=== PATIENT | female | born 1950 | race Caucasian/White ===

== ENCOUNTER 2016-05-08 11:29 | Observation (INO) | payer OTHER ==
[2016-05-08] MEDS ORDERED: FAMOTIDINE 20 MG TAB PO ONE (11:35)
[2016-05-08] MEDS ORDERED: ASPIRIN EC 325 MG TAB PO ONE (11:35)
[2016-05-08] MEDS ORDERED: DIAZEPAM 5 MG TAB PO ONE (11:35)
[2016-05-08] MEDS ORDERED: diphenhydrAMINE 25 MG CAP PO ONE ×2 (11:35→11:55)
[2016-05-08] MEDS ORDERED: NS 1,000 ML IV ONE (11:35)
--- NOTE | 2016-05-08 11:51 | CPEKG ---
Heart Rate: 76 RR Interval: 789 P-R Interval: 128 QRSD Interval: 76 QT Interval: 396 QTC Interval: 446 P [place]: 23 QRS [place]: 67 T Wave [place]: 69 EKG Severity - NORMAL ECG - EKG Impression: SINUS RHYTHM Electronically Signed By: Otoniel Gabriel 09-May-2016 17:21:19
[2016-05-08] MEDS ORDERED: FAMOTIDINE 20 MG TAB ONE (11:55)
[2016-05-08] MEDS ORDERED: ASPIRIN EC 81 MG TAB PO ONE (11:56)
[2016-05-08] MEDS ORDERED: DIAZEPAM 5 MG TAB ONE (11:56)
[2016-05-08] MEDS ORDERED: LIDOCAINE 1% 30 ML SDV ONE (11:57)
[2016-05-08] MEDS ORDERED: fentaNYL 100 MCG/2 ML INJ ONE ×2 (11:58→13:27)
[2016-05-08] MEDS ORDERED: MIDAZOLAM 2 MG/2 ML VIAL ONE ×2 (11:58→13:27)
[2016-05-08] MEDS ORDERED: IOPAMIDOL (ISOVUE-300) 200 ML BTL IV ONE (12:00)
[2016-05-08] MEDS ORDERED: HEPARIN 10,000 UNIT/10 ML MDV ONE (12:02)
[2016-05-08 12:09] LABS: % IMMATURE GRANULYOCYTES 0.6 % (0.0-1.1); ABSOLUTE IMMATURE GRANULOCYTES 0.04 10^3/uL (0.00-0.10); ADD DIFF? NO; ADD MORPH? NO; ADD SCAN? NO; ATYPICAL LYMPHOCYTE FLAG 10 (0-99); FRAGMENT RBC FLAG 0 (0-99); HEMATOCRIT 45.1 % (38.0-47.0); HEMOGLOBIN 15.9 g/dL (12.6-16.3); LEFT SHIFT FLG 0 (0-99); LIPEMIA HEMOLYSIS FLAG 90 (0-99); MEAN CELL HEMOGLOBIN 31.2 pg (27.9-34.1); MEAN CELL HEMOGLOBIN CONCENTR. 35.3 g/dL (32.4-36.7); MEAN CELL VOLUME 88.6 fL (81.5-99.8); MEAN PLATELET VOLUME 9.6 fL (8.7-11.7); PLATELET CLUMPS FLAG 0 (0-99); PLATELET COUNT 204 10^3/uL (150-400); RED BLOOD CELL COUNT 5.09 10^6/uL (4.18-5.33); RED CELL DISTRIBUTION WIDTH 12.4 % (11.5-15.2)
[2016-05-08 12:19] LABS: INR 1.01 (0.83-1.16); PROTIME(PATIENT) 13.2 SEC (12.0-15.0)
--- NOTE | 2016-05-08 12:31 | SUROPNOTE ---
PATRICIA Operative Report - Surgery Date of Procedure: 05/08/2016 Indication: This patient is a 65 year old woman with multiple previous percutaneous revascularization of bilateral SFA chronic total occlisions There are multiple overlapping SMART Nitinol self-expanding stents in the SFA, as well as multiple overlapping Viabahn covered stents in the left SFA extending into the popliteal and slightly into the common femoral. There has been recurrent edge restenosis and thrombosis. The patient has been followed most recently with arterial doppler ultrasound for surveillance. Surveillance ultrasound reveals increase in distal edge velocity, suggestive distal recurrent edge stenosis. She is experiencing moderate severity claudication symptoms in her left lower extremity. Therefore, the patient is brought in electively for percutaneous peripheral intervention, in attempt to prevent recurrent Viabahn stent thrombosis. Procedures performed: 1. Right femoral access 2. Left femoral angiography with lower extremity run-off 3. Drug-coated balloon angioplasty of proximal and distal stented segments in the left SFA. 4. Viabahn stent placement in the left distal SFA. 5. Post-dilation Autocad Designer balloon angioplasty in the left distal SFA. Description of procedure: Description, risks, benefits and alternatives were discussed in detail. Informed consent was obtained. The patient was brought to the catheterization laboratory where a timeout was performed. The right groin was sterilely prepped and draped. 2% lidocaine utilized for local anesthetic. Under fluoroscopic guidance, a 6-Fijian hemostatic sheath placed right common femoral artery utilizing modified Seldinger technique. A 6-Fijian JANA catheter was then used to engage the left common iliac and a Magic Torque wire was advanced. The JANA catheter was exchanged for a straight flush catheter. Runoff angiography of the left lower extremity was performed, demonstrating a focal distal intrastent 75% stenosis and a 50% proximal intrastent stenosis, but no additional areas of critical stenosis. The original 6-Fijian sheath was exchanged over a 0.035 guidewire for a 6-Fijian Destination up-and-over sheath. The Magic Torque wire was re-introduced in the left SFA, extending into the popliteal. A Lutonix 035 5.0mm x 40mm drug-coated balloon was utilized and positioned in the distal SFA to cover the area of intrastent stenosis. This was inflated to 12 atmospheres for 3 minutes and 33 seconds. The Magic Torque wire was exchanged for a 300cm Mailman wire. A 5mm x 5cm Viabahn stent was chosen, carefully positioned to cover the area of distal intrastent restenosis, and was deployed. Stent delivery system was removed. Next, a 5.0mm x 40mm Autocad Designer over the wire balloon was utilized within the distal stented segment for post-dilation, inflated to 20 atmospheres for 30 seconds. There was excellent result by angiography. Autocad Designer balloon was removed. To address the 51% proximal SFA restenosis, the decision was made to perform drug-coated balloon angioplasty in order to prevent further restenosis or recurrent Viabahn stent thrombosis. The Luristic wire was exchanged for the PenBlade wire. A 6.0mm x 40mm Lutonix 035 drug-coated balloon was positioned in the proximal SFA intrastent segment and inflated to 12 atmospheres for 3 minutes and 33 seconds. Balloon was removed. Final runoff angiography was performed with power-injector. There was excellent result demonstrated, no additional areas of critical stenosis seen. The 6-Fijian Destination sheath was exchanged for a 6-Fijian short sheath. Heparin was reversed with Protamine. The sheath will be removed in the CVC. Findings: 1. Hemodynamics: Aortic pressure 123/56, mean of 80. 2. Left lower extremity runoff angiography: The left common and external iliacs are widely patent. There is moderate but not severe internal iliac disease. The left common femoral is widely patent. The left SFA is stented from its origin to its distal portion. The most proximal stent edge is covered with a Nitinol stent with the remainder of the stent being initially Nitinol and then a layer of Viabahn. The origin of the profunda vessel is covered by the edge of a Nitinol stent but not by a Viabahn stent. Therefore, the profunda is patent and has no greater than 50% ostial stenosis. The proximal SFA stented segment contains a proximal 51% intrastent stenosis. The distal SFA stent, which extends beyond the SFA into the popliteal, contains a 75% intrastent edge restenosis. The peroneal vessel, tibioperoneal trunk, anterior tibial and posterior tibial are patent. 3. Percutaneous intervention: The 75% intrastent stenosis of the distal left SFA stent, treated with drug-coated balloon angioplasty, 5mm x 5cm Viabahn stent placement, and post-dilation Autocad Designer balloon angioplasty, with excellent result and 0% residual stenosis confirmed by angiography. The 51% intrastent stenosis of the proximal left SFA stent was treated with drug-coated balloon angioplasty, with excellent result and 0% residual stenosis. Overall Impression: 1. Recurrent distal intrastent edge restenosis in the left SFA at edges of Viabahn covered stent, successfully treated with drug-coated balloon angioplasty , Viabahn stent placement, and post-dilation Autocad Designer balloon angioplasty. 2. Recurrent proximal intrastent edge restenosis in the left SFA, successfully treated with drug-coated balloon angioplasty. Plan: 1. Continue smoking cessation, risk modification, medical therapy. 2. Continue aggressive surveillance strategy with Doppler ultrasound. Portions of this chart were entered by a scribe. I have reviewed this chart and agree with the documentation. Report scribed for Dr. Dominguez Pearson. Report scribed by Candice Watson.
[2016-05-08 12:50] LABS: ANION GAP 12 mEq/L (8-16); CALCIUM 9.3 mg/dL (8.5-10.4); CARBON DIOXIDE 25 mEq/l (22-31); CHLORIDE 103 mEq/L (97-110); CHOLESTEROL 227 mg/dL (140-220); CHOLESTEROL/HDL RATIO 5.16 RATIO (1.00-4.44); CREATININE 0.6 mg/dL (0.6-1.0); GLOMERULAR FILTRATION RATE > 60; GLUCOSE 175 mg/dL (70-100); HIGH DENSITY LIPOPROTEIN 44 mg/dL (40-85); LDL/HDL RATIO 2.43 RATIO (1.00-3.22); LOW DENSITY LIPOPROTEIN 107 mg/dL (80-100); MAGNESIUM 1.6 mg/dL (1.6-2.3); NON-HIGH DENSITY LIPOPROTEIN 183 mg/dL (90-129); POTASSIUM 4.2 mEq/L (3.5-5.2); SODIUM 140 mEq/L (134-144); TRIGLYCERIDE 380 mg/dL (35-135); VERY LOW DENSITY LIPOPROTEINS 76 mg/dL (8-25)
[2016-05-08] MEDS ORDERED: PROTAMINE SULFATE 50 MG/5 ML VIAL IVP ONE (14:33)
[2016-05-08] MEDS ORDERED: ONDANSETRON 4 MG/2 ML VIAL IVP PRN (14:52)
[2016-05-08] MEDS ORDERED: PRASUGREL HCL 10 MG TAB PO ONE ×2 (14:52→15:30)
[2016-05-08] MEDS ORDERED: TEMAZEPAM 15 MG CAP PO PRN (14:52)
[2016-05-08] MEDS ORDERED: HYDROCODONE/APAP 5/325 TAB PO PRN (14:52)
[2016-05-08] MEDS ORDERED: NITROGLYCERIN 0.4 MG BTL SL PRN (14:52)
[2016-05-08] MEDS ORDERED: OXYCODONE/APAP 5/325 TAB PO PRN (14:52)
[2016-05-08] MEDS ORDERED: LORazepam 2 MG/ML INJ IVP PRN (14:52)
[2016-05-08] MEDS ORDERED: ATROPINE SULFATE 1 MG/10 ML SYR IVP PRN (14:52)
[2016-05-08] MEDS ORDERED: ATROPINE SULFATE 1 MG/10 ML SYR ONE (14:56)
--- NOTE | 2016-05-08 15:24 | CPEKG ---
Heart Rate: 60 RR Interval: 1000 P-R Interval: 144 QRSD Interval: 82 QT Interval: 452 QTC Interval: 452 P [place]: 71 QRS [place]: 71 T Wave [place]: 71 EKG Severity - NORMAL ECG - EKG Impression: SINUS RHYTHM Electronically Signed By: Otoniel Gabriel 09-May-2016 17:21:13
[2016-05-08] MEDS: D5W 1/2 NS 1,000 ML IV SCH (17:08)
[2016-05-08] MEDS ORDERED: hydrALAZINE 20 MG/ML VIAL IVP PRN (18:15)
[2016-05-08] MEDS ORDERED: hydrALAZINE 20 MG/ML VIAL IVP ONE (18:30)
[2016-05-08] MEDS: FAMOTIDINE 20 MG TAB PO SCH (20:30)
[2016-05-08] MEDS ORDERED: PARoxetine HCL 20 MG TAB PO SCH (21:00)
[2016-05-09] MEDS: D5W 1/2 NS 1,000 ML IV SCH (00:39)
[2016-05-09 05:08] LABS: % IMMATURE GRANULYOCYTES 0.3 % (0.0-1.1); ABSOLUTE IMMATURE GRANULOCYTES 0.02 10^3/uL (0.00-0.10); ADD DIFF? NO; ADD MORPH? NO; ADD SCAN? NO; ATYPICAL LYMPHOCYTE FLAG 10 (0-99); FRAGMENT RBC FLAG 0 (0-99); HEMATOCRIT 43.1 % (38.0-47.0); HEMOGLOBIN 15.2 g/dL (12.6-16.3); LEFT SHIFT FLG 0 (0-99); LIPEMIA HEMOLYSIS FLAG 90 (0-99); MEAN CELL HEMOGLOBIN CONCENTR. 35.3 g/dL (32.4-36.7); MEAN CELL VOLUME 90.7 fL (81.5-99.8); PLATELET CLUMPS FLAG 10 (0-99); PLATELET COUNT 185 10^3/uL (150-400); RED BLOOD CELL COUNT 4.75 10^6/uL (4.18-5.33); RED CELL DISTRIBUTION WIDTH 12.5 % (11.5-15.2)
[2016-05-09 05:26] LABS: ALBUMIN 3.4 g/dL (3.5-5.0); ANION GAP 9 mEq/L (8-16); ASPARTATE AMINOTRANSFERASE 16 IU/L (14-46); BILIRUBIN,TOTAL 0.4 mg/dL (0.1-1.4); CARBON DIOXIDE 24 mEq/l (22-31); CHLORIDE 104 mEq/L (97-110); CREATININE 0.5 mg/dL (0.6-1.0); GLOMERULAR FILTRATION RATE > 60; GLUCOSE 288 mg/dL (70-100); LACTATE DEHYDROGENASE 386 IU/L (313-618); MAGNESIUM 1.6 mg/dL (1.6-2.3); POTASSIUM 3.9 mEq/L (3.5-5.2); SODIUM 137 mEq/L (134-144)
[2016-05-09] MEDS ORDERED: ACETAMINOPHEN 325 MG TAB ONE (07:30)
[2016-05-09] MEDS ORDERED: LORazepam 2 MG/ML INJ IVP ONE (07:46)
[2016-05-09 07:53] VITALS: BP 146/71; PULSE 70; RESP 18; TEMP 98.2; O2SAT 92
[2016-05-09] MEDS ORDERED: ACETAMINOPHEN/ASA/CAFFEINE 1 EACH TAB PO PRN (07:57)
[2016-05-09] MEDS: FAMOTIDINE 20 MG TAB PO SCH (08:18)
--- NOTE | 2016-05-09 08:30 | PDHOSCONS ---
Hospitalist Consult Hospitalist Consult: 730AM STROKE ALERT NOTE Stroke alert called for Ms Bartholomew after RN noted pt's pupils to be asymmetric. On my arrival, patient was complaining of a severe frontal and retroorbital headache, associated with photophobia, no nausea or vomiting. She reports that she usually drinks at least 1 cup of coffee in the morning and does get caffeine withdrawal headaches occasionally. Pt was also noted to be slightly hypertensive throughout the night (SBP 150-170 range). Gen: NAD, alert and oriented CV: RRR, no murmurs Resp: CTA b/l, no wheezing Abd: soft, nontender, nondistended Ext: no edema Neuro: AO x 3, answering all questions and following commands appropriately; pupillary asymmetry: L 5mm, R 3mm; both equally reactive to light; EOMI and rest of CN II-XII grossly intact; strength 5/5 in all extremities; sensation to light touch intact A/p: Pt is 66/F with Afib on systemic anticoagulation and PVD s/p recent femoral artery PCI who is complaining of acute onset headache and was found to have pupillary asymmetry on exam. Neurology/Stroke was contacted via phone, history and exam was described to them, and given lack of other focal neuro deficits, felt pupillary asymmetry was related to acute headache. CT head was ordered, official read pending, but no evidence of obvious hemorrhage. Will treat headache and reassess symptoms.
[2016-05-09] MEDS ORDERED: PRASUGREL HCL 10 MG TAB PO SCH ×2 (09:00)
[2016-05-09] MEDS ORDERED: ASPIRIN 81 MG CHEWABLE TAB PO SCH ×2 (09:00)
[2016-05-09] MEDS ORDERED: NEBIVOLOL HCL 5 MG TAB PO SCH (09:00)
[2016-05-09] MEDS ORDERED: ASPIRIN EC 325 MG TAB PO SCH (09:00)
--- NOTE | 2016-05-09 09:07 | CT ---
CORRECTED ORDERING PHYSICIAN CT Brain (Without Contrast) 05/09/2016 0757 hours History: Stroke alert. Comparison: None. Technique: Axial computed tomographic images of the brain without contrast. Dose reduction techniques were utilized. Findings: Ventricles, cisterns, and sulci are widened consistent with atrophy. No hydrocephalus, midline shift/herniation, or epidural/subdural hematomas. No acute intraparenchymal hemorrhage or mass effect. Cerebrovascular atherosclerosis. Hypodensities in the white matter of bilateral cerebral hemispheres. Bone windows demonstrate no displaced fractures. Impression: 1. Minimal atrophy. 2. No acute hemorrhage, hydrocephalus, or mass effect. 3. Cerebrovascular atherosclerosis. 4. No definite acute infarct. 5. Minimal microvascular ischemic disease. 6. Consider MRI of the brain without and with contrast enhancement, if there is continued clinical concern. Report relayed by Dr. Casper to nurse Drummond 05/09/2016 08:13 AM TRELL
--- NOTE | 2016-05-09 09:30 | CPEKG ---
Heart Rate: 71 RR Interval: 845 P-R Interval: 132 QRSD Interval: 86 QT Interval: 412 QTC Interval: 448 P [place]: 29 QRS [place]: 70 T Wave [place]: 76 EKG Severity - NORMAL ECG - EKG Impression: SINUS RHYTHM Electronically Signed By: Otoniel Gabriel 09-May-2016 17:21:09
--- NOTE | 2016-05-09 09:35 | SOAPPROG ---
SOAP Progress Note Assessment/Plan: Assessment: Cardiology ([place]) 1. S/p left SFA intervention 2/2 proximal and distal instent edge restenosis. Treated w/ drug coated balloon angioplasty at proximal and distal stent edges, self expanding Nitinol stent x 1 5 mm x 5 cm at distal stent edge. Will continue Effient 10 mg/d. 2. Stroke alert called this am due to acute onset headache and asymmetric pupils L>R. There were no focal neurologic deficits. Non-contrast head CT is normal. Her headache is resolved at this time. 3. CAD s/p PCI. 4. Paroxysmal atrial fibrillation. Pradaxa is currently on hold. 5. Uncontrolled HTN. 6. Hyperlipidemia, refusal to treat medically. 7. Continued tobacco use. Plan: 1. Continue Effient 10 mg/d. Resume Pradaxa 150 mg bid tonight. 2. Home monitoring of BP prior to follow up visit. 3. Return to ED for any new neurologic symptoms. 4. Discharge to home today. 5. Follow up visit scheduled for 05/15/15 at 10 am. 6. Consider outpatient neurology evaluation. 05/09/16 09:42 Subjective: Feels very good this am. Headache is resolved. No problems with speaking, swallowing, or unilateral weakness. R groin in non-tender and otherwise uncomplicated. Objective: Vital Signs Temp Pulse Resp BP Pulse Ox 36.8 C 70 18 146/71 H 92 05/09/16 07:30 05/09/16 07:30 05/09/16 07:30 05/09/16 07:30 05/09/16 07:30 Laboratory Results 05/09/16 04:09 05/09/16 04:09 05/08/16 05/09/16 05/10/16 05:59 05:59 05:59 Intake Total 1500 Balance 1500 PT 13.2 SEC (12.0-15.0) 05/08/16 12:01 INR 1.01 (0.83-1.16) 05/08/16 12:01 - Time Spent With Patient Time Spent With Patient: 40 minutes spent in physical exam, coordination of care, and documentation. - Pending Discharge Pending Discharge Within 24 Hours: Yes Pending Discharge Date: 05/10/16 Pending Discharge Time: 11:00 Physical Exam - Physical Exam General Appearance: WD/WN, alert, no apparent distress EENT: No PERRL/EOMI (L > R pupillary size, mild) Respiratory: chest non-tender, lungs clear, normal breath sounds Cardiac/Chest: normal peripheral pulses, regular rate, rhythm Peripheral Pulses: 1+: dorsalis-pedis (R), dorsalis-pedis (L) Abdomen: normal bowel sounds, non-tender, soft Extremities: normal range of motion, non-tender, normal inspection, normal capillary refill Neuro/Psych: no motor/sensory deficits, alert, normal mood/affect, oriented x 3 , No aphasia, No motor weakness, No sensory deficit ICD10 Worksheet Patient Problems: Problems Problem Status Diagnosed Diabetes mellitus type 2 Active
== END 2016-05-09 11:21 | disposition home or self-care (01) ==
LOC: FCATH 11:29 → F2W 14:44
PROVIDERS: ADMIT Internal Medicine Interventional Cardiology; ATTEND Internal Medicine Interventional Cardiology
PROC: 047L35Z Dilation of Left Femoral Artery with Two Drug-eluting Intraluminal Devices, Percutaneous Approach (ICD-10-PCS; principal; 2016-05-08)
DX: T82.856A Stenosis of peripheral vascular stent, initial encounter (principal); I70.212 Atherosclerosis of native arteries of extremities with intermittent claudication, left leg; R51 Headache; E11.9 Type 2 diabetes mellitus without complications; I25.10 Atherosclerotic heart disease of native coronary artery without angina pectoris; I48.0 Paroxysmal atrial fibrillation; E78.5 Hyperlipidemia, unspecified; I10 Essential (primary) hypertension; F17.210 Nicotine dependence, cigarettes, uncomplicated; Z79.01 Long term (current) use of anticoagulants
CPT/HCPCS: 37226; 70450; 75710; 93005; C1725; C1769; C1874; C2623; J0360; J1644; J2250; J2720; J3010; Q9967; J0461

== ENCOUNTER 2016-07-28 12:21 | Inpatient (IN) | payer OTHER ==
[2016-07-28] MEDS ORDERED: IOPAMIDOL (ISOVUE-300) 100 ML BTL IV ONE ×3 (12:56→18:30)
[2016-07-28] MEDS ORDERED: IOPAMIDOL (ISOVUE 370) 100 ML BTL IV ONE ×2 (12:57→13:56)
[2016-07-28 13:41] LABS: CREATININE 0.6 mg/dL (0.6-1.0); GLOMERULAR FILTRATION RATE > 60
[2016-07-28] MEDS ORDERED: fentaNYL 100 MCG/2 ML INJ ONE ×2 (17:25→19:48)
[2016-07-28] MEDS ORDERED: MIDAZOLAM 2 MG/2 ML VIAL ONE (17:26)
[2016-07-28] MEDS ORDERED: HEPARIN/DEXTROSE 25,000 UNIT/500 ML BAG ONE (17:26)
[2016-07-28] MEDS ORDERED: NALOXONE HCL 0.4 MG/ML INJ ONE (17:49)
[2016-07-28] MEDS ORDERED: ONDANSETRON 4 MG/2 ML VIAL IVP PRN (18:50)
--- NOTE | 2016-07-28 19:54 | POSTOPPROG ---
Post Op Note Date of Operation: 07/28/16 Surgeon: Karthik Evans Anesthesia: Local (Specify) (and IV fentanyl) Pre-op Diagnosis: Right femoropopliteal arterial occlusion Post-op Diagnosis: same Indication: Ischemic right leg Procedure: Initiation of catheter directed arterial thrombolysis right fem/pop Findings: Occlusion of right common femoral, SFA, and popliteal arteries Inf/Abcess present in the surg proc area at time of surgery?: No EBL: Minimal Complications: 0
[2016-07-28] MEDS ORDERED: HEPARIN/DEXTROSE 500 ML IV SCH (20:00)
[2016-07-28] MEDS ORDERED: NALOXONE HCL 0.4 MG/ML INJ IVP PRN (20:26)
[2016-07-28] MEDS ORDERED: fentaNYL 100 MCG/2 ML INJ IVP ONE (20:30)
[2016-07-28] MEDS: LORazepam 1 MG TAB PO PRN (20:48)
[2016-07-28] MEDS: HYDROmorphONE/DILAUDID 6 MG/30 ML PCA IV PRN (20:56)
[2016-07-28 21:37] LABS: APTT 55.2 SEC (23.0-38.0)
[2016-07-28] MEDS: ALTEPLASE 5 MG in NS 100 ML IV SCH (22:58)
[2016-07-29] MEDS: ALTEPLASE 5 MG in NS 100 ML IV SCH (07:57)
[2016-07-29 08:28] LABS: APTT 44.6 SEC (23.0-38.0)
[2016-07-29] MEDS: HYDROmorphONE/DILAUDID 6 MG/30 ML PCA IV PRN (10:58)
[2016-07-29] MEDS ORDERED: FLUMAZENIL 0.5 MG/5 ML MDV IVP ONE (15:21)
[2016-07-29] MEDS ORDERED: hydrALAZINE 20 MG/ML VIAL ONE (16:25)
--- NOTE | 2016-07-29 16:57 | GCON ---
[f rep st] CONSULTATION CRITICAL CARE CONSULTATION DATE OF CONSULTATION: 07/29/2016 REASON FOR CONSULTATION: Acute arterial thrombosis. HISTORY: The patient is a 66-year-old with severe peripheral vascular disease. She is status post percutaneous angioplasty and stent grafts placed bilaterally in 2011. She was seen in the emergency department in April 2015 with possible claudication on the left. Evaluation at that time showed chronic occlusion of her left SFA stent, but she had good reconstitution of blood flow below this. She was sent back to see Dr. Pearson as an outpatient. At this time, she comes in with occlusion of the right side. This occurred yesterday. She had appa rently been off anticoagulation with dabigatran/Pradaxa over the last several days prior to her occl usion secondary to an illness related to her . In any case, she presented to Dr. Goff yester day with acute symptoms of right lower extremity pain, discoloration, and pulselessness. She was re ferred urgently to Interventional Radiology. Catheter-directed thrombolysis was initiated by Dr. Ced buenrostro for occlusion of the right common femoral, SFA, and popliteal arteries. This was done from the left groin. She was returned to the intensive care unit on a tPA drip. Overnight, she did have re turn of circulation to the right lower extremity. She has had ongoing pain; however, ischemia is re solving. She is to go back to Interventional Radiology today for further assessment and treatment a s indicated. PAST MEDICAL HISTORY: Remarkable for her underlying peripheral vascular disease, hyperlipidemia, pa roxysmal atrial fibrillation, ongoing tobacco abuse, systemic hypertension, and type 2 diabetes. MEDICATIONS: Listed on admission include Pradaxa, Bystolic, Paxil, and Effient. DRUG ALLERGIES: Azithromycin, cephalexin, ciprofloxacin, metformin, and morphine. SOCIAL HISTORY: The patient is with a very supportive and family. She has smoked c igarettes for many years and continues to smoke approximately a pack of cigarettes per day. Alcohol is denied. Her primary care physician is Brooke Fretias MD, at the [facility]. She is no w followed by Dr. Goff for her peripheral vascular disease as Dr. Pearson recently left. FAMILY HISTORY: Noncontributory. REVIEW OF SYSTEMS: Currently unobtainable as the patient is somnolent secondary to pain medications . Per her , she does not use oxygen or inhalers at home. She has never been formally diagno sed with COPD per his history. She also has a history of coronary artery disease. I do not know th e full details regarding that diagnosis. Further history will be obtained. PHYSICAL EXAMINATION: GENERAL: A woman who appears older than her stated age. She is lying flat i n bed, snoring, and an oxygen mask is in place. She will arouse but remains sleepy. VITAL SIGNS: Blood pressure is 162/58, heart rate 90 with sinus rhythm on the monitor, saturations are 94% with a non-rebreather mask in place. HEENT: Mucous membranes are somewhat dry. RESPIRATORY: She is sno ring with sonorous sounds over her trachea. The lungs appear clear. Breath sounds are diminished. Wheezes are difficult to appreciate with her snoring. HEART: Regular in rate and rhythm. Heart t ones are distant. ABDOMEN: Soft, nontender. Bowel sounds are present but diminished. EXTREMITIES : Without significant edema. There is good color to the right lower extremity. It is warm and nelsy roximately equal in color and warmth to the left. Pulses are diminished but present. NEUROLOGIC: Status cannot be fully assessed as she is quite somnolent. DATABASE: Radiologic studies per Dr. Evans are as outlined above. No CBC has been obtained. Fibr inogen is 90, PTT 35. Creatinine is 0.6. ASSESSMENT: 1. Severe peripheral vascular disease, status post bilateral stenting, now presenting with occlusio n on the right side as described above. She is status post tPA lysis with an excellent result thus far. Further evaluation is underway. If tPA is discontinued, she will need full-dose anticoagulati on. This will be re-initiated with heparin by weight-based protocol. Anti-platelet therapy will ne ed to be restarted, but this does not have to be done today. 2. Right lower extremity pain. Secondary to #1. She is on Dilaudid and is quite sleepy at this ti me secondary to Dilaudid by CONSTRUCTION SUPERINTENDENT and p.r.n. She is also on p.r.n. Ativan, which is likely contributi ng. Pain issues hopefully will be better controlled as her ischemia resolves. 3. History of other medical problems including hypertension, hyperlipidemia, type 2 diabetes, etc. 4. Tobacco abuse, continuing to smoke. She likely does have a component of chronic obstructive pul monary disease; however, she is not on oxygen or inhaled therapies. 5. History of sleep apnea. She was on CPAP in the past but subsequently lost 45 pounds. CPAP was discontinued with this. She does snore when she is on her back but little when she is on her sides. She tends to sleep on her sides. 6. History of paroxysmal atrial fibrillation; in normal sinus rhythm. PLAN: The patient will be returned to the intensive care unit following return to Interventional Ra diology. If tPA is stopped, she will be placed on IV heparin per weight-based protocol. Effient ca n be restarted within the next several days if she does well. Appropriate pain management will be m aintained. Laboratory will be obtained today and followed. Appropriate treatment for laboratory ab normalities will be initiated as needed. Oxygen will be continued. Intravenous fluids will be give n. She will be allowed to eat only if mental status is within normal limits and she is not overly s edated. Further plans and recommendations will be made based on her progress over the next 12-24 hours. /[id number]/MODL
--- NOTE | 2016-07-29 16:58 | POSTOPPROG ---
Post Op Note Date of Operation: 07/29/16 Surgeon: Karthik Evans Anesthesia: Local (Specify) Pre-op Diagnosis: Femoropopliteal arterial occlusion, right leg Post-op Diagnosis: Lysed. Stented pre-existing dissection, right external iliac. Indication: Assess 20 hours of IA thrombolysis with TPA Procedure: Arteriography of right leg. Stenting of right EIA Findings: Lysis complete. 7 mm X 60 mm self-expanding stent, right EIA Inf/Abcess present in the surg proc area at time of surgery?: No EBL: 50-100 Complications: Patient is poorly responsive. ?Dilaudid effect vs. ICH? Will get noncontrast CT head.
[2016-07-29] MEDS ORDERED: IOPAMIDOL (ISOVUE-300) 100 ML BTL IV ONE (17:30)
[2016-07-29] MEDS: LORazepam 1 MG TAB PO PRN (17:40)
[2016-07-29 18:24] LABS: % IMMATURE GRANULYOCYTES 0.5 % (0.0-1.1); ABSOLUTE IMMATURE GRANULOCYTES 0.05 10^3/uL (0.00-0.10); ADD DIFF? NO; ADD MORPH? NO; ADD SCAN? NO; ATYPICAL LYMPHOCYTE FLAG 0 (0-99); FRAGMENT RBC FLAG 0 (0-99); HEMATOCRIT 41.3 % (38.0-47.0); HEMOGLOBIN 13.9 g/dL (12.6-16.3); LEFT SHIFT FLG 30 (0-99); LIPEMIA HEMOLYSIS FLAG 80 (0-99); MEAN CELL HEMOGLOBIN 30.9 pg (27.9-34.1); MEAN CELL HEMOGLOBIN CONCENTR. 33.7 g/dL (32.4-36.7); MEAN CELL VOLUME 91.8 fL (81.5-99.8); MEAN PLATELET VOLUME 9.9 fL (8.7-11.7); PLATELET CLUMPS FLAG 20 (0-99); PLATELET COUNT 93 10^3/uL (150-400); RED CELL DISTRIBUTION WIDTH 12.7 % (11.5-15.2)
[2016-07-29 18:36] LABS: ANION GAP 7 mEq/L (8-16); CALCIUM 7.2 mg/dL (8.5-10.4); CARBON DIOXIDE 22 mEq/l (22-31); CHLORIDE 110 mEq/L (97-110); CREATININE 0.5 mg/dL (0.6-1.0); GLOMERULAR FILTRATION RATE > 60; GLUCOSE 229 mg/dL (70-100); POTASSIUM 4.1 mEq/L (3.5-5.2); SODIUM 139 mEq/L (134-144)
[2016-07-29] MEDS ORDERED: HEPARIN/DEXTROSE 500 ML IV SCH (20:00)
[2016-07-29] MEDS: HEPARIN 10,000 UNIT/10 ML MDV IVP PRN (21:05)
[2016-07-30] MEDS: LORazepam 1 MG TAB PO PRN ×2 (03:42→12:58)
[2016-07-30 04:06] LABS: % IMMATURE GRANULYOCYTES 0.3 % (0.0-1.1); ABSOLUTE IMMATURE GRANULOCYTES 0.03 10^3/uL (0.00-0.10); ADD DIFF? NO; ADD MORPH? NO; ADD SCAN? NO; ATYPICAL LYMPHOCYTE FLAG 0 (0-99); FRAGMENT RBC FLAG 0 (0-99); HEMATOCRIT 42.3 % (38.0-47.0); HEMOGLOBIN 14.6 g/dL (12.6-16.3); LEFT SHIFT FLG 0 (0-99); LIPEMIA HEMOLYSIS FLAG 90 (0-99); MEAN CELL HEMOGLOBIN 32.2 pg (27.9-34.1); MEAN CELL HEMOGLOBIN CONCENTR. 34.5 g/dL (32.4-36.7); MEAN CELL VOLUME 93.4 fL (81.5-99.8); PLATELET CLUMPS FLAG 0 (0-99); PLATELET COUNT 101 10^3/uL (150-400); RED BLOOD CELL COUNT 4.53 10^6/uL (4.18-5.33); RED CELL DISTRIBUTION WIDTH 12.8 % (11.5-15.2)
[2016-07-30 04:40] LABS: ALANINE AMINOTRANSFERASE 22 IU/L (9-52); ALBUMIN 3.3 g/dL (3.5-5.0); ALKALINE PHOSPHATASE 85 IU/L (38-126); ANION GAP 9 mEq/L (8-16); ASPARTATE AMINOTRANSFERASE 16 IU/L (14-46); BILIRUBIN,TOTAL 0.7 mg/dL (0.1-1.4); BILIRUBIN-CONJUGATED 0.3 mg/dL (0.0-0.5); BILIRUBIN-UNCONJUGATED 0.4 mg/dL (0.0-1.1); CALCIUM 8.6 mg/dL (8.5-10.4); CARBON DIOXIDE 23 mEq/l (22-31); CHLORIDE 107 mEq/L (97-110); CREATININE 0.6 mg/dL (0.6-1.0); GLOMERULAR FILTRATION RATE > 60; GLUCOSE 220 mg/dL (70-100); MAGNESIUM 1.7 mg/dL (1.6-2.3); POTASSIUM 4.3 mEq/L (3.5-5.2); SODIUM 139 mEq/L (134-144); TOTAL PROTEIN 5.9 g/dL (6.3-8.2)
--- NOTE | 2016-07-30 06:29 | CPEKG ---
Heart Rate: 81 RR Interval: 741 P-R Interval: 132 QRSD Interval: 78 QT Interval: 400 QTC Interval: 465 P [place]: 70 QRS [place]: 75 T Wave [place]: 102 EKG Severity - ABNORMAL ECG - EKG Impression: SINUS TACHYCARDIA EKG Impression: MULTIPLE ATRIAL PREMATURE COMPLEXES EKG Impression: NONSPECIFIC T ABNORMALITIES, ANT-LAT LEADS Electronically Signed By: Dejuan Bates 31-Jul-2016 06:59:05
[2016-07-30] MEDS: HEPARIN 10,000 UNIT/10 ML MDV IVP PRN (12:15)
[2016-07-30] MEDS ORDERED: TEMAZEPAM 15 MG CAP PO PRN (13:24)
[2016-07-30] MEDS ORDERED: LORazepam 1 MG TAB PO PRN (13:25)
[2016-07-30] MEDS ORDERED: ASPIRIN 81 MG CHEWABLE TAB PO ONE (13:25)
--- NOTE | 2016-07-30 13:38 | PDINTPN ---
[facility] Progress Note Assessment/Plan: Assessment: Severe peripheral vascular disease with ischemia/arterial clot of the right lower extremity. Status post tPA lysis with good result. On heparin drip. History of tobacco abuse, ongoing, with no plans of stopping smoking. COPD present but not on inhalers. Wants to go out and smoke, wants to leave the hospital to go smoke, etc. Anxiety History of hypertension, history of depression. Blood pressure is fine off of Bystolic for now. On Paxil Plan: Will restart Pradaxa at 9PM today. Effect is maximal in about 2 hours. Will restart Effient now and give 1 dose of aspirin. Observe overnight. If pulses remaining good will consider discharge tomorrow. Will start a nicotine patch, increase Ativan, add sleepers. I encouraged her to stay at least until tomorrow. I will discuss her care with Dr. Goff if he is available. Subjective: Somewhat agitated. Wants to go out and smoke. Wants to go home. Denies leg pain. Objective: Vital Signs Temp Pulse Resp BP Pulse Ox 36.8 C 84 13 98/54 L 98 07/30/16 11:00 07/30/16 11:00 07/30/16 11:00 07/30/16 11:00 07/30/16 11:00 Laboratory Results 07/30/16 03:30 07/30/16 03:30 07/29/16 07/30/16 07/31/16 05:59 05:59 05:59 Intake Total 1460 704 Output Total 750 1250 Balance 710 -546 Physical Exam - Physical Exam General Appearance: alert, mild distress (Secondary to anxiety) EENT: other (Nasal cannula at 4-5 L: 98%) Neck: normal inspection (No JVD) Respiratory: decreased breath sounds, wheezing (Few, not tight) Cardiac/Chest: regular rate, rhythm, systolic murmur (Soft systolic murmur) Abdomen: normal bowel sounds, non-tender, soft Skin: normal color, warm/dry Extremities: other (Right leg is warm, normal color. Not painful or tender. Pulses present by Doppler, equal to the left), No pedal edema Neuro/Psych: no motor/sensory deficits, No cognition abnormalities (However, anxious) ICD10 Worksheet Patient Problems: Problems Problem Status Onset Diabetes mellitus type 2 Active Peripheral vascular disease Acute Coronary artery disease Acute Hypertension Acute Hyperlipidemia Acute Atrial fibrillation Acute
[2016-07-30] MEDS: NICOTINE 21 MG/24 HR PATCH TD SCH (13:52)
[2016-07-30] MEDS: PRASUGREL HCL 10 MG TAB PO SCH (13:52)
[2016-07-30] MEDS: HYDROmorphONE/DILAUDID 1 MG/ML SYR IVP PRN ×2 (15:21→20:55)
[2016-07-30] MEDS ORDERED: TEARS/DEXTRAN 70/HYPROMELLOSE 15 ML OPHT.BTL EACHEYE PRN (17:02)
[2016-07-30] MEDS: PARoxetine HCL 20 MG TAB PO SCH ×2 (17:04→20:54)
[2016-07-30] MEDS: DABIGATRAN ETEXILATE MESYL 150 MG CAP PO SCH (20:56)
[2016-07-30] MEDS ORDERED: PARoxetine HCL 20 MG TAB PO SCH (21:00)
[2016-07-31] MEDS ORDERED: NEBIVOLOL HCL 5 MG TAB PO SCH (09:00)
[2016-07-31] MEDS ORDERED: NEBIVOLOL HCL 10 MG PO SCH (09:00)
[2016-07-31] MEDS ORDERED: CHOLECALCIFEROL VIT D3 1,000 UNITS TAB PO SCH (09:00)
[2016-07-31] MEDS: DABIGATRAN ETEXILATE MESYL 150 MG CAP PO SCH (10:54)
[2016-07-31] MEDS: PRASUGREL HCL 10 MG TAB PO SCH (10:54)
[2016-07-31] MEDS: NICOTINE 21 MG/24 HR PATCH TD SCH (10:55)
[2016-07-31 11:24] VITALS: RESP 16; TEMP 99; O2SAT 92
[2016-07-31 11:29] VITALS: BP 142/67; PULSE 78
--- NOTE | 2016-07-31 13:24 | PDINTPN ---
[employer] Progress Note Assessment/Plan: Assessment/Plan: * Severe peripheral vascular disease with ischemia/arterial clot of the right lower extremity. Status post tPA lysis with good result. -now on oral Pradaxa * History of tobacco abuse, ongoing, with no plans of stopping smoking. COPD present but not on inhalers. Wants to go out and smoke, wants to leave the hospital to go smoke, etc. * Anxiety-better controlled * History of hypertension, history of depression. Blood pressure is fine off of Bystolic for now. On Paxil * Disposition-stable from a critical care standpoint. Okay for discharge home. Subjective: Patient is currently resting comfortably. She was up ambulating earlier with physical therapy and did well. She complains of some mild left leg pain. There is no shortness of breath cough or production of sputum. There is no chest pain pleuritic-type chest pain or angina equivalent. She wishes to go home Objective: Vital Signs Temp Pulse Resp BP Pulse Ox 37.2 C 78 16 142/67 H 92 07/31/16 09:00 07/31/16 11:00 07/31/16 11:00 07/31/16 11:00 07/31/16 11:00 Laboratory Results 07/30/16 03:30 07/30/16 03:30 07/30/16 07/31/16 08/01/16 05:59 05:59 05:59 Intake Total 704 2319 Output Total 1250 2000 Balance -546 319 Physical Exam - Physical Exam General Appearance: alert, no apparent distress EENT: PERRL/EOMI, normal ENT inspection, pharynx normal, TMs normal Neck: non-tender, full range of motion, supple, normal inspection Respiratory: prolonged expiration, No respiratory distress, No accessory muscle use, No wheezing Cardiac/Chest: normal peripheral pulses, regular rate, rhythm Peripheral Pulses: 2+: carotid (R), carotid (L), femoral (R), femoral (L), dorsalis-pedis (R), dorsalis-pedis (L) Abdomen: normal bowel sounds, non-tender, soft Pelvic Exam: deferred Rectal: deferred Skin: normal color, warm/dry Extremities: normal range of motion, non-tender, normal inspection, normal capillary refill Neuro/Psych: alert ICD10 Worksheet Patient Problems: Problems Problem Status Onset Diabetes mellitus type 2 Active Atrial fibrillation Acute Coronary artery disease Acute Hyperlipidemia Acute Hypertension Acute Peripheral vascular disease Acute
--- NOTE | 2016-07-31 14:07 | SOAPPROG ---
SOAP Progress Note Assessment/Plan: Assessment: Doing well from post lysis standpoint. Plan: OK to D/C home. Discussed with patient importance of staying on both Effient and Pradaxa to prevent future clotting. 07/31/16 14:06 Subjective: No complaints. Leg feels good. Objective: Vital Signs Temp Pulse Resp BP Pulse Ox 37.2 C 78 16 142/67 H 92 07/31/16 09:00 07/31/16 11:00 07/31/16 11:00 07/31/16 11:00 07/31/16 11:00 Laboratory Results 07/30/16 03:30 07/30/16 03:30 07/30/16 07/31/16 08/01/16 05:59 05:59 05:59 Intake Total 704 2319 Output Total 1250 1999 Balance -546 319 Mild bruising at LT groin access. Symmetric cap refill and temperature at both legs. Symmetric pulses. ICD10 Worksheet Patient Problems: Problems Problem Status Onset Diabetes mellitus type 2 Active Atrial fibrillation Acute Coronary artery disease Acute Hyperlipidemia Acute Hypertension Acute Peripheral vascular disease Acute
--- NOTE | 2016-07-31 14:59 | PDIAF ---
- Medication Management Discharge Medications: Medications to Continue on Transfer Nebivolol HCl [Bystolic 10 mg] 10 mg PO DAILY 12/29/11 [Last Taken 07/28/16] PARoxetine HCL [Paxil 20mg (*)] 40 mg PO HS 12/29/11 [Last Taken 07/26/16] Prasugrel HCl [Effient 10mg (*)] 10 mg PO DAILY 10/19/14 [Last Taken 06/28/16] Cholecalciferol Vit D3 [Vitamin D3 (*)] 5,000 units PO DAILY 05/08/16 [Last Taken 07/27/16] Dabigatran Etexilate Mesyl [Pradaxa 150 MG (*)] 150 mg PO BID #60 cap 07/31/16 [ Last Taken Unknown] Discharge Medications: Refer to the Discharge Home Medication list for PRN reason. - Orders Services needed: Home Care, Registered Nurse, Physical Therapy Home Care Face to Face: I certify that this patient was under my care and that I had the required [id number] encounter meeting the encounter requirements on the discharge day. My findings support the fact that the patient is homebound as defined in CMS Chapter 7 Medicare Benefits Manual 30.1.1, The condition of the patient is such that there exists a normal inability to leave home and consequently, leaving home would require a considerable and taxing effort. Diet Recommendation: no restrictions on diet Diet Texture: Regular Texture Diet - Follow Up Care Current Providers and Referrals: Patient,NotPresent [Primary Care Provider] -
[2016-08-01] MEDS ORDERED: PRASUGREL HCL 10 MG TAB PO SCH (09:00)
== END 2016-07-31 15:03 | disposition home health service (06) | DRG 252 ==
LOC: FIMAGING 12:21 → F2N 18:47
PROVIDERS: ADMIT Radiology Diagnostic Radiology; ATTEND Radiology Diagnostic Radiology
PROC: 3E03317 Introduction of Other Thrombolytic into Peripheral Vein, Percutaneous Approach (ICD-10-PCS; 2016-07-28)
PROC: 047H3DZ Dilation of Right External Iliac Artery with Intraluminal Device, Percutaneous Approach (ICD-10-PCS; principal; 2016-07-29)
DX: I74.3 Embolism and thrombosis of arteries of the lower extremities (principal); I77.77 Dissection of artery of lower extremity; T82.856A Stenosis of peripheral vascular stent, initial encounter; J44.9 Chronic obstructive pulmonary disease, unspecified; E78.5 Hyperlipidemia, unspecified; I48.0 Paroxysmal atrial fibrillation; F17.210 Nicotine dependence, cigarettes, uncomplicated; I10 Essential (primary) hypertension; E11.9 Type 2 diabetes mellitus without complications; F41.9 Anxiety disorder, unspecified
CPT/HCPCS: 85520-90; 97161-GP; C1757; C1760; C1769; G8978-GP-CI; G8979-GP-CH; J0360; J1170; J1644; J2250; J2310; J2997; J3010; Q9967

== ENCOUNTER → 2016-09-21 | Outpatient (CLI) | payer OTHER | LOC: FIMAGING 07:23 | PROVIDERS: ATTEND Internal Medicine Cardiovascular Disease | DX: M79.1 Myalgia (principal); I77.1 Stricture of artery ==

== ENCOUNTER 2016-11-06 22:05 | Emergency (ER) | payer OTHER, MEDICAID ==
--- NOTE | 2016-11-06 22:25 | EDPHY ---
H & P Time Seen by Provider: 11/06/16 22:12 HPI/ROS: HPI Right shoulder injury. 66-year-old female by private vehicle with her son. This patient reports that she tripped and fell on her right shoulder, flush earlier today. She was carrying some boxes and had her arm tucked into her side, therefore she landed on her right shoulder. She complains of isolated right shoulder pain. She did not hit her head. There was no loss of consciousness. She denies any neck pain. No loss of sensation or weakness in her extremities. She denies any other injury or complaint. ROS: Constitutional: No fever, no chills. No weakness. Respiratory: No cough. No shortness of breath. Cardiac: No chest pain, no palpitations. Gastrointestinal: No abdominal pain, no vomiting, no diarrhea. Musculoskeletal: No back pain. No neck pain. As above. Skin: No rashes. No lacerations or abrasions. Neurological: No headache. No focal weakness or altered sensation. Past medical history: Vascular disease with claudication, hypertension, hyperlipidemia. Social history: Smoker. No alcohol. Here with her son. Physical Exam: General Appearance: Alert, no distress. This patient is responding to questions appropriately and in full sentences. This patient appears well- hydrated and well-nourished. Eyes: Pupils equal and round no pallor or injection. No lid edema, erythema or injection. Right shoulder exam: No gross evidence of deformity or dislocation. No significant swelling. No ecchymosis, erythema or warmth. The right shoulder is grossly symmetric with the left shoulder. The axillary nerve distribution is intact. No pain or deformity noted on palpation over the right AC joint. The right upper extremity is neurovascularly intact. She does have discomfort with flexion, extension in AB duction passively and actively. Neurological: Motor sensory function is grossly intact. Cranial nerves are normal. Gait is normal. Skin: Warm and dry, no rashes. Musculoskeletal: Neck is supple and nontender. Extremities are symmetrical. All joints range without pain or impingement except the right shoulder. Psychiatric: No agitation. No depression. Database: EKG: Imaging: Right shoulder x-ray series: Negative for fracture, subluxation, dislocation. Interpreted by me. Chest x-ray AP portable; the cardiac mediastinal silhouette is unremarkable. No evidence of infiltrate or pneumothorax. No acute cardiopulmonary disease process noted. The bony elements are unremarkable. AP views of the clavicles and glenohumeral joints are symmetrical. No evidence of fracture or dislocation. Interpreted by me. Procedures: Emergency department course: Patient given 2 [place] tablets and sent for appropriate x-rays as above. Results of x-rays discussed with the patient. I will send her home with a take- home pack of Vicodin. Plan will be to have her follow up with her primary care physician, Dr. Brooke Freitas in 2-3 days for re-evaluation. Her primary care physician can order an MRI of her right shoulder for further evaluation as needed. I suspect a shoulder sprain versus rotator cuff injury is being a source of her pain. She is in agreement of this plan. Follow-up and return to emergency department precautions were thoroughly discussed with her. All of her questions were answered. She was discharged in good condition. Differential Diagnosis: The differential diagnosis on this patient includes but is not limited to right shoulder sprain, right shoulder rotator cuff injury. Fracture, subluxation, dislocation involving the right shoulder/right humerus, AC joint separation unlikely. This represents a partial list of diagnoses considered. These considerations are based on history, physical exam, past history, reassessment and diagnostic testing. Smoking Status: Current every day smoker Constitutional: Initial Vital Signs Temperature (C) 36.8 C 11/06/16 22:10 Heart Rate 74 11/06/16 22:10 Respiratory Rate 16 11/06/16 22:10 Blood Pressure 218/81 H 11/06/16 22:10 O2 Sat (%) 95 11/06/16 22:10 O2 Delivery Mode Room Air Allergies/Adverse Reactions: azithromycin Allergy (Verified 11/06/16 22:27) cephalexin monohydrate [From Keflex] Allergy (Verified 11/06/16 22:27) Abdominal Pain ciprofloxacin [From Cipro] Allergy (Verified 11/06/16 22:27) ciprofloxacin HCl [From Cipro] Allergy (Verified 11/06/16 22:27) metformin Allergy (Verified 11/06/16 22:27) Diarrhea morphine Allergy (Verified 11/06/16 22:27) Other-Enter Comments Home Medications: Medication Instructions Recorded Nebivolol HCl [Bystolic 10 mg] 10 mg PO DAILY 12/29/11 PARoxetine HCL [Paxil 20mg (*)] 40 mg PO HS 12/29/11 Prasugrel HCl [Effient 10mg (*)] 10 mg PO DAILY 10/19/14 Cholecalciferol Vit D3 [Vitamin D3 5,000 units PO DAILY 05/08/16 (*)] Dabigatran Etexilate Mesyl 150 mg PO BID #60 cap 07/31/16 [Pradaxa 150 MG (*)] Medical Decision Making - Diagnostics Imaging Results: Imaging Impressions Shoulder X-Ray 11/06/16 22:12 Impression: Negative for fracture. Right AC joint degenerative changes have progressed slightly and could contribute to rotator cuff impingement. Departure - Departure Disposition: Home, Routine, Self-Care Clinical Impression: Sprain of right shoulder Condition: Good Instructions: Shoulder Sprain (ED) Additional Instructions: Read and follow provided instructions. Follow-up with your primary care physician, Dr. Brooke Freitas, in 1-2 days for re- evaluation and consideration of an MRI to evaluate for a rotator cuff injury as discussed. Ibuprofen dosin mg every 6 hours with meals for the next 3 days only. [place]/Percocet dosin-2 every 4-[address] for [address] not drive on this medication. Return to the emergency department for worsening pain, loss of sensation or weakness in right arm, discoloration, swelling or other serious concerns. Referrals: Brooke Freitas MD [Primary Care Provider] - As per Instructions
[2016-11-06 22:27] VITALS: BP 218/81; PULSE 74; RESP 16; TEMP 98.2; O2SAT 95
[2016-11-06] MEDS ORDERED: HYDROCOD/APAP 5/325 PREPACK#6 BTL TAKEHOME ONE (22:43)
== END 2016-11-06 22:57 | disposition home or self-care (01) ==
LOC: CED 22:05
DX: S43.401A Unspecified sprain of right shoulder joint, initial encounter (principal); I10 Essential (primary) hypertension; F17.200 Nicotine dependence, unspecified, uncomplicated; W01.0XXA Fall on same level from slipping, tripping and stumbling without subsequent striking against object, initial encounter
CPT/HCPCS: 71010-PO; 73030-PO

== ENCOUNTER 2016-11-18 17:55 | Emergency (ER) | payer OTHER, MEDICAID ==
[2016-11-18 18:07] VITALS: RESP 16
[2016-11-18] MEDS ORDERED: SULFAMETHOX/TMP 800/160 MG 1 TAB PO ONE (18:31)
--- NOTE | 2016-11-18 18:31 | EDPHY ---
H & P Time Seen by Provider: 11/18/16 18:17 HPI/ROS: CHIEF COMPLAINT: Left elbow redness and pain HISTORY OF PRESENT ILLNESS: Patient thinks she got bit by an insect about a week ago. She has had redness and swelling on the proximal forearm just distal to the olecranon process for the last 48 hours. Redness is mild and pain is mild. Worse with palpation but not affected by extension or flexion of the elbow. No weakness or numbness in the hand and no fever or chills. No red streaking up the arms. Not itchy. REVIEW OF SYSTEMS: Right arm is in a sling with a recent injury, possible rotator cuff PAST MEDICAL HISTORY: Type 2 diabetes. Coronary artery disease, peripheral vascular disease. Atrial fibrillation on Pradaxa, hypertension. Social history: Smoker General Appearance: Alert and conversant, cooperative. Patient has area of redness over the proximal forearm but distal to the elbow joint 2 x 4 cm in diameter. There is a central punctum. Tender to palpation and slightly warm to the touch but no fluctuance or eschar or blisters. No lymphangitis and no axillary lymphadenopathy. Normal range of motion of the left shoulder and full extension and flexion of the left elbow. There is no fluid in her olecranon bursa and that part of her anatomy is nontender. Normal radial pulse and normal motor and sensory in left hand Emergency Department course/MDM: Patient would like to try oral and not IV antibiotics which I think is reasonable. Although she has diabetes, she has a localized infection that does not appear to be in the joint, no systemic signs or symptoms, not afebrile. She does not have proximal spread. Oral clindamycin and Bactrim to treat both gram-positive and staph and strep, chosen because of her multiple allergies. I think septic joint or fasciitis or abscess are all unlikely at this time. Smoking Status: Current every day smoker Constitutional: Initial Vital Signs Temperature (C) 37.1 C 11/18/16 18:04 Heart Rate 79 11/18/16 18:04 Respiratory Rate 16 11/18/16 18:04 Blood Pressure 172/76 H 11/18/16 18:04 O2 Sat (%) 95 11/18/16 18:04 O2 Delivery Mode Room Air Allergies/Adverse Reactions: azithromycin Allergy (Verified 11/18/16 18:07) cephalexin monohydrate [From Keflex] Allergy (Verified 11/18/16 18:07) Abdominal Pain ciprofloxacin [From Cipro] Allergy (Verified 11/18/16 18:07) ciprofloxacin HCl [From Cipro] Allergy (Verified 11/18/16 18:07) metformin Allergy (Verified 11/18/16 18:07) Diarrhea morphine Allergy (Verified 11/18/16 18:07) Other-Enter Comments Home Medications: Medication Instructions Recorded Nebivolol HCl [Bystolic 10 mg] 10 mg PO DAILY 12/29/11 PARoxetine HCL [Paxil 20mg (*)] 40 mg PO HS 12/29/11 Cholecalciferol Vit D3 [Vitamin D3 5,000 units PO DAILY 05/08/16 (*)] Dabigatran Etexilate Mesyl 150 mg PO BID #60 cap 07/31/16 [Pradaxa 150 MG (*)] Clindamycin HCl [Clindamycin] 300 mg PO TID #21 cap 11/18/16 Sulfamethox/Tmp 800/160 mg 1 tab PO BID@1000,2200 #20 tab 11/18/16 [Bactrim Ds] MDM/Departure - Depart Disposition: Home, Routine, Self-Care Clinical Impression: Cellulitis of right elbow Condition: Good Instructions: Cellulitis (ED) Prescriptions: Clindamycin HCl [Clindamycin] 300 mg PO TID #21 cap Sulfamethox/Tmp 800/160 mg [Bactrim Ds] 1 tab PO BID@1000,2200 #20 tab Referrals: Brooke Freitas MD [Primary Care Provider] - 2-3 days, if not improved
[2016-11-18] MEDS ORDERED: CLINDAMYCIN 150MG PREPACK#6 BTL TAKEHOME ONE (18:32)
[2016-11-18 18:56] VITALS: BP 177/81; PULSE 76; TEMP 98.6; O2SAT 92
== END 2016-11-18 18:54 | disposition home or self-care (01) ==
LOC: CED 17:55
DX: L03.113 Cellulitis of right upper limb (principal); F17.200 Nicotine dependence, unspecified, uncomplicated; E11.9 Type 2 diabetes mellitus without complications; I25.10 Atherosclerotic heart disease of native coronary artery without angina pectoris; I10 Essential (primary) hypertension

== ENCOUNTER 2016-12-11 13:49 | Outpatient (CLI) | payer OTHER, MEDICAID ==
[2016-12-11] MEDS ORDERED: NS 1,000 ML IV SCH (14:45)
[2016-12-11] MEDS ORDERED: FLUMAZENIL 0.5 MG/5 ML MDV IVP ONE (15:48)
[2016-12-11] MEDS ORDERED: MIDAZOLAM 2 MG/2 ML VIAL ONE (15:48)
[2016-12-11] MEDS ORDERED: fentaNYL 100 MCG/2 ML INJ ONE (15:48)
[2016-12-11] MEDS ORDERED: NALOXONE HCL 0.4 MG/ML INJ ONE (15:48)
[2016-12-11 19:03] VITALS: BP 195/83; O2SAT 96
== END 2016-12-11 19:04 | disposition home or self-care (01) ==
LOC: FIMAGING 13:49
PROVIDERS: ATTEND Physician Assistant
DX: S46.011A Strain of muscle(s) and tendon(s) of the rotator cuff of right shoulder, initial encounter (principal); S43.491A Other sprain of right shoulder joint, initial encounter
CPT/HCPCS: 73221; J2250; J3010; J2310

== ENCOUNTER 2017-03-22 14:35 | Observation (INO) | payer OTHER ==
[2017-03-22] MEDS ORDERED: ASPIRIN 81 MG CHEWABLE TAB PO ONE (14:54)
[2017-03-22] MEDS ORDERED: NS 500 ML IV ONE (14:54)
[2017-03-22 15:02] LABS: % IMMATURE GRANULYOCYTES 0.4 % (0.0-1.1); ABSOLUTE IMMATURE GRANULOCYTES 0.04 10^3/uL (0.00-0.10); ADD DIFF? NO; ADD MORPH? NO; ADD SCAN? NO; ATYPICAL LYMPHOCYTE FLAG 0 (0-99); FRAGMENT RBC FLAG 0 (0-99); HEMATOCRIT 48.1 % (38.0-47.0); HEMOGLOBIN 16.9 g/dL (12.6-16.3); LEFT SHIFT FLG 0 (0-99); LIPEMIA HEMOLYSIS FLAG 90 (0-99); MEAN CELL HEMOGLOBIN 31.1 pg (27.9-34.1); MEAN CELL HEMOGLOBIN CONCENTR. 35.1 g/dL (32.4-36.7); MEAN CELL VOLUME 88.6 fL (81.5-99.8); MEAN PLATELET VOLUME 9.4 fL (8.7-11.7); PLATELET CLUMPS FLAG 0 (0-99); PLATELET COUNT 267 10^3/uL (150-400); RED BLOOD CELL COUNT 5.43 10^6/uL (4.18-5.33); RED CELL DISTRIBUTION WIDTH 13.1 % (11.5-15.2)
[2017-03-22] MEDS ORDERED: DILTIAZEM 25 MG/5 ML VIAL IVP ONE (15:04)
--- NOTE | 2017-03-22 15:05 | EDPHY ---
H & P Stated Complaint: 0830 PT. States lightheaded,unsteady and dizzy,sob,cp,a-fib HPI/ROS: HPI CHIEF COMPLAINT: Chest pressure, lightheadedness, dizziness, nausea HISTORY OF PRESENT ILLNESS: This patient very pleasant 67-year-old female she has significant past medical history for hypertension, hyperlipidemia, AFib, vascular disease, denies having history of stroke or heart attack, she presents emergency room with feeling lightheaded and pressure in her chest since 830 this morning. A Band across her chest. It is now 3 o'clock in the afternoon. She decided come to the emergency room as she has been feeling worse in terms of lightheadedness. She states it is worse when she goes to get up. Upon arrival to the emergency room the patient's heart rate is in the 150s. AFib. She states that she is in AFib all the time. But is unsure how fast heart rate usually runs. Patient's current complaint lightheadedness. Chest pressure. She denies pain radiating to her jaw neck back denies focal weakness numbness or tingling. Denies room spinning. Past Medical History: CAD s/p PCI, Tobacco use (1ppd), PAD, DM, Hypertension, hyperlipidemia, vascular disease, AFib, stents in her right leg. Neuropathy. ? COPD No O2 Requirement. Past Surgical History: Multiple stents in right leg. Social History: Denies daily use of alcohol or drugs. She smokes tobacco daily. Additionally reports taking CBD Oil. Family History: . Director Energy: Dr. Goff/Michel. Primary Care Doctor: Dr. Anders PHILIP REVIEW OF SYSTEMS: A comprehensive 10 point review of systems is otherwise negative aside from elements mentioned in the history of present illness. Exam Constitutional Appears well non-toxic. triage nursing summary reviewed, vital signs reviewed, awake/alert. Vital signs noted: tachycardic. Eyes normal conjunctivae and sclera, EOMI, PERRLA. HENT normal inspection, atraumatic, moist mucus membranes, no epistaxis, neck supple/ no meningismus, no raccoon eyes. Respiratory clear to auscultation bilaterally, normal breath sounds, no respiratory distress, no wheezing. Cardiovascular irregular, irregular rhythm, no murmur, no edema, distal pulses normal. Gastrointestinal soft, non-tender, no rebound, no guarding, normal bowel sounds, no distension, no pulsatile mass. Genitourinary no CVA tenderness. Musculoskeletal no midline vertebral tenderness, full range of motion, no calf swelling, no tenderness of extremities, no meningismus, good pulses, neurovascularly intact. Skin pink, warm, & dry, no rash, skin atraumatic. Neurologic awake, alert and oriented x 3, AAOx3, moves all 4 extremities equally, motor intact, sensory intact, CN II-XII intact, normal cerebellar, normal vision, normal speech. Psychiatric normal mood/affect. Heme/Lymph/Immune no lymphadenopathy. Differential Diagnosis: Includes but is not limited to in a particular order acute coronary syndrome, acute MN, non STEMI, demand ischemia, AFib with RVR, aortic dissection, AAA. Medical Decision Making: Plan for this patient IV establishment full school bus monitor, obtain EKG, rule out ACS, full-dose aspirin, gentle IV fluid hydration , diltiazem IV fluid bolus of 15 mg for rate control, may need diltiazem drip. Re-evaluation: EKG interpretation by me on record in [employer] system. Impression time of EKG 1443, this is AFib rate of 163. Motion artifact noted. PVC present. I do not appreciate acute ST elevation. Cardiac Risk Factors: Coronary artery disease, diabetes, hypertension, hyperlipidemia, vascular disease, ongoing tobacco use, Age HEART SCORE: 6.0 1535: Patient's heart rate down to 112 with a diltiazem bolus of 15mg. She will be started on Dilt drip. Heart rate runs from 106-120s. She will be started on diltiazem drip for better rate control. Given her risk factors, discomfort in her chest, AFib with RVR should be admitted over a [facility] for observation overnight rule out further cardiac disease. Her initial troponins negative. I have reviewed her chest x-ray do not appreciate acute cardiopulmonary disease. No evidence of failure. She does not have any shortness of breath or pleuritic pain. She describes a pressure sensation in her chest bandlike across her chest. Now improved after IV diltiazem. She did receive full-dose aspirin. 1540: Spoke with the hospitalist service Dr. Clement. Agrees to admit this patient observation. AFib with RVR chest pressure. No evidence of acute coronary syndrome here in the emergency room. 1553: Repeat EKG. Repeat EKG time 3:44 p.m.. This is AFib rate of 124. I do not appreciate acute ischemia. Specifically no ST elevation. No ST depression. No significant T-wave abnormalities. 1714: Patient agrees to transfer from [facility] ER to [facility] PCU for Chest Pressure and A fib observation. EMTALA filled out. Appropriate Transfer will be set up. Source: Patient - Personal History Tetanus Vaccine Date: 2009 - Medical/Surgical History Hx Asthma: No Hx Chronic Respiratory Disease: No Hx Diabetes: Yes Hx Cardiac Disease: Yes Hx Renal Disease: No Hx Cirrhosis: No Hx Alcoholism: No Hx HIV/AIDS: No Hx Splenectomy or Spleen Trauma: No Other PMH: cad, pvd, smoker, HTN, diabetes, bilateral femerol stents, A-FIB - Social History Smoking Status: Heavy smoker Constitutional: Initial Vital Signs Temperature (C) 36.5 C 03/22/17 14:40 Heart Rate 150 H 03/22/17 14:40 Respiratory Rate 22 H 03/22/17 14:40 Blood Pressure 130/90 H 03/22/17 14:40 O2 Sat (%) 97 03/22/17 14:40 O2 Delivery Mode Room Air Allergies/Adverse Reactions: azithromycin Allergy (Verified 03/22/17 14:42) cephalexin monohydrate [From Keflex] Allergy (Verified 03/22/17 14:42) Abdominal Pain ciprofloxacin [From Cipro] Allergy (Verified 03/22/17 14:42) ciprofloxacin HCl [From Cipro] Allergy (Verified 03/22/17 14:42) metformin Allergy (Verified 03/22/17 14:42) Diarrhea morphine Allergy (Verified 03/22/17 14:42) Other-Enter Comments Home Medications: Medication Instructions Recorded Nebivolol HCl [Bystolic 10 mg] 10 mg PO DAILY 12/29/11 Dabigatran Etexilate Mesyl 150 mg PO BID #60 cap 07/31/16 [Pradaxa 150 MG (*)] Bd Ultra-Fine Pen Needle 03/22/17 Clopidogrel Bisulfate [Clopidogrel] 03/22/17 Medical Decision Making - Diagnostics Imaging Results: Imaging Impressions Chest X-Ray 03/22/17 14:54 Impression: 1. Bronchitis/airways disease. 2. No definite pneumonia, pleural effusion or pneumothorax. - Data Points Laboratory Results: Laboratory Results 03/22/17 14:46 03/22/17 14:46 03/22/17 03/22/17 03/22/17 15:30 14:46 14:46 WBC RBC Hgb Hct MCV MCH MCHC RDW Plt Count MPV Neut % (Auto) Lymph % (Auto) [place] % (Auto) Eos % (Auto) Baso % (Auto) Nucleat RBC Rel Count Absolute Neuts (auto) Absolute Lymphs (auto) Absolute Monos (auto) Absolute Eos (auto) Absolute Basos (auto) Absolute Nucleated RBC Immature Gran % Immature Gran # PT 14.1 SEC SEC (12.0-15.0) INR 1.10 (0.83-1.16) APTT 38.4 SEC H SEC (23.0-38.0) Sodium 141 mEq/L mEq/L (134-144) Potassium 3.8 mEq/L mEq/L (3.3-5.0) Chloride 99 mEq/L mEq/L (97-110) Carbon Dioxide 23 mEq/l mEq/l (22-31) Anion Gap 19 mEq/L H mEq/L (8-16) BUN 11 mg/dL mg/dL (7-23) Creatinine 0.8 mg/dL mg/dL (0.6-1.0) Estimated GFR > 60 Glucose 265 mg/dL H mg/dL (70-100) Calcium 9.4 mg/dL mg/dL (8.5-10.4) Magnesium 1.8 mg/dL mg/dL (1.6-2.3) Total Bilirubin 0.4 mg/dL mg/dL (0.1-1.4) Conjugated Bilirubin 0.0 mg/dL mg/dL (0.0-0.5) Unconjugated Bilirubin 0.4 mg/dL mg/dL (0.0-1.1) AST 17 IU/L IU/L (14-46) ALT 19 IU/L IU/L (9-52) Alkaline Phosphatase 81 IU/L IU/L (38-126) Creatine Kinase 34 IU/L IU/L (0-156) CK-MB (CK-2) Fraction 1.38 ng/mL ng/mL (0.00-4.55) Troponin I < 0.012 ng/mL ng/mL Cancelled (0.000-0.034) NT-Pro-B Natriuret Pep 119 pg/mL pg/mL (0-125) Total Protein 7.5 g/dL g/dL (6.3-8.2) Albumin 4.5 g/dL g/dL (3.5-5.0) Lipase 80 IU/L IU/L (23-300) TSH 0.654 uIU/mL uIU/mL (0.465-4.680) 03/22/17 03/22/17 14:46 14:46 WBC 9.00 10^3/uL 10^3/uL (3.80-9.50) RBC 5.43 10^6/uL H 10^6/uL (4.18-5.33) Hgb 16.9 g/dL H g/dL (12.6-16.3) Hct 48.1 % H % (38.0-47.0) MCV 88.6 fL fL (81.5-99.8) MCH 31.1 pg pg (27.9-34.1) MCHC 35.1 g/dL g/dL (32.4-36.7) RDW 13.1 % % (11.5-15.2) Plt Count 267 10^3/uL 10^3/uL (150-400) MPV 9.4 fL fL (8.7-11.7) Neut % (Auto) 54.2 % % (39.3-74.2) Lymph % (Auto) 35.3 % % (15.0-45.0) [place] % (Auto) 6.8 % % (4.5-13.0) Eos % (Auto) 2.6 % % (0.6-7.6) Baso % (Auto) 0.7 % % (0.3-1.7) Nucleat RBC Rel Count 0.0 % % (0.0-0.2) Absolute Neuts (auto) 4.88 10^3/uL 10^3/uL (1.70-6.50) Absolute Lymphs (auto) 3.18 10^3/uL H 10^3/uL (1.00-3.00) Absolute Monos (auto) 0.61 10^3/uL 10^3/uL (0.30-0.80) Absolute Eos (auto) 0.23 10^3/uL 10^3/uL (0.03-0.40) Absolute Basos (auto) 0.06 10^3/uL 10^3/uL (0.02-0.10) Absolute Nucleated RBC 0.00 10^3/uL 10^3/uL (0-0.01) Immature Gran % 0.4 % % (0.0-1.1) Immature Gran # 0.04 10^3/uL 10^3/uL (0.00-0.10) PT REJ INR REJ APTT REJ Sodium Potassium Chloride Carbon Dioxide Anion Gap BUN Creatinine Estimated GFR Glucose Calcium Magnesium Total Bilirubin Conjugated Bilirubin Unconjugated Bilirubin AST ALT Alkaline Phosphatase Creatine Kinase CK-MB (CK-2) Fraction Troponin I NT-Pro-B Natriuret Pep Total Protein Albumin Lipase TSH Medications Given: Discontinued Medications Aspirin (Aspirin) 324 mg PO EDNOW ONE Stop: 03/22/17 14:55 Last Admin: 03/22/17 15:01 Dose: 324 mg Diltiazem HCl (Cardizem 25 Mg/5 Ml Vial) 15 mg IVP EDNOW ONE Stop: 03/22/17 15:05 Last Admin: 03/22/17 15:09 Dose: 5 mg Sodium Chloride (Ns) 500 mls @ 1,000 mls/hr IV EDNOW ONE PRN Reason: Protocol Stop: 03/22/17 15:23 Last Admin: 03/22/17 15:00 Dose: 500 mls Sodium Chloride (Ns) 1,000 mls @ 0 mls/hr IV ONCE ONE PRN Reason: Wide Open Stop: 03/22/17 15:12 Last Admin: 03/22/17 15:51 Dose: 1,000 mls Diltiazem HCl 125 mg/ Dextrose 125 mls @ 0 mls/hr IV EDNOW ONE; As Directed PRN Reason: Protocol Stop: 03/22/17 15:12 Last Admin: 03/22/17 15:49 Dose: 125 mls Lorazepam (Ativan Injection) 0.5 mg IVP EDNOW ONE Stop: 03/22/17 16:13 Last Admin: 03/22/17 16:17 Dose: 0.5 mg Departure - Departure Disposition: [facility] Acute Clinical Impression: Chest pressure, Atrial fibrillation with RVR Condition: Fair
[2017-03-22] MEDS ORDERED: DILTIAZEM 125 MG in D5W 125 ML IV ONE (15:11)
[2017-03-22] MEDS ORDERED: NS 1,000 ML IV ONE (15:11)
[2017-03-22 15:20] LABS: ALANINE AMINOTRANSFERASE 19 IU/L (9-52); ALBUMIN 4.5 g/dL (3.5-5.0); ALKALINE PHOSPHATASE 81 IU/L (38-126); ANION GAP 19 mEq/L (8-16); ASPARTATE AMINOTRANSFERASE 17 IU/L (14-46); BILIRUBIN,TOTAL 0.4 mg/dL (0.1-1.4); BILIRUBIN-UNCONJUGATED 0.4 mg/dL (0.0-1.1); CALCIUM 9.4 mg/dL (8.5-10.4); CARBON DIOXIDE 23 mEq/l (22-31); CHLORIDE 99 mEq/L (97-110); CREATININE 0.8 mg/dL (0.6-1.0); GLOMERULAR FILTRATION RATE > 60; GLUCOSE 265 mg/dL (70-100); MAGNESIUM 1.8 mg/dL (1.6-2.3); SODIUM 141 mEq/L (134-144); TOTAL PROTEIN 7.5 g/dL (6.3-8.2)
[2017-03-22 15:23] LABS: POTASSIUM 3.8 mEq/L (3.3-5.0)
[2017-03-22] MEDS ORDERED: DILTIAZEM 125 MG/25 ML VIAL IV ONE (15:28)
[2017-03-22 15:46] LABS: INR 1.1 (0.83-1.16); PROTIME(PATIENT) 14.1 SEC (12.0-15.0)
--- NOTE | 2017-03-22 15:46 | CPEKG ---
Heart Rate: 124 RR Interval: 484 QRSD Interval: 78 QT Interval: 348 QTC Interval: 500 QRS [place]: 69 T Wave [place]: 27 EKG Severity - ABNORMAL ECG - EKG Impression: ATRIAL FIBRILLATION, V-RATE 87-155 EKG Impression: BORDERLINE PROLONGED QT INTERVAL Electronically Signed By: Otoniel Gabriel 24-Mar-2017 13:23:48
[2017-03-22 15:47] LABS: APTT 38.4 SEC (23.0-38.0)
[2017-03-22 15:56] LABS: CREATINE KINASE-MB FRACTION 1.38 ng/mL (0.00-4.55)
[2017-03-22] MEDS ORDERED: LORazepam 2 MG/ML INJ IVP ONE (16:12)
[2017-03-22] MEDS ORDERED: ACETAMINOPHEN 325 MG TAB PO PRN (18:37)
[2017-03-22] MEDS ORDERED: ONDANSETRON 4 MG/2 ML VIAL IVP PRN (18:37)
[2017-03-22] MEDS ORDERED: ONDANSETRON DISINTEGRATING 4 MG TAB PO PRN (18:37)
[2017-03-22] MEDS ORDERED: D50W 25 GM/50 ML SYR IVP PRN (18:53)
[2017-03-22] MEDS: METOPROLOL TARTRATE 50 MG TAB PO SCH (20:01)
[2017-03-22] MEDS: NICOTINE 21 MG/24 HR PATCH TD SCH (20:01)
--- NOTE | 2017-03-22 20:02 | GHP ---
[f rep st] HISTORY AND PHYSICAL DATE OF ADMISSION: 03/22/2017 CHIEF COMPLAINT: Chest pain and heart palpitations. HISTORY OF PRESENT ILLNESS: Ms. Bartholomew is a 67-year-old female with a history of coronary artery disease, atrial fibrillation, peripheral vascular disease, diabetes, and COPD, who presents to the emergency department with chest pressure and heart palpitations. She states the onset was this morning while she was having coffee with breakfast. She felt a fluttering in her chest with an irregular heart rhythm and felt pressure which is similar to prior episodes of atrial fibrillation. She has been cardioverted in the past. She has most recently been managed on Bystolic and Pradaxa for stroke prevention. However, she stopped taking her Bystolic because she is unable to afford this medication. She denied associated shortness of breath and does not experience orthopnea or paroxysmal nocturnal dyspnea. She describes a history of peripheral vascular disease with stents in her lower extremities. She notes that her earlier this year and she has become more hopeless about living. She continues to smoke 1 pack of cigarettes per day. Upon arrival to the emergency department, she was found to be in rapid atrial fibrillation with a heart rate of 150. Her initial troponin was negative. She was given IV diltiazem bolus and started on a drip and transferred to the [facility] for admission and further management. PAST MEDICAL HISTORY: 1. Coronary artery disease, status post PCI. 2. Peripheral vascular disease, status post right iliac stenting. 3. Diabetes mellitus type 2. 4. Hypertension. 5. Hyperlipidemia. 6. Chronic atrial fibrillation. 7. Peripheral neuropathy. 8. Chronic obstructive pulmonary disease. 9. Chronic anticoagulation. MEDICATIONS: Please see [facility] for updated outpatient medication list. ALLERGIES: Azithromycin, cephalexin, ciprofloxacin, metformin, and morphine. FAMILY HISTORY: Reviewed and noncontributory. SOCIAL HISTORY: The patient's recently . Her son now lives with her. She continues to smoke 1 pack cigarettes per day. She reports rare alcohol use. She uses CBD oil for peripheral neuropathy pain. No other illicit drugs. REVIEW OF SYSTEMS: A 10-point review of systems was performed and is negative as per HPI. OBJECTIVE: VITAL SIGNS: Temperature 36.5, blood pressure 120/65, heart rate 80 , respiratory rate 20, she is 95% on room air. GENERAL: Patient is awake, alert , oriented, in no acute distress. HEENT: Head is atraumatic, normocephalic. Pupils equal, round, react to light extraocular intact. Oropharynx clear. Mucous members are moist. NECK: Supple, no JVD/ HEART: Irregularly irregular rhythm with no murmur. LUNGS: Clear auscultation bilaterally. ABDOMEN: Soft , nondistended, nontender with normoactive bowel sounds. EXTREMITIES: Without cyanosis, clubbing, or edema, are warm, well perfused. NEUROLOGIC: Grossly nonfocal. LABORATORY DATA: CBC reveals a normal white count, hemoglobin 16.9, normal platelets. INR is 1.1. Complete metabolic panel reveals normal electrolytes, blood sugar of 265, normal LFTs. Troponin is negative. NT-proBNP is 119. Lipase is normal. TSH is normal at 0.654. EKG upon arrival to the emergency department showed atrial fibrillation with rapid ventricular rate of 124. There is no ST-segment or T-wave changes concerning for ischemia. Chest x-ray is personally reviewed and interpreted. There is evidence of peribronchial thickening, but no acute pulmonary edema, consolidation or effusion. ASSESSMENT AND PLAN: Ms. Bartholomew is a 67-year-old female with history of coronary artery disease, type 2 diabetes, peripheral vascular disease, hypertension and atrial fibrillation who presents to the emergency department with chest pain and rapid atrial fibrillation. 1. Paroxysmal atrial fibrillation with rapid ventricular rate. This occurred because the patient stopped her Bystolic due to cost. Will change to a more affordable beta-ismael, metoprolol. She is currently on an IV diltiazem drip with heart rate in the 80s. Will wean this and initiate oral metoprolol 50 mg p.o. twice daily. This will likely need to be up titrated. CHADS-VASc score is 5. Continue Pradaxa for stroke prevention. She is receiving samples of Pradaxa. It would be more affordable for her to change back to Coumadin and she can discuss this with her billet recorder, Dr. Goff. Will make her n.p.o. after midnight in case she warrants cardioversion. Cardiology is consulted and will see pt in am. 2. Chest pain with history of CAD and prior PCI. CP occurred in the setting of rapid A fib and is resolved. Her initial troponin is negative. EKG non- ischemic. Will trend troponins. Her last angiogram was September 2014, by Dr. Pearson, at which time she had an occlusion of the mid left anterior descending stent with excellent collaterals. I requested Cardiology consultation to weigh in on risk stratification. Check a lipid panel in the morning and consider initiation of statin. Continue Plavix. 3. Peripheral vascular disease with right lower extremity stent. Continue Plavix and Pradaxa as above. 4. Hypertension. She is normotensive on diltiazem drip as above. Transition to oral metoprolol. 5. Question chronic obstructive pulmonary disease. Her respiratory status is stable. She does not use any inhalers at home. Recommend outpatient PFTs. 6. Type 2 diabetes mellitus. Presenting blood sugar is 265. Her last A1c was 10.1. Will recheck her A1c, continue Lantus and add SSI. Metformin causes diarrhea. 7. Tobacco abuse. The patient is pre-contemplative regarding cessation and now that her is she does not feel she has anything to live for and therefore has no desire to quit smoking. Nicoderm patch 21 mg daily is ordered. 8. Grief reaction. The patient notes hopelessness and depression after the loss of her . Support is provided. She has an outpatient grief counselor whom she follows with and actually saw today. 9. Code status. Patient is full code. DISPOSITION: PCU observation. /[id number]/MODL MTDD
[2017-03-22] MEDS: DABIGATRAN ETEXILATE MESYL 150 MG CAP PO SCH (20:44)
[2017-03-22 20:47] LABS: TROPONIN I 0.035 ng/mL (0.000-0.034)
[2017-03-22 20:58] LABS: HEMOGLOBIN A1C 8.8 % (4.0-6.0)
[2017-03-22] MEDS ORDERED: traZODone 50 MG TAB PO PRN (21:05)
[2017-03-22] MEDS ORDERED: PARoxetine HCL 20 MG TAB PO SCH (21:15)
[2017-03-22] MEDS ORDERED: INSULIN GLARGINE 100 UNITS/ML SYRINGE SC SCH (21:45)
[2017-03-23 04:27] LABS: CHOLESTEROL 184 mg/dL (140-220); CHOLESTEROL/HDL RATIO 5.41 RATIO (1.00-4.44); HIGH DENSITY LIPOPROTEIN 34 mg/dL (40-85); LDL/HDL RATIO 2.85 RATIO (1.00-3.22); LOW DENSITY LIPOPROTEIN 97 mg/dL (80-100); NON-HIGH DENSITY LIPOPROTEIN 150 mg/dL (90-129); TRIGLYCERIDE 267 mg/dL (35-135); VERY LOW DENSITY LIPOPROTEINS 53 mg/dL (8-25)
[2017-03-23 07:21] VITALS: O2SAT 92
[2017-03-23] MEDS: INSULIN LISPRO 100 UNIT/ML SC SCH ×2 (07:56→12:10)
[2017-03-23] MEDS: DABIGATRAN ETEXILATE MESYL 150 MG CAP PO SCH (08:01)
[2017-03-23] MEDS: METOPROLOL TARTRATE 50 MG TAB PO SCH (08:02)
[2017-03-23] MEDS: NICOTINE 21 MG/24 HR PATCH TD SCH (08:02)
[2017-03-23] MEDS ORDERED: CLOPIDOGREL BISULFATE 75 MG TAB PO SCH (09:00)
[2017-03-23 11:11] VITALS: BP 109/85; PULSE 67; RESP 12; TEMP 98
[2017-03-23] MEDS ORDERED: FLU VACC QS 2017-18 (3YR+)/PF 0.5 ML SYR (FLUARIX QUAD) IM ONE (12:13)
--- NOTE | 2017-03-23 12:18 | CPEKG ---
Heart Rate: 69 RR Interval: 870 P-R Interval: 132 QRSD Interval: 78 QT Interval: 432 QTC Interval: 463 P Hastings: 28 QRS Hastings: 76 T Wave Hastings: 79 EKG Severity - OTHERWISE NORMAL ECG - EKG Impression: SINUS RHYTHM EKG Impression: ATRIAL PREMATURE COMPLEX Electronically Signed By: Otoniel Gabriel 24-Mar-2017 13:23:38
--- NOTE | 2017-03-23 13:54 | GCON ---
[f rep st] CONSULTATION CARDIAC CONSULTATION DATE OF CONSULTATION: 03/23/2017 CHIEF COMPLAINT: Palpitations and chest pain. HISTORY OF PRESENT ILLNESS: The patient is a 67-year-old female with a history of coronary artery disease and prior stenting, hypertension, peripheral vascular disease with bilateral interventions, hyperlipidemia, ongoing tobacco use, diabetes and paroxysmal atrial fibrillation; typically followed by Dr. Roscoe Goff. She was admitted to the hospital with chest pain and palpitations, and found to be in atrial fibrillation with rapid ventricular rates. The patient has a history of noncompliance with medical therapy. She is now getting her Bystolic and Pradaxa from the [facility]. If they do not have samples, she just does not take her medication. She ran out of Bystolic 3 weeks ago but has been on Pradaxa. Yesterday morning, she developed palpitations followed by chest pressure. This was similar but not exactly like her prior episodes of atrial fibrillation. She presented to the emergency room , was found to be in atrial fibrillation with rapid ventricular rates at 150 beats per minute. She was given a diltiazem bolus, and then started on a diltiazem drip. She converted to sinus rhythm yesterday evening. She currently denies any further chest discomfort. Her initial troponin was negative. Followup troponin was mildly elevated at 0.035. She denies any further chest discomfort. She has a history of coronary artery disease with her most recent angiogram on October 19, 2014, by Dr. Addi Pearson. At that time, she was found to have preserved LV function with an ejection fraction of 60%. The left main had mild plaque. The left anterior descending artery was totally occluded at the midportion with excellent [id number] collaterals. The right coronary artery and left circumflex artery had mild disease. No intervention was done at that time. PAST MEDICAL HISTORY: COPD, hypertension, peripheral vascular disease with prior stenting. Hyperlipidemia. Paroxysmal atrial fibrillation. Diabetes. Coronary artery disease with prior PCI. SOCIAL HISTORY: Her approximately a year ago. She has been depressed since that time. She is currently smoking a pack of cigarettes a day. She denies any routine cardiovascular exercise. She does walk with her grandson on occasion and denies any exertional chest discomfort. HOME MEDICATIONS: Pradaxa 150 mg twice daily, Plavix 75 mg daily. Paxil 40 mg at bedtime. Insulin 12 units subcu at bedtime. Ibuprofen p.r.n. for pain. Herbal supplement daily. Bystolic 20 mg daily, which she ran out of 3 weeks ago. ALLERGIES: Please see med list. She is allergic to Cipro, cephalexin, azithromycin. PHYSICAL EXAMINATION: GENERAL: Patient appears in no acute distress. VITAL SIGNS: Blood pressure 109/85, heart rate 67, oxygen saturation of 92% on room air. Afebrile. NECK: No carotid bruits or JVD present. LUNGS: Clear to auscultation. No wheezes, rhonchi, or crackles auscultated. CARDIAC: Regular rate and rhythm without any murmurs, rubs, or gallops appreciated. ABDOMEN: Soft, nontender, nondistended. EXTREMITIES: Palpable pulses bilaterally without any evidence of edema. NEUROLOGIC: Nonfocal. PSYCHIATRIC: Mood and affect appropriate. SKIN: No obvious rashes or ecchymosis identified. DIAGNOSTIC STUDIES: Initial EKG showed atrial fibrillation at a rate of 124 beats per minute. Repeat EKG showed normal sinus rhythm with a PAC. Chest x- ray was negative for acute cardiopulmonary disease. LABORATORY: Troponin negative, 0.035. Hemoglobin A1c 8.8. Triglycerides 267, LDL 97, HDL 34. TSH 0.654. BUN 11, creatinine 0.8. ASSESSMENT: The patient is a 67-year-old female with complicated cardiac history including coronary artery disease, peripheral vascular disease, hypertension, hyperlipidemia, diabetes and paroxysmal atrial fibrillation. Admitted with atrial fibrillation with a rapid ventricular rate and chest pain. PLAN: The patient has been noncompliant with her medical therapy. She has been off her Bystolic for at least 3 weeks and comes in, in atrial fibrillation with rapid ventricular response. She converted to normal sinus rhythm with diltiazem. She has been noncompliant with her medical therapy; if she is unable to get it, she just does not take it. She cannot afford her current therapy. We discussed alternative options including discontinuing Bystolic and beginning metoprolol. She is interested in this change and was started on 50 mg twice daily. I suspect she will need more like 100 mg twice a day and maybe even 200 mg twice a day for blood pressure control. She is currently taking Pradaxa 150 mg twice daily. She does have enough of the medication to get her through the next 20 days. She has a consultation with a new PCP on April 06. We discussed switching her from Pradaxa to Coumadin, but she is concerned that she will not be able to follow up regularly for INR checks. I have given her a free 30-day card for Eliquis in case she runs out of Pradaxa prior to her consultation on the . She will discuss this further with her new PCP and Roscoe Goff, whether or not she should make the transition from Pradaxa to Coumadin. She presented with chest discomfort and mildly elevated troponin. Her repeat EKG is negative for ischemia, and she is currently chest pain free. She has a known total occlusion to the mid LAD. Continue to monitor medically. Consider outpatient nuclear stress test. She is on aspirin therapy as well as beta ismael therapy. She is refusing statin therapy at this time. Smoking cessation discussed today. /[id number]/MODL MTDD
--- NOTE | 2017-03-23 14:27 | ASMTCASEMG ---
Living Arrangements What is your living Answers: With Child(elizabeth) arrangement? Who do you live with? Type Of Residence What kind of residence do Answers: House you live in? Discharge Plan Comments Coordination Status Comments Notes: Pt is a 67 y/o female admitted for chest pressure and afib with RVR. Pt has numerous psychosocial stressors (finance and recently passing away). Pt has a supportive therapist. Pt lives at home w/ her son who has a TBI. PT have been ordered and awaiting recommendations. Needs are undetermined at this time. CM to follow. Plan: TBD Date Signed: 03/23/2017 02:27 PM Electronically Signed By:NEIL Hussein
--- NOTE | 2017-03-23 14:53 | HOSPPROG ---
Hospitalist Progress Note Assessment/Plan: 67 yo F w AF a/w RVR converted meds refilled home see dc summary Subjective: converted Objective: Vital Signs Temp Pulse Resp BP Pulse Ox 36.7 C 67 12 109/85 H 92 03/23/17 11:07 03/23/17 11:07 03/23/17 11:07 03/23/17 11:07 03/23/17 11:07 03/22/17 03/23/17 03/24/17 05:59 05:59 05:59 Intake Total 1900 Output Total 500 Balance 1400 PT 14.1 SEC (12.0-15.0) 03/22/17 15:30 INR 1.10 (0.83-1.16) 03/22/17 15:30 - Physical Exam Constitutional: no apparent distress, not in pain Eyes: PERRL, anicteric sclera Ears, Nose, Mouth, Throat: moist mucous membranes, hearing normal Cardiovascular: regular rate and rhythym, no murmur, rub, or gallop Respiratory: no respiratory distress, no rales or rhonchi Gastrointestinal: normoactive bowel sounds, soft, non-tender abdomen Genitourinary: no bladder fullness, No gonzalez in urethra Skin: warm, normal color Musculoskeletal: full muscle strength, no muscle tenderness Neurologic: AAOx3 ICD10 Worksheet Patient Problems: Problems Problem Status Onset Atrial fibrillation with RVR Acute Chest pressure Acute Diabetes mellitus type 2 Active Atrial fibrillation Acute Coronary artery disease Acute Hyperlipidemia Acute Hypertension Acute Peripheral vascular disease Acute
--- NOTE | 2017-03-23 15:31 | GDS ---
[f rep st] DISCHARGE SUMMARY DISCHARGE DIAGNOSES: 1. Atrial fibrillation with rapid ventricular response in the setting of chronic atrial fibrillation . 2. Medication noncompliance secondary to inability to afford. 3. History of coronary disease with PCI. 4. Peripheral vascular disease with iliac stenting. 5. Tobacco use. 6. Type 2 diabetes. HISTORY OF PRESENT ILLNESS/HOSPITAL COURSE: Please see admission history and physical by Dr. Yolanda stearns. The patient presented with chest pressure and palpitations. She was found to be in rapid at rial fibrillation. She was placed on a diltiazem drip and converted. She had a mild troponin leak a nd probably warrants an outpatient stress test. Her hemoglobin A1c is improved from 10 to 8.8. She has stopped taking Bystolic because of cost. She was transferred to metoprolol tartrate. She is discharged home. The cardiology group has been giving her free cards for Pradaxa. She has in sulin. I have refilled her Paxil and clopidogrel. She does comment on hopelessness, given her difficult financial situation and the recent loss of her . She is not suicidal. /[id number]/MODL
--- NOTE | 2017-03-23 16:29 | ASDISCHSUM ---
Discharge Information Plan Status:Home with No Needs Medically Cleared to Leave:03/22/2017 Discharge Date:03/23/2017 03:40 PM CM D/C Disposition: ADT D/C Disposition:Home, Routine, Self-Care Projected Discharge Date:03/23/2017 12:00 AM Transportation at D/C: Discharge Delay Reason: Follow-Up Date:03/23/2017 12:00 AM Discharge Slot: Final Diagnosis: Placement Information Patient Contact Information Contact Name:NATHALY Relationship:Goyo Address: Work Phone: City: [facility][1] Phone: State/[place] Code: Email: Financial Information Financial Class: Primary Plan Desc:MEDICARE OUTPATIENT Primary Plan Number:[id number] Secondary Plan Desc:[employer] Secondary Plan Number:[id number] Assessment Information [facility] Initial CM Assessment Living Arrangements What is your living Answers: With Child(elizabeth) arrangement? Who do you live with? Type Of Residence What kind of residence do Answers: House you live in? Discharge Plan Comments Coordination Status Comments Notes: Pt is a 67 y/o female admitted for chest pressure and afib with RVR. Pt has numerous psychosocial stressors (finance and recently passing away). Pt has a supportive therapist. Pt lives at home w/ her son who has a TBI. PT have been ordered and awaiting recommendations. Needs are undetermined at this time. CM to follow. Plan: TBD Date Signed: 03/23/2017 02:27 PM Electronically Signed By:NEIL Hussein Intervention Information Intervention Type:*SHANNON-Signed Date of Service:03/23/2017 10:07 AM Patient Type:Observation Staff Member:Samantha Akhtar Hours: Discipline: Severity: Comment:
== END 2017-03-23 15:40 | disposition home or self-care (01) ==
LOC: CED 14:35 → CEDHOLD 15:39 → F2W 18:05
PROVIDERS: ADMIT Hospitalist; ATTEND Hospitalist
DX: I48.2 Chronic atrial fibrillation (principal); I73.9 Peripheral vascular disease, unspecified; E11.9 Type 2 diabetes mellitus without complications; I25.10 Atherosclerotic heart disease of native coronary artery without angina pectoris; I10 Essential (primary) hypertension; E78.5 Hyperlipidemia, unspecified; G62.9 Polyneuropathy, unspecified; F43.21 Adjustment disorder with depressed mood; J44.9 Chronic obstructive pulmonary disease, unspecified; Z95.820 Peripheral vascular angioplasty status with implants and grafts; Z91.120 Patient's intentional underdosing of medication regimen due to financial hardship; Z95.5 Presence of coronary angioplasty implant and graft; Z98.61 Coronary angioplasty status; Z72.0 Tobacco use; Z79.01 Long term (current) use of anticoagulants; Z79.02 Long term (current) use of antithrombotics/antiplatelets
CPT/HCPCS: 71010; 90686; 93005; 96361; 96365; 96375; 99285; G0008; G0378; J1815; J2060; 80048-PO; 80076-PO; 82550-PO; 82553-PO; 83690-PO; 83735-PO; 83880-PO; 84443-PO; 84484-PO; 85025-PO; 85610-PO; 85730-PO

== ENCOUNTER 2017-08-13 06:05 | Inpatient (IN) | payer OTHER ==
[~2017-08-13 06:05] MED LIST: VANCOMYCIN 1 GM in NS 250 ML IV ONE; VANCOMYCIN PHARMACY TO DOSE MISC ONE
[2017-08-13] MEDS ORDERED: LR 1,000 ML IV SCH (06:29)
[2017-08-13] MEDS ORDERED: ACETAMINOPHEN 500 MG TAB PO ONE (06:29)
--- NOTE | 2017-08-13 06:30 | PDHPUP ---
History & Physical Update H&P update statement: This history and physical update is based on an assessment of the patient which was completed after admission or registration (within 24 hours), but prior to the surgery/procedure. H&P update: no change in patient's condition since H&P completed
--- NOTE | 2017-08-13 06:32 | PDIAF ---
- Diagnosis Diagnosis: right shoulder arthritis Code Status: Full Code - Medication Management Discharge Medications: Medications to Continue on Transfer Herbals/Supplements -Info Only 1 ea PO DAILY 03/22/17 [Last Taken Unknown] Ibuprofen [Motrin (*)] 600 mg PO DAILY PRN 03/22/17 [Last Taken 03/22/17] Clopidogrel Bisulfate [Clopidogrel] 75 mg PO DAILY #30 tablet 03/23/17 [Last Taken Unknown] Metoprolol Tartrate 75 mg PO BID #60 tablet 03/23/17 [Last Taken Unknown] Paroxetine HCl 40 mg PO HS #30 tablet 03/23/17 [Last Taken Unknown] Lisinopril DAILY06 07/17/17 [Last Taken Unknown] Novolin N SQ BID 07/17/17 [Last Taken Unknown] Warfarin Sodium HS 07/17/17 [Last Taken Unknown] busPIRone BID 07/17/17 [Last Taken Unknown] Discharge Medications: Refer to the Discharge Home Medication list for PRN reason. - Orders Services needed: Physical Therapy Diet Recommendation: no restrictions on diet Diet Texture: Regular Texture Diet Activity/Weight Bearing Restrictions: sling at all times except pendulum rom. dressing change daily. may shower without bandage. no soaking. f/u at two weeks. seek attn for increasing redness, swelling, drainage or discharge. pendulum rom - Follow Up Care Current Providers and Referrals: ANDREY LOMAX [Other]
[2017-08-13] MEDS ORDERED: LR 1,000 ML IV ONE (06:33)
[2017-08-13] MEDS ORDERED: BUPIVACAINE/EPI 0.5% 30 ML SDV ONE (06:56)
[2017-08-13] MEDS ORDERED: POLYMYXIN B SULFATE 500,000 UNIT/10 ML SYR IRR ONE (06:57)
[2017-08-13] MEDS ORDERED: BACITRACIN 50,000 UNITS/10 ML SYR IRR ONE (06:57)
[2017-08-13] MEDS ORDERED: MIDAZOLAM 2 MG/2 ML VIAL ONE (07:09)
[2017-08-13] MEDS ORDERED: MIDAZOLAM 2 MG/2 ML VIAL IVP ONE (07:10)
--- NOTE | 2017-08-13 07:10 | PDANEPAE ---
ANE History of Present Illness r shoulder OA ANE Past Medical History - Cardiovascular History Hx Hypertension: Yes Hx Arrhythmias: Yes Hx Chest Pain: No Hx Coronary Artery / Peripheral Vascular Disease: Yes Hx CHF / Valvular Disease: No Hx Palpitations: Yes Cardiovascular History Comment: A-Fib - Pulmonary History Hx COPD: No Hx Asthma/Reactive Airway Disease: No Hx Recent Upper Respiratory Infection: No Hx Oxygen in Use at Home: No Hx Sleep Apnea: No Sleep Apnea Screening Result - Last Documented: Negative Pulmonary History Comment: PREV C-PAP USE LOST WEIGHT NOT USED FOR 2 YEARS. HEAD COLD MID JUNE 2017. RESIDUAL COUGH CLEAR PHLEM. "I don't know if I have COPD or not" - Neurologic History Hx Cerebrovascular Accident: No Hx Seizures: No Hx Dementia: No - Endocrine History Hx Diabetes: Yes Endocrine History Comment: IDDM - Renal History Hx Renal Disorders: No - Liver History Hx Hepatic Disorders: No - Neurological & Psychiatric Hx Hx Neurological and Psychiatric Disorders: Yes Neurological / Psychiatric History Comment: depression; anxiety; - Cancer History Hx Cancer: No - Congenital Disorder History Hx Congenital Disorders: No - GI History Hx Gastrointestinal Disorders: No - Other Health History Other Health History: FELL 09/2016 INJURING RT SHLDR. Tremors. PERIPHERAL NEUROPATHY. TOENAIL FUNGUS - Chronic Pain History Chronic Pain: Yes (r shoulder) - Surgical History Prior Surgeries: FEMORAL STENTS. HYSTERECTOMY ANE Review of Systems Review of Systems: - Exercise capacity METS (RN): 4 METS ANE Patient History - Allergies Allergies/Adverse Reactions: azithromycin Allergy (Verified 07/17/17 14:57) Diarrhea cephalexin monohydrate [From Keflex] Allergy (Verified 03/22/17 14:42) Abdominal Pain ciprofloxacin [From Cipro] Allergy (Verified 07/17/17 14:57) SEVERE GI ISSUES ciprofloxacin HCl [From Cipro] Allergy (Verified 03/22/17 14:42) metformin Allergy (Verified 03/22/17 14:42) Diarrhea morphine Allergy (Verified 07/17/17 14:57) BEHAVIORAL CHANGES - Home Medications Home Medications: RX: Herbals/Supplements -Info Only 1 ea PO DAILY 03/22/17 [Last Taken 08/06/17] RX: Ibuprofen [Motrin (*)] 600 mg PO DAILY PRN 03/22/17 [Last Taken 03/22/17] Lisinopril DAILY06 07/17/17 [Last Taken 08/12/17] Novolin N SQ BID 07/17/17 [Last Taken 08/13/17 4 units] Warfarin Sodium HS 07/17/17 [Last Taken 08/05/17] busPIRone BID 07/17/17 [Last Taken 08/12/17] - NPO status NPO Since - Liquids (Date): 08/13/17 NPO Since - Liquids (Time): 05:00 NPO Since - Solids (Date): 08/12/17 NPO Since - Solids (Time): 19:00 - Smoking Hx Smoking Status: Heavy smoker - Family Anes Hx Family Hx Anesthesia Complications: denies ANE Labs/Vital Signs - Vital Signs Blood Pressure: 133/87 Heart Rate: 68 Respiratory Rate: 16 O2 Sat (%): 94 Height: 167.64 cm Weight: 67.585 kg ANE Physical Exam - Airway Neck exam: FROM Mallampati Score: Class 3 Mouth exam: dentures, small mouth opening - Pulmonary Pulmonary: no respiratory distress - Cardiovascular Cardiovascular: regular rate and rhythym - ASA Status ASA Status: III ANE Anesthesia Plan Anesthesia Plan: general endotracheal anesthesia Regional Anesthesia: supraclavicular BP NB
[2017-08-13] MEDS ORDERED: KETOROLAC 15 MG/1 ML SDV IVP ONE (07:16)
[2017-08-13] MEDS ORDERED: ONDANSETRON 4 MG/2 ML VIAL IVP PRN ×2 (07:16→08:07)
[2017-08-13] MEDS ORDERED: fentaNYL 100 MCG/2 ML INJ ONE ×2 (07:17)
[2017-08-13] MEDS ORDERED: PROPOFOL 200 MG/20 ML VIAL ONE (07:17)
[2017-08-13] MEDS ORDERED: D5W 1/2 NS W/ 20 KCl/L 1,000 ML IV SCH (07:30)
[2017-08-13] MEDS ORDERED: NALOXONE HCL 0.4 MG/ML INJ IVP PRN (08:07)
[2017-08-13] MEDS ORDERED: HYDROCODONE/APAP 5/325 TAB PO PRN (08:07)
[2017-08-13] MEDS ORDERED: PROMETHAZINE HCL 25 MG/ML INJ IVP PRN (08:07)
[2017-08-13] MEDS ORDERED: HYDROmorphONE/DILAUDID 2 MG/ML INJ IVP PRN (08:07)
[2017-08-13] MEDS ORDERED: fentaNYL 100 MCG/2 ML INJ IVP PRN (08:07)
[2017-08-13] MEDS ORDERED: PHENYLEPHRINE HCL 100 MCG/ML SYR ONE (08:09)
[2017-08-13] MEDS ORDERED: ROCURONIUM 50 MG/5 ML VIAL ONE (08:09)
[2017-08-13] MEDS ORDERED: LIDOCAINE 2% 5 ML SDV ONE (08:09)
[2017-08-13] MEDS ORDERED: DEXAMETHASONE 4 MG/ML VIAL ONE (08:09)
[2017-08-13] MEDS ORDERED: epHEDrine SULFATE 10 MG/ML SYR ONE (08:09)
[2017-08-13] MEDS ORDERED: ROPIVACAINE HCL 150 MG/30 ML INJ ONE (08:09)
[2017-08-13] MEDS ORDERED: ONDANSETRON 4 MG/2 ML VIAL ONE (08:09)
[2017-08-13] MEDS ORDERED: DOCUSATE SODIUM 100 MG CAP PO SCH (09:00)
[2017-08-13] MEDS ORDERED: ENOXAPARIN 40 MG/0.4 ML SYR SC SCH (09:00)
--- NOTE | 2017-08-13 09:01 | POSTANESTH ---
Post Anesthetic Evaluation Cardiovascular Status: Normal, Stable Respiratory Status: Normal, Stable Level of Consciousness/Mental Status: Can Participate in Eval Pain Control: Adequate, Prn Tx Ordered Nausea/Vomiting Control: Adequate, Prn Tx Ordered Complications Possibly Related to Anesthesia: None Noted
[2017-08-13] MEDS ORDERED: KETOROLAC 15 MG/1 ML SDV ONE (09:11)
[2017-08-13] MEDS: oxyCODONE IR 5 MG TAB PO PRN ×2 (15:17→18:59)
[2017-08-13 16:10] VITALS: BP 139/60
--- NOTE | 2017-08-13 16:15 | ASMTCMCOM ---
CM Note CM Note Notes: Chart reviewed. 67 year old female s/p reverse total shoulder. Needs to be determined at this time. CM to follow. Plan: Likely to dc to home Independent. Date Signed: 08/13/2017 04:14 PM Electronically Signed By:Angélica Jurado RN
--- NOTE | 2017-08-13 18:55 | SOAPPROG ---
SOAP Progress Note Assessment/Plan: Assessment: s/p right rev tsa Plan:d/c home stable f.u with pcp for management of coumadin no plavix for 4 days 08/13/17 18:53 Subjective: no pain still with numbness to thumb and index finger no cp or sob Objective: Vital Signs Temp Pulse Resp BP Pulse Ox 36.9 C 83 16 139/60 H 94 08/13/17 16:00 08/13/17 16:00 08/13/17 16:00 08/13/17 16:00 08/13/17 16:00 08/12/17 08/13/17 08/14/17 05:59 05:59 05:59 Intake Total 875 Output Total 400 Balance 475 dressing intact intact digital flex and ext toes warm and pink neg homans nbil xrays stable alignment no fx or lucency decreased sensation at thumb and index intact at other digits ICD10 Worksheet Patient Problems: Problems Problem Status Onset Diabetes mellitus type 2 Active Atrial fibrillation Acute Atrial fibrillation with RVR Acute Chest pressure Acute Coronary artery disease Acute Hyperlipidemia Acute Hypertension Acute Peripheral vascular disease Acute
[2017-08-13] MEDS ORDERED: METOPROLOL TARTRATE 75 MG PO SCH (21:00)
[2017-08-13] MEDS ORDERED: BUSPIRONE 7.5 MG PO SCH (21:00)
[2017-08-13] MEDS ORDERED: PAROXETINE HCL 40 MG PO SCH (21:00)
[2017-08-13] MEDS ORDERED: INSULIN NPH HUMAN ISOPHANE SQ SCH (21:00)
[2017-08-14] MEDS ORDERED: NON-FORMULARY NEW DRUG (Lisinopril [Zestril 10 Mg (*)] 10 MG) PO SCH (09:00)
[2017-08-14] MEDS ORDERED: INSULIN NPH HUMAN ISOPHANE SQ SCH (09:00)
[2017-08-14] MEDS ORDERED: NON-FORMULARY NEW DRUG (Aspirin [Aspirin 81mg (*)] 81 MG) PO SCH (09:00)
[2017-08-14] MEDS ORDERED: CYANOCOBALAMIN 1000 MCG PO SCH (09:00)
[2017-08-14] MEDS ORDERED: CLOPIDOGREL BISULFATE 75 MG PO SCH (09:00)
[2017-08-14] MEDS ORDERED: WARFARIN SODIUM 2.5 MG PO SCH (16:00)
--- NOTE | 2017-08-16 06:48 | GOP ---
[f rep st] OPERATIVE REPORT DATE OF OPERATION: 08/13/2017 SURGEON: Aguilar Acevedo MD SPEECH LANGUAGE PATHOLOGY ASSISTANT: Alfred Garcia, RESERVOIR ENGINEERING MANAGER, SAFETY INSTRUCTION POLICE OFFICER, surgical garment assembly supervisor was a medical necessity for the entirety of the case. PREOPERATIVE DIAGNOSIS: Right shoulder rotator cuff arthropathy. POSTOPERATIVE DIAGNOSIS: Right shoulder rotator cuff arthropathy. PROCEDURE PERFORMED: Right reverse total shoulder arthroplasty. FINDINGS: SPECIMENS: To Pathology, the humeral head. INDICATIONS: The patient is a 67-year-old woman with end-stage arthritis and rotator cuff arthropath y to her right shoulder. She has failed all attempts at conservative management. I have, therefore, recommended operative intervention. I have outlined the surgical procedure, risks, benefits, and al ternatives. She wished to proceed. Written consent was signed and placed in the patient's chart. DESCRIPTION OF PROCEDURE: The patient was identified in the preanesthesia area. The right shoulder clearly demarcated as operative site with indelible marker. She was given 2 g of Ancef intravenously en route to the operative suite. In the OR interscalene block was placed followed by general endotr acheal anesthesia. She was positioned in a beach chair position. All bony prominences were well pad ded, including use of a neurological head men's tennis coach. Appropriate time-out procedure was carried out, th e shoulder and upper extremity were sterilely prepped and draped in usual fashion. An anterior delto pectoral interval approach was made. This was carried sharply through the skin and subcutaneous tiss ue, deltoid was retracted in a lateral direction. The cephalic vein was identified and retracted med ially with several fibers of the deltoid. The underlying structures were identified. The conjoined tendon was retracted in a medial direction with a self retainer. The anterior subscapularis was then freed from the lesser tuberosity into the rotator cuff interval. There was a large tear through the supraspinatus. This was peeled back and allowed access to the humeral head. The inferior retractor w as placed. The humeral head cut was then made. Retractors then placed facilitating visualization of the full glenoid. The remnants of the labrum were sharply excised. A central inferior pin was then placed into the central vault of the glenoid. The peripheral surrounding structures were then reame d and the central canal reamed. A metaglene component was then impacted, confirmed to be fully seate d, and secured with locking and nonlocking screws and a 38 mm glenosphere was impacted across the met aglene component and confirmed to be fully seated. Attention was then turned to the proximal humerus . This was opened with serial broaching to a size 12 broach. A reaming for a size 1 centered epiphy sis was carried out and the size 1 epiphysis and a size 12 stem were then assembled as the final impl ant and impacted across the proximal surface of the humerus. Trialing revealed a 6 mm polyethylene s pacer to be appropriate with full range of motion taoism and no instability through the flexion and extension rotation arc. The trial polyethylene was exchanged for the final polyethylene which wa s impacted, confirmed to be fully seated. The shoulder was copiously irrigated. The remaining rotat or cuff closed using #1 Ethibond suture. The tissue injected with a joint cocktail of ropivacaine, m orphine, Toradol, and epinephrine. The subcutaneous tissue closed using 0 Vicryl, 2-0 Monocryl, and skin was stapled. Sterile dressing, cryo Cuff shoulder immobilizer, was placed. The patient was bubba kened, extubated, taken to the recovery room in good stable condition. TOTAL TOURNIQUET TIME: None. COMPLICATIONS: None. IMPLANTS: DePuy Delta extend size 38 mm glenosphere, standard metaglene component, 3 locking, 1 nonl ocking screw. A size 12 stem with a size 1 centered epiphysis and a 38 + 6 mm polyethylene cup. DISPOSITION: To the recovery room, then the floor. /[id number]/MODL
--- NOTE | 2017-08-16 06:58 | GDS ---
[f rep st] DISCHARGE SUMMARY ADMIT DIAGNOSIS: Right shoulder rotator cuff arthropathy. DISCHARGE DIAGNOSIS: Right shoulder rotator cuff arthropathy. PROCEDURE: Right reverse total shoulder arthroplasty. HISTORY OF PRESENT ILLNESS: The patient is a 67-year-old woman with end-stage arthritis and rotator cuff arthropathy to her right shoulder. She had failed all attempts at conservative management. I r ecommended reverse total shoulder replacement. She understood the risks, benefits, alternatives, and wished to proceed. Written consent was signed and placed in patient's chart. HOSPITAL COURSE: The patient was admitted for a day stay following uncomplicated reverse total shoul valerio arthroplasty. She quickly cleared physical therapy. At the time of discharge, she is tolerating an oral diet. Pain is well controlled on oral medicines. Oxygen saturation is stable on room air. She understands her precautions. DISCHARGE ACTIVITY: She is pendulum range of motion. Sling at all other times. May remove the dres sing and shower on a daily basis. FOLLOWUP: Follow up in 2 weeks. She is to avoid her Plavix for approximately 4 days but will be sta rted on Lovenox and Coumadin immediately and will follow up with her primary care for management of t his. /[id number]/MODL
[2017-08-18] MEDS ORDERED: WARFARIN SODIUM 5 MG PO SCH (16:00)
== END 2017-08-13 19:34 | disposition home or self-care (01) | DRG 483 ==
LOC: F3N 06:05 → EDSTATUS 09:00 → F3N 09:55
PROVIDERS: ADMIT Orthopaedic Surgery; ATTEND Orthopaedic Surgery
PROC: 0RRJ00Z Replacement of Right Shoulder Joint with Reverse Ball and Socket Synthetic Substitute, Open Approach (ICD-10-PCS; principal; 2017-08-13 07:15)
DX: M19.011 Primary osteoarthritis, right shoulder (principal); M67.911 Unspecified disorder of synovium and tendon, right shoulder; I10 Essential (primary) hypertension; E11.9 Type 2 diabetes mellitus without complications; I25.10 Atherosclerotic heart disease of native coronary artery without angina pectoris; I48.91 Unspecified atrial fibrillation
CPT/HCPCS: C1713; J1100; J1885; J2250; J2370; J2405; J2704; J2795; J3010; J3370

== ENCOUNTER 2017-08-23 22:57 | Emergency (ER) | payer OTHER ==
--- NOTE | 2017-08-23 23:05 | EDPHY ---
H & P Time Seen by Provider: 08/23/17 22:59 HPI/ROS: CC: shortness of breath HPI: This 67-year-old female with past medical history including coronary artery disease with prior stenting, peripheral vascular disease with bilateral iliac stenting, DVT, diabetes, paroxysmal atrial fibrillation, hyperlipidemia, ongoing tobacco use and status post total right shoulder arthroplasty on 2017 presents to the emergency department tonight complaining of an abrupt onset of shortness of breath approximately 3 hours prior to arrival. She states she was lying on the couch watching TV when when she started feeling short of breath. Other than being exhausted and not sleeping well due to post- operative pain, she has felt otherwise fine. She denies chest pain, palpitations, dizziness or lightheadedness. She does not think she had a fever but states her skin has felt "creepy-crawly" and she has been cold. She has a cough and her throat feels raspy. She took her pain pills and cannabis oil this evening which makes her mouth feels dry. She denies headache, neck pain, ear pain, sore throat, abdominal pain, or dysuria. REVIEW OF SYSTEMS: Constitutional: See HPI. Eyes: No discharge. ENT: No sore throat. Respiratory: See HPI. Cardiac: No chest pain, no palpitations. Gastrointestinal: No abdominal pain, no vomiting. Genitourinary: No hematuria or dysuria. Musculoskeletal: No back pain. No calf pain or swelling. Right shoulder pain s/ p total shoulder arthroplasty. Skin: No rashes. Neurological: No headache. Source: Patient, Family Exam Limitations: No limitations - Personal History Tetanus Vaccine Date: 2009 - Medical/Surgical History PMH: PMH: Coronary artery disease with stenting, peripheral vascular disease with bilateral iliac stenting, hypertension, hyperlipidemia, paroxysmal atrial fibrillation with rapid ventricular response, diabetes, peripheral neuropathy, COPD, right lower extremity DVT, vertigo, depression, anxiety, tobacco abuse. PSH: Cardiac stents, iliac stents, rotator cuff repair, hysterectomy. FH: Father had hypertension, [place] at [place] 44, in a motor vehicle crash; mother had atrial fibrillation and cancer. Allergies to azithromycin, cephalexin, ciprofloxacin, metformin, morphine Medications include warfarin, metoprolol, lisinopril, Paxil, insulin, buspirone , Plavix. Primary care provider is Dr. Jeff Cid; Career Technical Counselor is Dr. Green Hx Asthma: No Hx Chronic Respiratory Disease: No Hx Diabetes: Yes Hx Cardiac Disease: Yes Hx Renal Disease: No Hx Cirrhosis: No Hx Alcoholism: No Hx HIV/AIDS: No Hx Splenectomy or Spleen Trauma: No Other PMH: cad, pvd, smoker, HTN, diabetes, bilateral femerol stents, A-FIB, depression/anxiety - Social History Smoking Status: Heavy smoker Additional Social History: The patient admits to smoking 1 pack per day for the last 40 years, denies significant alcohol use, occasionally will smoke marijuana but mainly uses cannabis oil. - Physical Exam Exam: General Appearance: Alert, mild distress. Eyes: Pupils equal and round no pallor or injection. ENT, Mouth: Mucous membranes are dry. Respiratory: There are no retractions, lungs sounds are distant bilaterally. Cardiovascular: Regular rate and rhythm. Occasional ectopic beat. Gastrointestinal: Abdomen is soft with mild tenderness RLQ to deep palpation, no pulsatile masses, bowel sounds normal. Neurological: Awake and alert, sensory and motor exams grossly normal. Skin: Warm and moist at her neck, no rashes. Musculoskeletal: Neck is supple nontender. Right shoulder wound with intact amarjit, clean and dry without sign of infection. No calf tenderness, swelling, warmth, cords or erythema. Extremities are symmetrical, limited range of motion of RUE. Psychiatric: Patient is oriented X 3, there is no agitation. DIFFERENTIAL DIAGNOSIS: After history and physical exam differential diagnosis was considered for COPD, Pneumonia, CHF, Cardiac, PE Constitutional: Initial Vital Signs Temperature (C) 98.4 F 08/23/17 23:09 Heart Rate 71 08/23/17 23:09 Respiratory Rate 18 08/23/17 23:09 Blood Pressure 206/85 H 08/23/17 23:09 O2 Sat (%) 95 08/23/17 23:09 O2 Delivery Mode Room Air O2 (L/minute) 2 Allergies/Adverse Reactions: azithromycin Allergy (Verified 08/23/17 23:11) Diarrhea cephalexin monohydrate [From Keflex] Allergy (Verified 08/23/17 23:11) Abdominal Pain ciprofloxacin [From Cipro] Allergy (Verified 08/23/17 23:11) SEVERE GI ISSUES ciprofloxacin HCl [From Cipro] Allergy (Verified 08/23/17 23:11) metformin Allergy (Verified 08/23/17 23:11) Diarrhea morphine Allergy (Verified 08/23/17 23:11) BEHAVIORAL CHANGES Home Medications: Medication Instructions Recorded Herbals/Supplements -Info Only 1 ea PO DAILY 03/22/17 Ibuprofen [Motrin (*)] 600 mg PO DAILY PRN 03/22/17 Metoprolol Tartrate 75 mg PO BID #60 tablet 03/23/17 Paroxetine HCl 40 mg PO HS #30 tablet 03/23/17 Insulin NPH Human Isophane 8 unit SQ DAILY 07/17/17 [Novolin N] Lisinopril [Zestril 10 mg (*)] 10 mg PO DAILY 07/17/17 Warfarin Sodium [Coumadin 5MG (*)] 5 mg PO SUMOSA@16 07/17/17 busPIRone [Buspar (*)] 7.5 mg PO BID 07/17/17 Aspirin [Aspirin 81mg (*)] 81 mg PO DAILY 08/13/17 Cyanocobalamin [Vitamin B12 (*)] 1,000 mcg PO DAILY 08/13/17 Enoxaparin [Lovenox 40 MG (*)] 40 mg SC DAILY #4 syr 08/13/17 Insulin NPH Human Isophane 12 unit SQ HS 08/13/17 [Novolin N] Warfarin Sodium [Coumadin 2.5MG 2.5 mg PO TUWETHFR@16 08/13/17 (*)] oxyCODONE IR [Oxycodone Ir (*)] 5 - 10 mg PO Q4HRS PRN #40 tab 08/13/17 Medical Decision Making - Diagnostics EKG Interpretation: NSR, HR 59, PAC, non-specific STTW changes anterolateral leads; changed from 03/23/2017 Imaging Results: Imaging Impressions Chest X-Ray 08/23/17 23:02 Impression: No acute cardiopulmonary process by radiograph today. CXR: s/p right total shoulder arthroplasty, NAD Imaging: I viewed and interpreted images myself ED Course/Re-evaluation: The patient was seen and examined. Vital signs and prior records reviewed. EKG showed a sinus rhythm with a heart rate of 59 in a premature atrial complex. There is some non specific ST T wave changes in the anterolateral leads that are new from March 23, 2017. QT corrected 461. The patient's CBC was unremarkable. Chemistry panel showed a hypokalemia with potassium of 3. Troponin was within normal limits. BNP was elevated at 2500. D-dimer was elevated. Chest x-ray showed no infiltrates or effusions. CT pulmonary angiogram showed no pulmonary embolism, she had mild dependent edema at the lung bases which was not very significant per the radiologist. There were some atherosclerotic changes as well. Patient was given half a mg of Ativan IV push prior to the CT due to claustrophobia. She was given an oral dose of potassium chloride 40 mEq. She was advised to increase foods containing potassium. She was given a tablet of Lasix 40 mg to take in the morning. She was also given an albuterol inhaler with a spacer. She is to follow up with her primary care provider either later today (Sunday), or on Sunday. She was advised to return to the emergency room immediately should her symptoms worsen or change. She had taken 3 of her Oxycodone tablets as well as a large dose of cannabis oil prior to arrival. She was advised to only take her medications as prescribed. Should she need additional pain relief I recommended that she take Tylenol and only as directed. - Data Points Laboratory Results: Laboratory Results 08/23/17 23:30 08/23/17 23:30 08/23/17 08/23/17 08/23/17 23:30 23:30 23:30 WBC 7.18 10^3/uL 10^3/uL (3.80-9.50) RBC 4.09 10^6/uL L 10^6/uL (4.18-5.33) Hgb 12.8 g/dL g/dL (12.6-16.3) Hct 36.6 % L % (38.0-47.0) MCV 89.5 fL fL (81.5-99.8) MCH 31.3 pg pg (27.9-34.1) MCHC 35.0 g/dL g/dL (32.4-36.7) RDW 13.5 % % (11.5-15.2) Plt Count 311 10^3/uL 10^3/uL (150-400) MPV 8.9 fL fL (8.7-11.7) Neut % (Auto) 67.4 % % (39.3-74.2) Lymph % (Auto) 23.8 % % (15.0-45.0) [place] % (Auto) 6.7 % % (4.5-13.0) Eos % (Auto) 1.3 % % (0.6-7.6) Baso % (Auto) 0.4 % % (0.3-1.7) Nucleat RBC Rel Count 0.0 % % (0.0-0.2) Absolute Neuts (auto) 4.84 10^3/uL 10^3/uL (1.70-6.50) Absolute Lymphs (auto) 1.71 10^3/uL 10^3/uL (1.00-3.00) Absolute Monos (auto) 0.48 10^3/uL 10^3/uL (0.30-0.80) Absolute Eos (auto) 0.09 10^3/uL 10^3/uL (0.03-0.40) Absolute Basos (auto) 0.03 10^3/uL 10^3/uL (0.02-0.10) Absolute Nucleated RBC 0.00 10^3/uL 10^3/uL (0-0.01) Immature Gran % 0.4 % % (0.0-1.1) Immature Gran # 0.03 10^3/uL 10^3/uL (0.00-0.10) PT 21.8 SEC H SEC (12.0-15.0) INR 1.95 H (0.83-1.16) D-Dimer 1.68 ug/mLFEU H ug/mLFEU (0.00-0.50) VBG Lactic Acid Sodium 137 mEq/L mEq/L (135-145) Potassium 3.0 mEq/L L mEq/L (3.5-5.2) Chloride 98 mEq/L mEq/L (97-110) Carbon Dioxide 28 mEq/l mEq/l (22-31) Anion Gap 11 mEq/L mEq/L (8-16) BUN 8 mg/dL mg/dL (7-23) Creatinine 0.5 mg/dL L mg/dL (0.6-1.0) Estimated GFR > 60 Glucose 218 mg/dL H mg/dL (70-100) Calcium 8.9 mg/dL mg/dL (8.5-10.4) Magnesium 1.8 mg/dL mg/dL (1.6-2.3) Total Bilirubin 0.7 mg/dL mg/dL (0.1-1.4) Conjugated Bilirubin 0.3 mg/dL mg/dL (0.0-0.5) Unconjugated Bilirubin 0.4 mg/dL mg/dL (0.0-1.1) AST 14 IU/L IU/L (14-46) ALT 20 IU/L IU/L (9-52) Alkaline Phosphatase 109 IU/L IU/L (38-126) Troponin I < 0.012 ng/mL ng/mL (0.000-0.034) NT-Pro-B Natriuret Pep 2500 pg/mL H pg/mL (0-125) Total Protein 6.3 g/dL g/dL (6.3-8.2) Albumin 3.4 g/dL L g/dL (3.5-5.0) 08/23/17 23:30 WBC RBC Hgb Hct MCV MCH MCHC RDW Plt Count MPV Neut % (Auto) Lymph % (Auto) [place] % (Auto) Eos % (Auto) Baso % (Auto) Nucleat RBC Rel Count Absolute Neuts (auto) Absolute Lymphs (auto) Absolute Monos (auto) Absolute Eos (auto) Absolute Basos (auto) Absolute Nucleated RBC Immature Gran % Immature Gran # PT INR D-Dimer VBG Lactic Acid 1.1 mmol/L mmol/L (0.7-2.1) Sodium Potassium Chloride Carbon Dioxide Anion Gap BUN Creatinine Estimated GFR Glucose Calcium Magnesium Total Bilirubin Conjugated Bilirubin Unconjugated Bilirubin AST ALT Alkaline Phosphatase Troponin I NT-Pro-B Natriuret Pep Total Protein Albumin Medications Given: Discontinued Medications Albuterol Sulfate (Proventil Inh Prepack) 1 mdi TAKEHOME EDNOW ONE Stop: 08/24/17 00:55 Last Admin: 08/24/17 00:59 Dose: 1 mdi Furosemide (Lasix Injection) 20 mg IVP EDNOW ONE Stop: 08/24/17 00:42 Last Admin: 08/24/17 00:55 Dose: Not Given Furosemide (Lasix) 40 mg PO EDNOW ONE Stop: 08/24/17 00:54 Last Admin: 08/24/17 01:00 Dose: 40 mg Lorazepam (Ativan Injection) 0.5 mg IVP EDNOW ONE Stop: 08/24/17 00:12 Last Admin: 08/24/17 00:16 Dose: 0.5 mg Magnesium Oxide (Magnesium Oxide) 400 mg PO EDNOW ONE Stop: 08/24/17 01:02 Last Admin: 08/24/17 01:19 Dose: Not Given Potassium Chloride (Klor-Con) 40 meq PO ONCE ONE Stop: 08/24/17 00:12 Last Admin: 08/24/17 00:18 Dose: 40 meq Departure - Departure Disposition: Home, Routine, Self-Care Clinical Impression: Acute dyspnea Condition: Good Instructions: Furosemide (By mouth), Albuterol (By breathing), Hypokalemia (ED) , Dyspnea (ED) Additional Instructions: Take your current medications as directed. Do not exceed maximum dose of your oxycodone. If extra pain relief needed, take Tylenol as directed. You may take the lasix (water pill) in the morning. Increase potassium containing foods. Use the Albuterol inhaler as directed as needed for shortness of breath. Call your doctor in the morning for follow up. Make sure they review your labs , EKG, and imaging studies. Return to the ED immediately if symptoms worsen or change as discussed. Referrals: Patient,NotPresent [Primary Care Provider] - As per Instructions
--- NOTE | 2017-08-23 23:33 | CPEKG ---
Heart Rate: 59 RR Interval: 1017 P-R Interval: 124 QRSD Interval: 84 QT Interval: 464 QTC Interval: 460 P [place]: 62 QRS [place]: 71 T Wave [place]: -22 EKG Severity - OTHERWISE NORMAL ECG - EKG Impression: SINUS RHYTHM EKG Impression: ATRIAL PREMATURE COMPLEX EKG Impression: NONSPECIFIC ST_T WAVE ABNORMAILITES Electronically Signed By: Shari Brody 24-Aug-2017 00:30:44
[2017-08-23 23:46] LABS: PLATELET COUNT 311 10^3/uL (150-400)
[2017-08-23 23:57] LABS: INR 1.95 (0.83-1.16); PROTIME(PATIENT) 21.8 SEC (12.0-15.0)
[2017-08-24] MEDS ORDERED: IOPAMIDOL (ISOVUE 370) 100 ML BTL IV ONE (00:10)
[2017-08-24] MEDS ORDERED: POTASSIUM CL 20 MEQ TAB PO ONE (00:11)
[2017-08-24] MEDS ORDERED: LORazepam 2 MG/ML INJ IVP ONE (00:11)
[2017-08-24] MEDS: FUROSEMIDE 20 MG/2 ML VIAL IVP ONE ×2 (00:52→00:55)
[2017-08-24] MEDS ORDERED: FUROSEMIDE 40 MG TAB PO ONE (00:53)
[2017-08-24] MEDS ORDERED: ALBUTEROL INH PREPACK MDI TAKEHOME ONE (00:54)
[2017-08-24] MEDS ORDERED: MAGNESIUM OXIDE 400 MG TAB PO ONE (01:01)
[2017-08-24 01:17] VITALS: BP 108/73
== END 2017-08-24 01:30 | disposition home or self-care (01) ==
LOC: CED 22:57
DX: R06.00 Dyspnea, unspecified (principal); I25.10 Atherosclerotic heart disease of native coronary artery without angina pectoris; I10 Essential (primary) hypertension; E11.9 Type 2 diabetes mellitus without complications; F17.200 Nicotine dependence, unspecified, uncomplicated; Z79.01 Long term (current) use of anticoagulants; Z79.4 Long term (current) use of insulin
CPT/HCPCS: 71045; 71275; 93005; 96374; 99285; J1940; J2060; Q9967; 80048-PO; 80076-PO; 83605-PO; 83735-PO; 83880-PO; 84484-PO; 85025-PO; 85378-PO; 85610-PO

== ENCOUNTER 2017-09-20 11:59 | Emergency (ER) | payer OTHER ==
--- NOTE | 2017-09-20 12:55 | EDPHY ---
H & P Time Seen by Provider: 09/20/17 12:09 HPI/ROS: HPI Fell down stairs. 67-year-old female by private vehicle with her son. She was at home. She slipped and fell down 4-5 stairs. She reports that she struck the right side back of her head and also her right posterior lateral lower rib area. She complains of pain to these areas. She denies loss of consciousness. She reports a posterior right-sided headache where she was struck in the head. She has not had any nausea or vomiting. She is not confused. She denies any neck pain. No loss of sensation or weakness in her extremities. She describes having right lower posterior lateral rib pain which is worse with taking a deep breath in. No other extremity pain or complaint. She takes Coumadin for atrial fibrillation. She reports that her last INR was 3.5 last week. ROS: Constitutional: No fever, no chills. No weakness. Eyes: No discharge. No changes in vision. ENT: No sore throat. No nasal congestion or rhinorrhea. Respiratory: No cough. No shortness of breath. Cardiac: No chest pain, no palpitations. Gastrointestinal: No abdominal pain, no vomiting, no diarrhea. Genitourinary: No hematuria. No dysuria or increased frequency with urination. Musculoskeletal: No back pain. No neck pain. As above. Skin: No rashes. No lacerations or abrasions. Neurological: No headache. No focal weakness or altered sensation. Past medical history: Atrial fibrillation, coronary artery disease with stents , smoker, hypertension, diabetes, bilateral femoral stents, right shoulder surgery, depression and anxiety. Social history: Smoker. Here with her son. No alcohol. Physical Exam: General Appearance: Alert, no distress. This patient is responding to questions appropriately and in full sentences. This patient appears well- hydrated and well-nourished. Head: Normocephalic atraumatic except for a scalp hematoma about the size of a quarter posterior lateral parietal on the right side. No bony step-off or deformity noted on palpation of this area.. Face: Facial bones are stable on palpation. Eyes: Pupils equal and round and reactive to light, no pallor or injection. No lid erythema or edema. ENT, Mouth: Mucous membranes moist. Dentition is intact. No malocclusion of the jaw. No tongue lacerations or abrasions. Pharynx is clear. The bilateral nasal canals are clear. No septal hematoma. Respiratory: There are no retractions, lungs are clear to auscultation with good air movement bilaterally. Chest wall is stable to AP and lateral palpation. She has tenderness on palpation right side lower posterior lateral ribs. No bony deformity or step-off noted on palpation of this area. Cardiovascular: Regular rate and rhythm. No murmur. Gastrointestinal: Abdomen is soft and nontender, no masses, bowel sounds normal. Neurological: Motor sensory function is intact. Cranial nerves are normal. Cerebellar function intact. Skin: Warm and dry, no rashes. No lacerations, abrasions. Contusion to left mid ventral forearm. No pain on axial compression of the left forearm or pronation/supination. No bony deformity noted on palpation over the contusion. Musculoskeletal: Neck is supple and nontender. The trachea is midline. No midline cervical, thoracic, lumbar or sacral tenderness on palpation. No flank tenderness on palpation. Extremities are symmetrical, full range of motion. All joints in the bilateral upper and bilateral lower extremities range without pain or impingement. No tenderness on palpation of the long bones in the bilateral upper and bilateral lower extremities. Psychiatric: No agitation. No depression. Database: EKG: Imaging: PA chest with right-sided rib series x-ray: Nondisplaced fractures of the right posterior lateral 6th and 11th ribs. Please see report by staff radiologist Dr. Enzo Geller for further details. CT head without contrast: Negative. No skull fracture. No acute intracranial process. Results were discussed with staff radiologist Dr. Garrick Phipps. Procedures: Emergency department course: Vital signs reviewed. Patient sent for imaging as above. Patient given 2 Vicodin for pain. 1:05 p.m., patient re-evaluated. Resting comfortably at this time. Results of her diagnostic imaging discussed with her and her son. Pulse oximetry on room air is 96-97%. She feels comfortable going home and I feel she is safe for discharge with her son. I will prescribe Vicodin for pain. She has had this in the past for long-term pain control and it has worked well for her. She will follow up with her primary care physician tomorrow or Sunday to be re- evaluated. I discussed return to emergency department precautions thoroughly with her and her son. All of their questions were answered. The patient was discharged home in good condition with her son. Differential Diagnosis: The differential diagnosis on this patient includes but is not limited to rib fractures, scalp contusion. Forearm fracture, traumatic brain injury, skull fracture, cervical spine injury, other significant traumatic injury unlikely. This represents a partial list of diagnoses considered. These considerations are based on history, physical exam, past history, reassessment and diagnostic testing. Smoking Status: Heavy smoker Constitutional: Initial Vital Signs Temperature (C) 36.8 C 09/20/17 12:05 Heart Rate 71 09/20/17 12:05 Respiratory Rate 18 09/20/17 12:05 O2 Sat (%) 96 09/20/17 12:05 O2 Delivery Mode Room Air Allergies/Adverse Reactions: azithromycin Allergy (Verified 09/20/17 12:22) Diarrhea cephalexin monohydrate [From Keflex] Allergy (Verified 09/20/17 12:22) Abdominal Pain ciprofloxacin [From Cipro] Allergy (Verified 09/20/17 12:22) SEVERE GI ISSUES ciprofloxacin HCl [From Cipro] Allergy (Verified 09/20/17 12:22) metformin Allergy (Verified 09/20/17 12:22) Diarrhea morphine Allergy (Verified 09/20/17 12:22) BEHAVIORAL CHANGES Home Medications: Medication Instructions Recorded Herbals/Supplements -Info Only 1 ea PO DAILY 03/22/17 Ibuprofen [Motrin (*)] 600 mg PO DAILY PRN 03/22/17 Metoprolol Tartrate 75 mg PO BID #60 tablet 03/23/17 Paroxetine HCl 40 mg PO HS #30 tablet 03/23/17 Insulin NPH Human Isophane 8 unit SQ DAILY 07/17/17 [Novolin N] Lisinopril [Zestril 10 mg (*)] 10 mg PO DAILY 07/17/17 Warfarin Sodium [Coumadin 5MG (*)] 5 mg PO SUMOSA@16 07/17/17 busPIRone [Buspar (*)] 7.5 mg PO BID 07/17/17 Aspirin [Aspirin 81mg (*)] 81 mg PO DAILY 08/13/17 Cyanocobalamin [Vitamin B12 (*)] 1,000 mcg PO DAILY 08/13/17 Enoxaparin [Lovenox 40 MG (*)] 40 mg SC DAILY #4 syr 08/13/17 Insulin NPH Human Isophane 12 unit SQ HS 08/13/17 [Novolin N] Warfarin Sodium [Coumadin 2.5MG 2.5 mg PO TUWETHFR@16 08/13/17 (*)] oxyCODONE IR [Oxycodone Ir (*)] 5 - 10 mg PO Q4HRS PRN #40 tab 08/13/17 Docusate Sodium [Colace 100 MG (*)] 100 mg PO TID #20 cap 09/20/17 Hydrocodone/APAP 5/325 [[place] 1 - 2 tab PO Q4-6PRN PRN #20 tab 09/20/17 5/325 (*)] Medical Decision Making - Diagnostics Imaging Results: Imaging Impressions Head CT 09/20/17 12:26 Impression: 1. Normal CT brain without contrast. 2. No epidural or subdural hematoma. Findings and recommendations discussed with Emergency Department physician, Yane Blas MD, at 1254 hour, 09/20/2017. Final report concurs with initial preliminary interpretation. Ribs w/Chest X-Ray 09/20/17 12:26 Impression: Fractures of the right 6th and 11th ribs. - Data Points Medications Given: Discontinued Medications Hydrocodone Bitart/Acetaminophen ([place] 5/325) 2 tab PO EDNOW ONE Stop: 09/20/17 13:25 Last Admin: 09/20/17 13:30 Dose: 2 tab Departure - Departure Disposition: Home, Routine, Self-Care Clinical Impression: Head injury, Multiple fractures of ribs of right side Condition: Good Instructions: Rib Fracture (ED), Head Injury (ED) Additional Instructions: Read and follow provided instructions. Follow-up with your primary care physician in tomorrow or on Sunday as discussed for re-evaluation. Take medication as prescribed for pain. Do not drive while on this medication. Return to the emergency department for worsening headache, nausea and vomiting, confusion, worsening rib pain, difficulty breathing, fever or other serious concerns. Referrals: NONE *PRIMARY CARE P,. [Primary Care Provider] - As per Instructions Prescriptions: Docusate Sodium [Colace 100 MG (*)] 100 mg PO TID #20 cap Hydrocodone/APAP 5/325 [[place] 5/325 (*)] 1 - 2 tab PO Q4-6PRN PRN #20 tab PRN Reason: Pain, Moderate
[2017-09-20] MEDS ORDERED: HYDROCODONE/APAP 5/325 TAB PO ONE (13:24)
[2017-09-20 13:53] VITALS: BP 134/100
== END 2017-09-20 13:34 | disposition home or self-care (01) ==
LOC: CED 11:59
DX: S22.41XA Multiple fractures of ribs, right side, initial encounter for closed fracture (principal); S09.90XA Unspecified injury of head, initial encounter; I25.10 Atherosclerotic heart disease of native coronary artery without angina pectoris; I10 Essential (primary) hypertension; E11.9 Type 2 diabetes mellitus without complications; F17.200 Nicotine dependence, unspecified, uncomplicated; Z95.5 Presence of coronary angioplasty implant and graft; Z79.82 Long term (current) use of aspirin; Z79.4 Long term (current) use of insulin; Z79.01 Long term (current) use of anticoagulants; W10.9XXA Fall (on) (from) unspecified stairs and steps, initial encounter
CPT/HCPCS: 70450-PO; 71101-PO

== ENCOUNTER → 2017-09-24 | Outpatient (CLI) | payer OTHER | LOC: BMCIMAGING 09:44 | PROVIDERS: ATTEND Physician Assistant | DX: Z47.1 Aftercare following joint replacement surgery (principal); Z96.611 Presence of right artificial shoulder joint ==

== ENCOUNTER 2017-10-08 20:27 | Inpatient (IN) | payer OTHER ==
--- NOTE | 2017-10-08 21:00 | EDPHY ---
H & P Stated Complaint: hx of dvt RLE, c/o aching pain distal RLEx 2 day, today coolness in R foot - Personal History Tetanus Vaccine Date: 2009 - Medical/Surgical History Hx Asthma: No Hx Chronic Respiratory Disease: No Hx Diabetes: Yes Hx Cardiac Disease: Yes Hx Renal Disease: No Hx Cirrhosis: No Hx Alcoholism: No Hx HIV/AIDS: No Hx Splenectomy or Spleen Trauma: No Other PMH: cad, pvd, smoker, HTN, diabetes, bilateral femerol stents, A-FIB, depression/anxiety, R shoulder replacement, hysterectomy, R distal leg - dvt, cardiac stent - Social History Smoking Status: Heavy smoker Time Seen by Provider: 10/08/17 20:45 HPI/ROS: CHIEF COMPLAINT: Right leg pain x3 days "I think I have a DVT" HISTORY OF PRESENT ILLNESS: 67-year-old female with medical history significant for diabetes, atrial fibrillation, chronic warfarin anticoagulation , history of occlusion of right femoral popliteal arteries with catheter directed intra-arterial thrombolysis and stent placement in July 2016 complaining of 3 days of pain to right lower extremity was feels similar as prior episodes. She notes that the leg seems pallorous and cooler than normal. She has been compliant with her warfarin. She denies trauma. Denies chest pain. Denies dyspnea. Denies back or flank pain. Denies syncope or near- syncope. REVIEW OF SYSTEMS: A ten point review of systems was performed and is negative with the exception of the items mentioned in the HPI PAST MEDICAL & SURGICAL HISTORY: Atrial fibrillation. Diabetes. Right femoral popliteal artery occlusion with catheter direct intra-arterial thrombolysis and stent placement in July 2016 SOCIAL HISTORY:Nonsmoker PHYSICAL EXAM (Prior to examination, patient consented to physical exam, hands were washed and my usual and customary physical exam procedures followed) 1) GENERAL: Well-developed, well-nourished, alert and oriented. Appears to be in no acute distress. 2) HEAD: Normocephalic, atraumatic 3) HEENT: Pupils equal, round, reactive to light bilaterally. Sclera anicteric. 4) NECK: Full range of motion, no meningeal signs. 5) LUNGS: Clear auscultation bilaterally, no wheezes, no rhonchi, no retractions. 6) HEART: Regular rate and rhythm, no murmur, no heave, no gallop. 7) ABDOMEN: No guarding, no rebound, no focal tenderness, negative McBurney', 8) MUSCULOSKELETAL: Right lower extremity: Pallorous, cool, right lower extremity , soft compartments , unable to appreciate palpable or dopplerable pulses. 9) BACK: No CVA tenderness, no midline vertebral tenderness, no fluctuance, no step-off, no obvious trauma, no visual or palpable abnormality. 10) SKIN: No rash, no petechiae. 11) Psychiatric: Patient is oriented X 3, there is no agitation. DIFFERENTIAL DIAGNOSIS: In no particular include but limited to DVT, arterial occlusion, compartment syndrome (Angelia,Paulette Darshana) Constitutional: Initial Vital Signs Temperature (C) 36.8 C 10/08/17 20:33 Heart Rate 75 10/08/17 20:33 Respiratory Rate 16 10/08/17 20:33 Blood Pressure 217/95 H 10/08/17 20:33 O2 Sat (%) 96 10/08/17 20:33 O2 Delivery Mode Room Air Allergies/Adverse Reactions: azithromycin Allergy (Verified 10/08/17 20:39) Diarrhea cephalexin monohydrate [From Keflex] Allergy (Verified 10/08/17 20:39) Abdominal Pain ciprofloxacin [From Cipro] Allergy (Verified 10/08/17 20:39) SEVERE GI ISSUES ciprofloxacin HCl [From Cipro] Allergy (Verified 10/08/17 20:39) metformin Allergy (Verified 10/08/17 20:39) Diarrhea morphine Allergy (Verified 10/08/17 20:39) BEHAVIORAL CHANGES Home Medications: Medication Instructions Recorded Ibuprofen [Motrin (*)] 200 - 600 mg PO DAILY PRN 03/22/17 Metoprolol Tartrate 75 mg PO BID #60 tablet 03/23/17 Insulin NPH Human Isophane 8 unit SQ DAILY 07/17/17 [Novolin N] Lisinopril [Zestril 10 mg (*)] 10 mg PO DAILY 07/17/17 busPIRone [Buspar (*)] 7.5 mg PO BID 07/17/17 Cyanocobalamin [Vitamin B12 (*)] 1,000 mcg PO DAILY 08/13/17 Insulin NPH Human Isophane 12 unit SQ HS 08/13/17 [Novolin N] PARoxetine HCL [Paxil 20mg (*)] 40 mg PO BID 10/09/17 Clopidogrel Bisulfate [Plavix (*)] 75 mg PO DAILY #30 tab 10/11/17 Enoxaparin [Lovenox 60 MG (*)] 60 mg SQ Q12H #8 syr 10/11/17 Warfarin Sodium [Coumadin 5MG (*)] 5 mg PO DAILY #30 tab 10/11/17 oxyCODONE IR [Oxycodone Ir (*)] 5 - 10 mg PO Q4HRS PRN #30 tab 10/11/17 Medical Decision Making ED Course/Re-evaluation: 8:59 p.m.: Discussed case with secondary supervising physician Dr. Lisa Gaspar in the ER who also evaluated the patient. Will obtain aortic runoff study. 9:30 p.m.: Venous ultrasound is negative. 9:59 p.m.: CT angiography results pending. Phone consultation Dr. Khadar Diamond who will come evaluate the patient. 10:02 p.m.: CT angiography results interpreted by staff radiologist showing occluded right femoral artery and graft 10:10 p.m.: Patient's rate will vary from 100-140, atrial fibrillation. Will administer Cardizem. 1030 pm: Dr Diamond in the ER to evaluate patient 11:03 p.m.: Dr. Khadar Diamond has evaluated the patient. He recommended admission to hospitalist, he will coordinate with interventional radiologist in the morning to possibly perform thrombolysis. Recommends admission to hospitalist service (Paulette Galan) Other Provider: I evaluated and participated in the management of the patient. My co-signature indicates that I have reviewed this chart and I agree with thefindings and plan of care as documented. My personal H&P findings include: 67 year old female with history of diabetes, afib, right femoral popliteal arterial occlusion treated with catheter directed thromoblysis as well as stent placement last year. Today presents c/o pain in right lower extremity as well as cool sensation. Patient is on coumadin. No additional complaints, no sob or chest pain. No fever. On exam: patient is pleasant, slightly uncomfortable appearing, right leg and foot are cool to touch, pale. DP and PT pulses are not palpable. US ordered as well as CT angiogram with runoff. Dr Diamond involved in patients care and evaluated in ED. He was notified prior to results of studies being obtained due to concerns regarding arterial insufficiency. Patient to be admitted to hospitalist service with Dr Diamond and IR coordinating to perform definitive management. Patient developed rapid ventricular rate while in ED and was given cardizem IV. (Lisa Gaspar) - Data Points Laboratory Results: Laboratory Results 10/08/17 21:05 10/08/17 21:05 Medications Given: Discontinued Medications Acetaminophen (Tylenol) 650 mg PO Q4HRS PRN PRN Reason: Pain, Mild/Fever, Can Take PO Stop: 04/06/18 23:10 Last Admin: 10/09/17 19:41 Dose: 650 mg Buspirone HCl (Buspar) 7.5 mg PO BID [facility] Stop: 04/07/18 20:59 Last Admin: 10/11/17 08:09 Dose: 7.5 mg Clopidogrel Bisulfate (Plavix) 300 mg PO ONCE ONE Stop: 10/10/17 17:01 Last Admin: 10/10/17 17:23 Dose: 300 mg Clopidogrel Bisulfate (Plavix) 75 mg PO DAILY [facility] Stop: 04/09/18 08:59 Last Admin: 10/11/17 08:08 Dose: 75 mg Diltiazem HCl (Cardizem 25 Mg/5 Ml Vial) 10 mg IVP EDNOW ONE Stop: 10/08/17 22:10 Last Admin: 10/08/17 22:16 Dose: 10 mg Fentanyl (Sublimaze) 50 mcg IVP EDNOW ONE Stop: 10/08/17 22:39 Last Admin: 10/08/17 22:41 Dose: 50 mcg Fentanyl (Sublimaze) 0 mcg IVP ONCALL PRN PRN Reason: Per provider during procedure Stop: 10/09/17 12:10 Last Admin: 10/09/17 12:45 Dose: 175 mcg Fentanyl (Sublimaze) 0 mcg IVP ONCALL PRN PRN Reason: Per provider during procedure Stop: 10/10/17 14:28 Last Admin: 10/10/17 15:48 Dose: 25 mcg Heparin Sodium (Porcine) (Heparin Injection) 0 unit IVP ONCE ONE PRN Reason: Protocol Stop: 10/08/17 23:14 Last Admin: 10/08/17 23:59 Dose: 3,800 unit Hydralazine HCl (Apresoline) 10 mg IVP Q6 PRN PRN Reason: SBP>170 Stop: 04/07/18 15:04 Last Admin: 10/10/17 19:08 Dose: 10 mg Hydromorphone HCl (Dilaudid) 1 mg IVP Q2 PRN PRN Reason: Pain, Severe Stop: 10/19/17 14:57 Last Admin: 10/09/17 14:55 Dose: 1 mg Heparin Sodium (Porcine) (Heparin 50 Units/Ml (Premix)) 500 mls @ 0 mls/hr IV CONT GABRIELA; Per Protocol PRN Reason: Protocol Stop: 04/06/18 23:14 Last Admin: 10/08/17 23:59 Dose: 500 mls Alteplase, Recombinant 5 mg/ (Sodium Chloride) 100 mls @ 0 mls/hr IV CONT GABRIELA; As Directed PRN Reason: Protocol Stop: 04/07/18 12:59 Last Admin: 10/09/17 12:55 Dose: 100 mls Alteplase, Recombinant 5 mg/ (Sodium Chloride) 100 mls @ 0 mls/hr IV CONT GABRIELA; Per Protocol PRN Reason: Protocol Stop: 04/07/18 12:44 Last Admin: 10/10/17 04:24 Dose: 100 mls Heparin Sodium (Porcine) (Heparin 50 Units/Ml (Premix)) 500 mls @ 0 mls/hr IV CONT GABRIELA; As Directed PRN Reason: Protocol Stop: 04/07/18 12:44 Last Admin: 10/09/17 12:59 Dose: 6 mls Heparin Sodium (Porcine) (Heparin 50 Units/Ml (Premix)) 500 mls @ 0 mls/hr IV CONT GABRIELA; Per Protocol PRN Reason: Protocol Stop: 04/08/18 16:59 Last Admin: 10/10/17 20:01 Dose: 500 mls Insulin Human Lispro (Humalog Lispro) 0 unit SC TIDMEAL GABRIELA PRN Reason: Protocol Stop: 04/07/18 07:59 Last Admin: 10/11/17 11:48 Dose: 4 units Lisinopril (Zestril) 10 mg PO DAILY GABRIELA Stop: 04/08/18 08:59 Last Admin: 10/11/17 08:08 Dose: 10 mg Lorazepam (Ativan) 1 - 2 mg PO Q8HRS PRN PRN Reason: Spasms Stop: 04/07/18 12:33 Last Admin: 10/10/17 07:17 Dose: 2 mg Metoprolol Tartrate (Lopressor) 75 mg PO BID GABRIELA Stop: 04/07/18 20:59 Last Admin: 10/11/17 08:07 Dose: 75 mg Midazolam HCl (Versed) 0 mg IVP ONCALL PRN PRN Reason: Per provider during procedure Stop: 10/09/17 12:10 Last Admin: 10/09/17 12:47 Dose: 3.5 mg Midazolam HCl (Versed) 0 mg IVP ONCALL PRN PRN Reason: Per provider during procedure Stop: 10/10/17 14:28 Last Admin: 10/10/17 15:48 Dose: 0.5 mg Ondansetron HCl (Zofran) 4 mg IVP Q4HRS PRN PRN Reason: Nausea/Vomiting, Can't Take PO Stop: 04/06/18 23:10 Last Admin: 10/09/17 19:21 Dose: 4 mg Oxycodone HCl (Oxycodone Ir) 5 - 10 mg PO Q4HRS PRN PRN Reason: Pain, Severe Able to Take PO Stop: 10/18/17 23:31 Last Admin: 10/10/17 20:11 Dose: 5 mg Paroxetine HCl (Paxil) 40 mg PO BID GABRIELA Stop: 04/07/18 20:59 Last Admin: 10/11/17 08:08 Dose: 40 mg Protamine Sulfate (Protamine Sulfate) 50 mg IVP ONCE ONE Stop: 10/10/17 15:02 Last Admin: 10/10/17 15:49 Dose: 50 mg Vitamin B Complex (Vitamin B12) 1,000 mcg PO DAILY GABRIELA Stop: 04/08/18 08:59 Last Admin: 10/11/17 09:41 Dose: 1,000 mcg Point of Care Test Results: Chemistry 10/08/17 21:13 POC Sodium 137 mEq/L mEq/L (135-145) POC Potassium 3.9 mEq/L mEq/L (3.3-5.0) POC Chloride 99 mEq/L mEq/L (97-110) POC BUN 8 mg/dL mg/dL (7-23) POC Creatinine 0.4 mg/dL L mg/dL (0.6-1.0) POC Glucose 301 mg/dL H mg/dL (70-100) ISTAT H&H 10/08/17 21:13 POC Hgb 15.6 gm/dL gm/dL (12.6-16.3) POC Hct 46 % % (38-47) Departure - Departure Disposition: [facility] Inpatient Acute Clinical Impression: Occlusion of right femoral artery Atrial fibrillation Qualifiers: Atrial fibrillation type: paroxysmal Qualified Code(s): I48.0 - Paroxysmal atrial fibrillation Condition: Good
[2017-10-08] MEDS ORDERED: IOPAMIDOL (ISOVUE 370) 100 ML BTL IV ONE (21:05)
[2017-10-08 21:26] LABS: PLATELET COUNT 216 10^3/uL (150-400)
[2017-10-08 21:29] LABS: INR 1.76 (0.83-1.16); PROTIME(PATIENT) 20.6 SEC (12.0-15.0)
--- NOTE | 2017-10-08 22:05 | CPEKG ---
Heart Rate: 102 RR Interval: 588 QRSD Interval: 70 QT Interval: 348 QTC Interval: 454 QRS Easley: 63 T Wave Easley: -49 EKG Severity - ABNORMAL ECG - EKG Impression: ATRIAL FIBRILLATION, V-RATE 87-122 EKG Impression: MULTIPLE VENTRICULAR PREMATURE COMPLEXES Electronically Signed By: Kacey Ngo 09-Oct-2017 04:43:34
[2017-10-08] MEDS ORDERED: DILTIAZEM 25 MG/5 ML VIAL IVP ONE (22:09)
[2017-10-08] MEDS ORDERED: fentaNYL 100 MCG/2 ML INJ IVP ONE (22:38)
[2017-10-08] MEDS ORDERED: ONDANSETRON DISINTEGRATING 4 MG TAB PO PRN (23:11)
[2017-10-08] MEDS ORDERED: ONDANSETRON 4 MG/2 ML VIAL IVP PRN (23:11)
[2017-10-08] MEDS ORDERED: ACETAMINOPHEN 325 MG TAB PO PRN (23:11)
[2017-10-08] MEDS ORDERED: HEPARIN 10,000 UNIT/10 ML MDV (1,000 UNIT/ML) IVP PRN (23:13)
[2017-10-08] MEDS ORDERED: HEPARIN 10,000 UNIT/10 ML MDV (1,000 UNIT/ML) IVP ONE (23:13)
[2017-10-08] MEDS ORDERED: HEPARIN/DEXTROSE 500 ML IV SCH (23:15)
[2017-10-08] MEDS ORDERED: D50W 25 GM/50 ML SYR IVP PRN (23:34)
[2017-10-09] MEDS ORDERED: MELATONIN 3 MG TAB PO PRN (00:17)
[2017-10-09] MEDS: oxyCODONE IR 5 MG TAB PO PRN ×3 (00:29→14:54)
--- NOTE | 2017-10-09 00:51 | GCON ---
[f rep st] CONSULTATION DATE OF CONSULTATION: 10/08/2017 REFERRING PHYSICIAN: Hill Bingham REASON FOR EVALUATION: Leg artery occlusion. HISTORY OF PRESENT ILLNESS: 67-year-old female with a significant history for coronary artery disease, status post PTCA with stent placement, atrial fibrillation, and extensive bilateral lower extremity peripheral vascular disease status post multiple prior stenting procedures including bilateral external iliac artery stents as well as long segment SFA level stents. She is diabetic with a history of COPD. She had been in her usual state of health, able to ambulate multiple blocks without claudication and/or rest pain symptoms. She presents to the emergency room this evening with a history of 48- 72 hours worsening right thigh and calf pain similar to her prior occlusive episode last year. She does note a recent history of trauma resultant in a right shoulder injury requiring a reverse total shoulder arthroplasty in July 2016 as well as blunt hip trauma. This did not precipitate any of her leg symptoms at that time. She is currently with complaints of mild shortness of breath and chest pain and noted to be in atrial fibrillation again, which she has had in the past. She denies abdominal complaints. She denies nonhealing wounds. She does smoke approximately a pack a day. She has had significant episodes of depression since the loss of her a year ago. Surgery has been requested for further recommendations. PAST MEDICAL HISTORY: Coronary artery disease status post PCI bilateral iliac and SFA level stenting, [id number] diabetes mellitus, hypertension, hyperlipidemia, chronic atrial fibrillation, chronic obstructive pulmonary disease, peripheral neuropathy. SURGERIES: Hysterectomy, right reverse shoulder arthroplasty, multiple stenting procedures as noted above. SOCIAL: Significant tobacco. No significant alcohol. MEDICATIONS: Herbal supplements, Motrin, metoprolol, paroxetine, insulin, Zestril, Coumadin, BuSpar, aspirin, vitamin B12. ALLERGIES: Azithromycin, Keflex, ciprofloxacin, metformin dry causes diarrhea. Morphine causes mental status changes. FAMILY HISTORY: Noncontributory. REVIEW OF SYSTEMS: Notable for intermittent chest pain, shortness of breath, as well as leg artery occlusion symptoms and chronic neuropathy. PHYSICAL EXAMINATION: VITAL SIGNS: Temperature 36.8, blood pressure 149/109, heart rate 120 irregular, respirations 18, 94% saturation on room air. GENERAL: The patient is alert, appropriate, comfortable. HEENT: Anicteric. LYMPH NODES: No cervical or supraclavicular lymphadenopathy. HEART: Irregular, irregular. LUNGS: Diminished bilaterally. ABDOMEN: Soft, nontender, nondistended. No pulsatile masses. No abdominal bruits. EXTREMITIES: Bilateral upper and lower extremities are warm without edema. No focal embolic lesions. No nonhealing ulcers. 2+ radial, brachial, carotid pulses bilaterally, 2+ left femoral, popliteal as well as dorsalis pedis pulses 1+ right femoral with absent popliteal and pedal pulses. SKIN: Without lesions. NEUROLOGIC: Alert and appropriate. LABORATORY DATA: White, hemoglobin 15, platelets of 216. INR of 1.8. Electrolytes within reference range. Glucose 301. CT images were directly reviewed on PACS with on-call radiologist. Patent kissing external iliac artery stents with distal external iliac artery stenosis , short-segment patent right common femoral artery with multiple areas of collateralization, long segment SFA stent occlusion from the profunda origin to the distal SFA to just above the popliteal artery takeoff, 2-vessel runoff to the ankle was present. IMPRESSION: 1. Extensive prior stenting history and prior dissection/occlusions with new right superficial femoral artery stent occlusion. The patient is currently without limb threat. 2. Atrial fibrillation. 3. Chronic obstructive pulmonary disease. 4. Diabetes. RECOMMENDATIONS: The patient is being admitted for plans for prior thrombolysis of her SFA stent and possible angioplasty of her external iliac artery stenting to maximize her subsequent inflow. This will hopefully provide satisfactory relief of her new onset symptoms. Her bypass options are somewhat limited given her extensive comorbidities and limited bypass targets. These findings and recommendations as well as care plan were discussed in detail with on-call radiologist, emergency room, physician, hospitalist service, as well as patient and her daughter at bedside. /[id number]/MODL MTDD
--- NOTE | 2017-10-09 01:16 | PDGENHP ---
History and Physical - Chief Complaint R leg pain - History of Present Illness 67 yo F w/ hx of CAD s/p KOBI, AF, and PVD w/ multiple stent placements presents with R leg pain. Patient tells me she has noted acute onset R leg pain for about day. This involves her R hip down to her R calf. Upon my examination her R foot is cool and pulseless. Prior to a few days ago patient was ambulating well. HR is currently in low 100's and in AF, which is chronic for her. Per discussion w/ ED physician, CTA reveals femoral stent occlusion on the right ( no formal report available currently). History Information - Allergies/Home Medication List Allergies/Adverse Reactions: azithromycin Allergy (Verified 10/08/17 20:39) Diarrhea cephalexin monohydrate [From Keflex] Allergy (Verified 10/08/17 20:39) Abdominal Pain ciprofloxacin [From Cipro] Allergy (Verified 10/08/17 20:39) SEVERE GI ISSUES ciprofloxacin HCl [From Cipro] Allergy (Verified 10/08/17 20:39) metformin Allergy (Verified 10/08/17 20:39) Diarrhea morphine Allergy (Verified 10/08/17 20:39) BEHAVIORAL CHANGES Home Medications: Herbals/Supplements -Info Only 1 ea PO DAILY 03/22/17 [Last Taken 08/06/17] Ibuprofen [Motrin (*)] 600 mg PO DAILY PRN 03/22/17 [Last Taken 03/22/17] Insulin NPH Human Isophane [Novolin N] 8 unit SQ DAILY 07/17/17 [Last Taken ] Lisinopril [Zestril 10 mg (*)] 10 mg PO DAILY 07/17/17 [Last Taken 08/12/17] Warfarin Sodium [Coumadin 5MG (*)] 5 mg PO SUMOSA@16 07/17/17 [Last Taken ] busPIRone [Buspar (*)] 7.5 mg PO BID 07/17/17 [Last Taken 08/12/17] Aspirin [Aspirin 81mg (*)] 81 mg PO DAILY 08/13/17 [Last Taken Unknown] Cyanocobalamin [Vitamin B12 (*)] 1,000 mcg PO DAILY 08/13/17 [Last Taken Unknown ] Insulin NPH Human Isophane [Novolin N] 12 unit SQ HS 08/13/17 [Last Taken ] Warfarin Sodium [Coumadin 2.5MG (*)] 2.5 mg PO TUWETHFR@16 08/13/17 [Last Taken 08/10/17] I have personally reviewed and updated: family history, medical history - Past Medical History coronary artery disease, COPD, diabetes type 2, peripheral artery disease - Surgical History Reports: hysterectomy, coronary stent Additional surgical history: R shoulder arthroplasty. Multiple peripheral stents - Family History Additional family history: Denies family history of blood clots - Social History Smoking Status: Heavy smoker Review of Systems Review of Systems: ROS: 10pt was reviewed & negative except for what was stated in HPI & below Physical Exam Physical Exam: Temp Pulse Resp BP Pulse Ox 36.9 C 101 H 18 134/81 H 93 10/08/17 23:50 10/08/17 23:50 10/08/17 23:50 10/08/17 23:50 10/08/17 23:50 Constitutional: no apparent distress, uncomfortable Eyes: PERRL, EOMI Ears, Nose, Mouth, Throat: moist mucous membranes, no oral mucosal ulcers Cardiovascular: irregularly irregular, tachycardia Respiratory: no respiratory distress, clear to auscultation Gastrointestinal: normoactive bowel sounds, soft, non-tender abdomen Skin: other (Cool RLE, no pulse palpable) Neurologic: AAOx3, CN II-XII Intact Psychiatric: interacting appropriately, not anxious Lab Data & Imaging Review 10/08/17 21:05 10/08/17 21:05 WBC 7.75 10^3/uL (3.80-9.50) 10/08/17 21:05 RBC 4.88 10^6/uL (4.18-5.33) 10/08/17 21:05 Hgb 15.0 g/dL (12.6-16.3) 10/08/17 21:05 POC Hgb 15.6 gm/dL (12.6-16.3) 10/08/17 21:13 Hct 43.3 % (38.0-47.0) 10/08/17 21:05 POC Hct 46 % (38-47) 10/08/17 21:13 MCV 88.7 fL (81.5-99.8) 10/08/17 21:05 MCH 30.7 pg (27.9-34.1) 10/08/17 21:05 MCHC 34.6 g/dL (32.4-36.7) 10/08/17 21:05 RDW 13.5 % (11.5-15.2) 10/08/17 21:05 Plt Count 216 10^3/uL (150-400) 10/08/17 21:05 MPV 9.7 fL (8.7-11.7) 10/08/17 21:05 Neut % (Auto) 64.7 % (39.3-74.2) 10/08/17 21:05 Lymph % (Auto) 25.9 % (15.0-45.0) 10/08/17 21:05 [place] % (Auto) 5.7 % (4.5-13.0) 10/08/17 21:05 Eos % (Auto) 2.8 % (0.6-7.6) 10/08/17 21:05 Baso % (Auto) 0.5 % (0.3-1.7) 10/08/17 21:05 Nucleat RBC Rel Count 0.0 % (0.0-0.2) 10/08/17 21:05 Absolute Neuts (auto) 5.01 10^3/uL (1.70-6.50) 10/08/17 21:05 Absolute Lymphs (auto) 2.01 10^3/uL (1.00-3.00) 10/08/17 21:05 Absolute Monos (auto) 0.44 10^3/uL (0.30-0.80) 10/08/17 21:05 Absolute Eos (auto) 0.22 10^3/uL (0.03-0.40) 10/08/17 21:05 Absolute Basos (auto) 0.04 10^3/uL (0.02-0.10) 10/08/17 21:05 Absolute Nucleated RBC 0.00 10^3/uL (0-0.01) 10/08/17 21:05 Immature Gran % 0.4 % (0.0-1.1) 10/08/17 21:05 Immature Gran # 0.03 10^3/uL (0.00-0.10) 10/08/17 21:05 PT 20.6 SEC (12.0-15.0) H 10/08/17 21:05 INR 1.76 (0.83-1.16) H 10/08/17 21:05 APTT 31.9 SEC (23.0-38.0) 10/08/17 21:05 POC Sodium 137 mEq/L (135-145) 10/08/17 21:13 Sodium 137 mEq/L (135-145) 10/08/17 21:05 POC Potassium 3.9 mEq/L (3.3-5.0) 10/08/17 21:13 Potassium 4.7 mEq/L (3.3-5.0) 10/08/17 21:05 POC Chloride 99 mEq/L (97-110) 10/08/17 21:13 Chloride 99 mEq/L (97-110) 10/08/17 21:05 Carbon Dioxide 21 mEq/l (22-31) L 10/08/17 21:05 Anion Gap 17 mEq/L (8-16) H 10/08/17 21:05 POC BUN 8 mg/dL (7-23) 10/08/17 21:13 BUN 9 mg/dL (7-23) 10/08/17 21:05 Creatinine 0.5 mg/dL (0.6-1.0) L 10/08/17 21:05 POC Creatinine 0.4 mg/dL (0.6-1.0) L 10/08/17 21:13 Estimated GFR > 60 10/08/17 21:05 Glucose 281 mg/dL (70-100) H 10/08/17 21:05 POC Glucose 301 mg/dL (70-100) H 10/08/17 21:13 Calcium 9.1 mg/dL (8.5-10.4) 10/08/17 21:05 Specimen Hemolysis 161 10/08/17 21:05 Imaging Review: Imaging Impressions Extremity Venous Study 10/08/17 20:47 Impression: Negative. No deep venous thrombosis. Findings discussed with Emergency Department Physician Leather Patcher, Enzo Galan PA-C, on October 08, 2017 at 2117. Visualized and Interpreted EKG results: Yes EKG Interpretation: Positive for: other (Atrial fibrillation) Assessment & Plan Assessment: 67 yo F w/ CAD, PVD, DM, and AF p/w R leg pain and found to have femoral artery stent occlusion. Plan: 1. PVD c/b R femoral a. stent occlusion - Patient presents with R leg pain for one day; CTA suggestive of stent occlusion. She has has various stents placed in her lower extremities for PVD. She has diabetes and continues to smoke. - Heparin gtt overnight - Discussed case with Dr. Diamond of general surgery who recommends IR consultation - IR consult placed for possible intervention, NPO @ [place] - Oxycodone PRN for pain control 2. AF - Currently with elevated HR, likely related to pain from above. She takes metoprolol and warfarin as an outpatient for this. - Continue home medications - Monitor daily INR - Monitor on telemetry 3. CAD - s/p prior KOBI, continue home medications 4. IDDM - Will manage BG w/ SSI while inpatient. - BG ACHS, D50 IV PRN ordered for hypoglycemia Diet NPO @ [place] Ppx - Heparin gtt Code - Full Dispo - Admit under inpatient status
[2017-10-09 06:03] LABS: PLATELET COUNT 189 10^3/uL (150-400)
[2017-10-09 06:16] LABS: INR 1.94 (0.83-1.16); PROTIME(PATIENT) 22.2 SEC (12.0-15.0)
[2017-10-09] MEDS: INSULIN LISPRO 100 UNIT/ML SC SCH ×3 (09:13→17:20)
[2017-10-09] MEDS ORDERED: MIDAZOLAM 2 MG/2 ML VIAL ONE (11:03)
[2017-10-09] MEDS ORDERED: fentaNYL 100 MCG/2 ML INJ ONE (11:03)
[2017-10-09] MEDS ORDERED: ALTEPLASE 2 MG VIAL IVP PRN (11:09)
[2017-10-09] MEDS ORDERED: FLUMAZENIL 0.5 MG/5 ML MDV IVP PRN (11:09)
[2017-10-09] MEDS ORDERED: HEPARIN 10,000 UNIT/10 ML MDV (1,000 UNIT/ML) IVP PRN (11:09)
[2017-10-09] MEDS ORDERED: PROTAMINE SULFATE 50 MG/5 ML VIAL IVP PRN (11:09)
[2017-10-09] MEDS ORDERED: NALOXONE HCL 0.4 MG/ML INJ IVP PRN (11:09)
[2017-10-09] MEDS ORDERED: MIDAZOLAM 2 MG/2 ML VIAL IVP PRN (11:09)
[2017-10-09] MEDS ORDERED: fentaNYL 100 MCG/2 ML INJ IVP PRN (11:09)
[2017-10-09] MEDS ORDERED: MEPERIDINE 25 MG/ML SYR IVP PRN (11:09)
[2017-10-09] MEDS ORDERED: GLUCAGON HCL 1 MG VIAL IVP PRN (11:09)
--- NOTE | 2017-10-09 11:14 | PDPROPOC ---
Sedation Plan of Care Sedation Plan of Care: vital signs stable, mental status noted, patient educated of risks, benefits, alternatives, patient can tolerate sedation ASA Classification: ASA 3 Planned drugs: fentanyl, midazolam Mallampati Score: Class 4 Mallampati Reference Image: Patient passed 3-3-2 rule?: Yes
[2017-10-09] MEDS ORDERED: IOPAMIDOL (ISOVUE-300) 100 ML BTL ONE (11:16)
[2017-10-09] MEDS ORDERED: LIDOCAINE 1% 300 MG/30 ML SDV ONE (11:16)
--- NOTE | 2017-10-09 11:18 | PDMN ---
Medical Necessity Medical necessity: MCG: S1310, Percutaneous Revascularization, lower extremity ( surgery pending), A-1 days: Inpatient for 67 y/o w/ RLE pain, cool/pulseless right foot, mild SOB and CP. Scan showed new right femoral artery stent occlusion. Multiple comorbidities, current Afib (HR 120 and irregular), BP 149/ 109, Diabetic, COPD. Heparin gtt required. Hx extensive stent placement for PVD.
--- NOTE | 2017-10-09 11:27 | SOAPPROG ---
SOAP Progress Note Assessment/Plan: Assessment: no overnight concerns. right foot coolness unchanged. no other new complaints. Afebrile. comfortable. foot warm, sensate. no calf tenderness. right SFA stent occlusion. for IR lysis today. patient aware of distal emboli post procedure. Plan: 10/09/17 11:25 Objective: Vital Signs Temp Pulse Resp BP Pulse Ox 36.5 C 75 14 162/71 H 92 10/09/17 10:50 10/09/17 10:50 10/09/17 10:50 10/09/17 10:50 10/09/17 10:50 Laboratory Results 10/09/17 05:50 10/09/17 05:50 10/08/17 10/09/17 10/10/17 05:59 05:59 05:59 Intake Total 320 Output Total 900 250 Balance -580 -250 PT 22.2 SEC (12.0-15.0) H 10/09/17 05:50 INR 1.94 (0.83-1.16) H 10/09/17 05:50 ICD10 Worksheet Patient Problems: Problems Problem Status Onset Atrial fibrillation Acute Occlusion of right femoral artery Acute Diabetes mellitus type 2 Active Atrial fibrillation with RVR Acute Chest pressure Acute Coronary artery disease Acute Hyperlipidemia Acute Hypertension Acute Peripheral vascular disease Acute
[2017-10-09] MEDS ORDERED: PROMETHAZINE HCL 25 MG/ML INJ IVP PRN (12:34)
--- NOTE | 2017-10-09 12:38 | PDRADPN ---
Radiology Procedure Note Date of Procedure: 10/09/17 Radiologist: Fouzia Morin Anesthesia: IV Sedation Pre-op Diagnosis: RLE ARTERIAL CLOT Post-op Diagnosis: SAME Indication: COLD LEG Procedure: RLE RUNOFF AND TPA LYSIS Finding(s): SEE REPORT Inf/Abcess present in the surg proc area at time of surgery?: No Complications: NONE
[2017-10-09] MEDS ORDERED: HEPARIN/DEXTROSE 500 ML IV SCH (12:45)
[2017-10-09] MEDS ORDERED: ALTEPLASE 5 MG in NS 100 ML IV SCH (13:00)
[2017-10-09] MEDS ORDERED: HYDROmorphONE/DILAUDID 1 MG/ML INJ ONE (14:52)
[2017-10-09] MEDS: LORazepam 1 MG TAB PO PRN (14:54)
[2017-10-09] MEDS ORDERED: HYDROmorphONE/DILAUDID 1 MG/ML INJ IVP PRN (14:58)
--- NOTE | 2017-10-09 15:53 | ASMTCMCOM ---
CM Note CM Note Notes: Pt is s/p TPA lysis for RLE arterial clot. She has a hx of DVT, CAD, COPD, DM2, peripheral artery disease, afib. She is and lives in [place]. She has a son and daughter in the area. CM will follow for any d/c needs. Date Signed: 10/09/2017 03:53 PM Electronically Signed By:DESMOND Romero
[2017-10-09] MEDS: ALTEPLASE 5 MG in NS 100 ML IV SCH (17:12)
[2017-10-09] MEDS: hydrALAZINE 20 MG/ML VIAL IVP PRN (17:39)
[2017-10-09] MEDS: busPIRone 5 MG TAB PO SCH (20:21)
[2017-10-09] MEDS: METOPROLOL TARTRATE 50 MG TAB PO SCH (20:22)
[2017-10-09] MEDS: PARoxetine HCL 20 MG TAB PO SCH (20:23)
[2017-10-10] MEDS: ALTEPLASE 5 MG in NS 100 ML IV SCH (04:24)
[2017-10-10] MEDS: hydrALAZINE 20 MG/ML VIAL IVP PRN ×2 (06:21→19:08)
[2017-10-10 06:25] LABS: PLATELET COUNT 170 10^3/uL (150-400)
--- NOTE | 2017-10-10 06:42 | HOSPPROG ---
Hospitalist Progress Note Assessment/Plan: 67 yo F w/ CAD, PVD, DM, and AF p/w R leg pain and found to have femoral artery stent occlusion. Plan: 1. PVD c/b R femoral a. stent occlusion - Patient presents with R leg pain for one day; CTA suggestive of stent occlusion. She has has various stents placed in her lower extremities for PVD. She has diabetes and continues to smoke. - taken to IR for RLE lysis and tpa, monitoring in ICU overnight, daughter at bedside concerned about pain and that foot looks worse 2. AF - Currently with elevated HR, likely related to pain from above. She takes metoprolol and warfarin as an outpatient for this. - Continue home medications - Monitor daily INR - Monitor on telemetry 3. CAD - s/p prior KOBI, continue home medications 4. IDDM - Will manage BG w/ SSI while inpatient. - BG ACHS, D50 IV PRN ordered for hypoglycemia Diet NPO @ [place] Ppx - Heparin gtt Code - Full Dispo - Admit under inpatient status Patient new to my care. High risk requring ICU level care due to TPA > 30 min critical care time spent in above Subjective: sp IR for TPA, foot hurts, cold Objective: Vital Signs Temp Pulse Resp BP Pulse Ox 36.7 C 68 15 193/71 H 94 10/10/17 04:00 10/10/17 06:00 10/10/17 06:00 10/10/17 06:21 10/10/17 06:00 Laboratory Results 10/10/17 06:05 10/09/17 05:50 10/09/17 10/10/17 10/11/17 05:59 05:59 05:59 Intake Total 320 866.7 Output Total 900 1575 Balance -580 -708.3 PT 22.2 SEC (12.0-15.0) H 10/09/17 05:50 INR 1.94 (0.83-1.16) H 10/09/17 05:50 awake alert anicteric op clear rrr no mrg cta b soft nt nd rle with cold white foot no pulses ICD10 Worksheet Patient Problems: Problems Problem Status Onset Diabetes mellitus type 2 Active Peripheral vascular disease Acute Coronary artery disease Acute Hypertension Acute Hyperlipidemia Acute Atrial fibrillation Acute Chest pressure Acute Atrial fibrillation with RVR Acute Occlusion of right femoral artery Acute
--- NOTE | 2017-10-10 06:44 | HOSPPROG ---
Hospitalist Progress Note Assessment/Plan: 67 yo F w/ CAD, PVD, DM, and AF p/w R leg pain and found to have femoral artery stent occlusion. Plan: 1. PVD c/b R femoral a. stent occlusion - Patient presents with R leg pain for one day; CTA suggestive of stent occlusion. She has has various stents placed in her lower extremities for PVD. She has diabetes and continues to smoke. - taken to IR for RLE lysis and tpa, monitoring in ICU overnight, daughter at bedside concerned about pain and that foot looks worse 2. AF - Currently with elevated HR, likely related to pain from above. She takes metoprolol and warfarin as an outpatient for this. - Continue home medications - Monitor daily INR - Monitor on telemetry 3. CAD - s/p prior KOBI, continue home medications 4. IDDM - Will manage BG w/ SSI while inpatient. - BG ACHS, D50 IV PRN ordered for hypoglycemia Diet NPO @ [place] Ppx - Heparin gtt Code - Full Dispo - Admit under inpatient status Patient new to my care. High risk requring ICU level care due to TPA > 30 min critical care time spent in above Objective: Vital Signs Temp Pulse Resp BP Pulse Ox 36.7 C 68 15 193/71 H 94 10/10/17 04:00 10/10/17 06:00 10/10/17 06:00 10/10/17 06:21 10/10/17 06:00 Laboratory Results 10/10/17 06:05 10/09/17 05:50 10/09/17 10/10/17 10/11/17 05:59 05:59 05:59 Intake Total 320 866.7 Output Total 900 1575 Balance -580 -708.3 PT 22.2 SEC (12.0-15.0) H 10/09/17 05:50 INR 1.94 (0.83-1.16) H 10/09/17 05:50 ICD10 Worksheet Patient Problems: Problems Problem Status Onset Atrial fibrillation Acute Occlusion of right femoral artery Acute Diabetes mellitus type 2 Active Atrial fibrillation with RVR Acute Chest pressure Acute Coronary artery disease Acute Hyperlipidemia Acute Hypertension Acute Peripheral vascular disease Acute
[2017-10-10] MEDS: LORazepam 1 MG TAB PO PRN (07:17)
[2017-10-10] MEDS: METOPROLOL TARTRATE 50 MG TAB PO SCH ×2 (09:00→20:03)
[2017-10-10] MEDS: busPIRone 5 MG TAB PO SCH ×2 (09:01→20:01)
[2017-10-10] MEDS: LISINOPRIL 10 MG TAB PO SCH (09:01)
[2017-10-10] MEDS: PARoxetine HCL 20 MG TAB PO SCH ×2 (09:01→20:06)
[2017-10-10] MEDS: INSULIN LISPRO 100 UNIT/ML SC SCH ×3 (09:02→18:07)
[2017-10-10] MEDS: CYANO/VITAMIN B12 1000 MCG TAB PO SCH (09:28)
[2017-10-10] MEDS ORDERED: ALTEPLASE 2 MG VIAL IVP PRN (13:22)
[2017-10-10] MEDS ORDERED: MIDAZOLAM 2 MG/2 ML VIAL IVP PRN (13:22)
[2017-10-10] MEDS ORDERED: MEPERIDINE 25 MG/ML SYR IVP PRN (13:22)
[2017-10-10] MEDS ORDERED: fentaNYL 100 MCG/2 ML INJ IVP PRN (13:22)
[2017-10-10] MEDS ORDERED: HEPARIN 10,000 UNIT/10 ML MDV (1,000 UNIT/ML) IVP PRN ×2 (13:22→16:56)
[2017-10-10] MEDS ORDERED: NALOXONE HCL 0.4 MG/ML INJ IVP PRN (13:22)
[2017-10-10] MEDS ORDERED: PROTAMINE SULFATE 50 MG/5 ML VIAL IVP PRN (13:22)
[2017-10-10] MEDS ORDERED: FLUMAZENIL 0.5 MG/5 ML MDV IVP PRN (13:22)
[2017-10-10] MEDS ORDERED: GLUCAGON HCL 1 MG VIAL IVP PRN (13:22)
[2017-10-10] MEDS ORDERED: IOPAMIDOL (ISOVUE-300) 100 ML BTL ONE (13:38)
--- NOTE | 2017-10-10 13:50 | SOAPPROG ---
SOAP Progress Note Assessment/Plan: Assessment/Plan: Doing well s/p RLE TPA lysis. Continue to monitor vitals. Will reassess when patient awake. 10/10/17 14:00 Subjective: s/p RLE TPA lysis. Patient asleep during visit, discussed case with her daughter. Her daughter states the procedure went well. Her leg improved in color and temperature within hours after procedure. Some pain in RLE- well managed with dilaudid. Objective: Vital Signs Temp Pulse Resp BP Pulse Ox 37.1 C 71 14 107/44 L 96 10/10/17 13:30 10/10/17 13:30 10/10/17 13:30 10/10/17 13:30 10/10/17 13:30 Laboratory Results 10/10/17 06:05 10/09/17 05:50 10/09/17 10/10/17 10/11/17 05:59 05:59 05:59 Intake Total 320 866.7 Output Total 900 1575 Balance -580 -708.3 PT 22.2 SEC (12.0-15.0) H 10/09/17 05:50 INR 1.94 (0.83-1.16) H 10/09/17 05:50 Physical exam: Gen: patient asleep during exam, afebrile Extremities: bilateral lower extremities dry, pink, and warm. RLE no longer cold to touch. CV: posterior tibial and dorsalis pedis pulse 1+ bilateral Skin: normal ICD10 Worksheet Patient Problems: Problems Problem Status Onset Atrial fibrillation Acute Occlusion of right femoral artery Acute Diabetes mellitus type 2 Active Atrial fibrillation with RVR Acute Chest pressure Acute Coronary artery disease Acute Hyperlipidemia Acute Hypertension Acute Peripheral vascular disease Acute
[2017-10-10] MEDS ORDERED: PROTAMINE SULFATE 50 MG/5 ML VIAL IVP ONE ×2 (14:47→15:01)
[2017-10-10] MEDS ORDERED: fentaNYL 100 MCG/2 ML INJ ONE (14:49)
[2017-10-10] MEDS ORDERED: MIDAZOLAM 2 MG/2 ML VIAL ONE (14:49)
--- NOTE | 2017-10-10 15:54 | PDRADPN ---
Radiology Procedure Note Date of Procedure: 10/10/17 Radiologist: Matheus eCrvantes Anesthesia: IV Sedation, Local (Specify) Pre-op Diagnosis: sucessful lysis Post-op Diagnosis: same Indication: f/u RLE arterial lysis Procedure: RLE runoff Finding(s): No residual SFA thrombus. No lesion requiring plasty. Single vessel runoff via PT. No e/o embolic disease distally. Inf/Abcess present in the surg proc area at time of surgery?: No EBL: 50-100 Complications: none
[2017-10-10] MEDS ORDERED: CLOPIDOGREL BISULFATE 75 MG TAB PO ONE (17:00)
[2017-10-10] MEDS ORDERED: HEPARIN/DEXTROSE 500 ML IV SCH (17:00)
--- NOTE | 2017-10-10 17:34 | HOSPPROG ---
Hospitalist Progress Note Assessment/Plan: 67 yo F w/ CAD, PVD, DM, and AF p/w R leg pain and found to have femoral artery stent occlusion. Plan: 1. PVD c/b R femoral artery stent occlusion - Patient presents with R leg pain for one day; CTA suggestive of stent occlusion. She has has various stents placed in her lower extremities for PVD. She has diabetes and continues to smoke. - taken to IR for RLE lysis and tpa, now s/p successful lysis and color/warmth returned to foot 2. AF - Currently with elevated HR, likely related to pain from above. She takes metoprolol and warfarin as an outpatient for this. - Continue home medications - Monitor daily INR - Monitor on telemetry 3. CAD - s/p prior KOBI, continue home medications 4. IDDM - Will manage BG w/ SSI while inpatient. - BG ACHS, D50 IV PRN ordered for hypoglycemia Diet NPO @ [place] Ppx - Heparin gtt Code - Full Dispo - Admit under inpatient status Subjective: no significant overnight events, patient somnolent post meds but pain improved Objective: Vital Signs Temp Pulse Resp BP Pulse Ox 36.5 C 66 13 145/53 H 97 10/10/17 16:17 10/10/17 16:45 10/10/17 16:45 10/10/17 16:45 10/10/17 16:45 Laboratory Results 10/10/17 06:05 10/09/17 05:50 10/09/17 10/10/17 10/11/17 05:59 05:59 05:59 Intake Total 320 866.7 0 Output Total 900 1575 Balance -580 -708.3 0 PT 22.2 SEC (12.0-15.0) H 10/09/17 05:50 INR 1.94 (0.83-1.16) H 10/09/17 05:50 awake alert anicteric op clear rrr no mrg cta b soft nt nd rle with cold white foot no pulses ICD10 Worksheet Patient Problems: Problems Problem Status Onset Atrial fibrillation Acute Occlusion of right femoral artery Acute Diabetes mellitus type 2 Active Atrial fibrillation with RVR Acute Chest pressure Acute Coronary artery disease Acute Hyperlipidemia Acute Hypertension Acute Peripheral vascular disease Acute
[2017-10-10] MEDS: oxyCODONE IR 5 MG TAB PO PRN (20:11)
[2017-10-11] MEDS ORDERED: LIDOCAINE 1% 300 MG/30 ML SDV ONE (07:45)
[2017-10-11] MEDS: INSULIN LISPRO 100 UNIT/ML SC SCH ×2 (08:06→11:48)
[2017-10-11] MEDS: METOPROLOL TARTRATE 50 MG TAB PO SCH (08:07)
[2017-10-11] MEDS: LISINOPRIL 10 MG TAB PO SCH (08:08)
[2017-10-11] MEDS: PARoxetine HCL 20 MG TAB PO SCH (08:08)
[2017-10-11] MEDS: busPIRone 5 MG TAB PO SCH (08:09)
[2017-10-11] MEDS ORDERED: CLOPIDOGREL BISULFATE 75 MG TAB PO SCH (09:00)
[2017-10-11] MEDS: CYANO/VITAMIN B12 1000 MCG TAB PO SCH (09:41)
[2017-10-11 13:09] VITALS: BP 122/45
--- NOTE | 2017-10-11 13:37 | ASDISCHSUM ---
Discharge Information Plan Status:Home with No Needs Medically Cleared to Leave:10/11/2017 Discharge Date:10/11/2017 CM D/C Disposition:Home, Routine, Self-Care ADT D/C Disposition:Home, Routine, Self-Care Projected Discharge Date:10/11/2017 12:00 AM Transportation at D/C: Discharge Delay Reason: Follow-Up Date:10/11/2017 12:00 AM Discharge Slot:2 - 12:01 pm - 18:00 pm Final Diagnosis:Femoral artery stent occlusion Placement Information Patient Contact Information Contact Name:NATHALY Relationship:Son Address: Work Phone: City: [facility] Phone: [facility] [employer] Code: Email: Financial Information Financial Class:Medicare Advantage Plans Primary Plan Desc:[employer] MEDICARE Primary Plan Number:[id number] Secondary Plan Desc: Secondary Plan Number: Assessment Information [facility] CM Progress Note CM Note CM Note Notes: Pt is s/p TPA lysis for RLE arterial clot. She has a hx of DVT, CAD, COPD, DM2, peripheral artery disease, afib. She is and lives in [place]. She has a son and daughter in the area. CM will follow for any d/c needs. Date Signed: 10/09/2017 03:53 PM Electronically Signed By:DESMOND Romero Intervention Information
--- NOTE | 2017-10-11 13:40 | ASMTDCNOTE ---
Case Management Discharge Discharge Order Complete? Answers: Yes Patient to Obtain Answers: Independently Medications Transportation Arranged Answers: Family/Friends Family Notified Answers: Yes Notes: son, Jaxon Discharge Comments Notes: Patient is d/c'ing home with outpatient follow-up. No further needs. Date Signed: 10/11/2017 01:40 PM Electronically Signed By:Coty Henry LCSW
[2017-10-11 13:50] LABS: INR 1.72 (0.83-1.16); PROTIME(PATIENT) 20.3 SEC (12.0-15.0)
--- NOTE | 2017-10-11 14:56 | SOAPPROG ---
SOAP Progress Note Assessment/Plan: Assessment: right foot feeling much better. no calf pain. no left groin complaints. no further bleeding. afebrile. puncture site flat, approp tender. right leg with palp pop/DP 2+. foot pink and warm. doing very well s/ p IR lysis with complete patency of long segment SFA. cont anticoag. cont asa. care plan reviewed with dr. kiran chu. will plan to see back in office for ongoing surveillance in 2 weeks. no overnight concerns. right foot coolness unchanged. no other new complaints. Afebrile. comfortable. foot warm, sensate. no calf tenderness. right SFA stent occlusion. for IR lysis today. patient aware of distal emboli post procedure. Plan: 10/09/17 11:25 10/11/17 14:54 Objective: Vital Signs Temp Pulse Resp BP Pulse Ox 36.9 C 80 13 122/45 H 94 10/11/17 08:00 10/11/17 12:00 10/11/17 12:00 10/11/17 12:00 10/11/17 12:00 Laboratory Results 10/10/17 06:05 10/09/17 05:50 10/10/17 10/11/17 10/12/17 05:59 05:59 05:59 Intake Total 866.7 743.2 Output Total 1575 725 100 Balance -708.3 18.2 -100 PT 20.3 SEC (12.0-15.0) H 10/11/17 11:10 INR 1.72 (0.83-1.16) H 10/11/17 11:10 ICD10 Worksheet Patient Problems: Problems Problem Status Onset Diabetes mellitus type 2 Active Atrial fibrillation Acute Atrial fibrillation with RVR Acute Chest pressure Acute Coronary artery disease Acute Hyperlipidemia Acute Hypertension Acute Occlusion of right femoral artery Acute Peripheral vascular disease Acute
== END 2017-10-11 14:22 | disposition home or self-care (01) | DRG 253 ==
LOC: OBSVTOIN 23:07 → F2W 23:45 → F2N 10-09 13:53
PROVIDERS: ADMIT Student in an Organized Health Care Education/Training Program; ATTEND Student in an Organized Health Care Education/Training Program
PROC: 3E05317 Introduction of Other Thrombolytic into Peripheral Artery, Percutaneous Approach (ICD-10-PCS; principal; 2017-10-09)
PROC: 047C3ZZ Dilation of Right Common Iliac Artery, Percutaneous Approach (ICD-10-PCS; principal; 2017-10-09)
DX: T82.856A Stenosis of peripheral vascular stent, initial encounter (principal); I74.3 Embolism and thrombosis of arteries of the lower extremities; E11.51 Type 2 diabetes mellitus with diabetic peripheral angiopathy without gangrene; I48.91 Unspecified atrial fibrillation; J44.9 Chronic obstructive pulmonary disease, unspecified; E78.5 Hyperlipidemia, unspecified; Z79.01 Long term (current) use of anticoagulants; Z72.0 Tobacco use
CPT/HCPCS: 82435-PO; 82565-PO; 82947-PO; 84132-PO; 84295-PO; 84520-PO; 85014-PO; 85520-90; 96374; C1725; C1757; C1769; C1892; C1894; J0360; J1170; J1644; J1815; J2250; J2310; J2405; J2720; J2997; J3010; Q9967

== ENCOUNTER → 2017-11-05 | Outpatient (CLI) | payer OTHER | LOC: BMCIMAGING 10:08 | PROVIDERS: ATTEND Physician Assistant | DX: Z47.1 Aftercare following joint replacement surgery (principal); S22.41XA Multiple fractures of ribs, right side, initial encounter for closed fracture; Z96.611 Presence of right artificial shoulder joint ==

== ENCOUNTER 2018-03-10 20:01 | Observation (INO) | payer OTHER ==
[2018-03-10] MEDS ORDERED: ASPIRIN 81 MG CHEWABLE TAB PO ONE (20:34)
[2018-03-10] MEDS: NITROGLYCERIN 0.4 MG BTL SL PRN ×2 (20:49→21:19)
[2018-03-10] MEDS ORDERED: POTASSIUM CL 20 MEQ TAB PO ONE (21:17)
--- NOTE | 2018-03-10 22:09 | EDPHY ---
H & P Stated Complaint: CP, thinks she is in A-fib Time Seen by Provider: 03/10/18 20:23 HPI/ROS: CHIEF COMPLAINT: Intermittent atrial fibrillation, chest pain, chest pressure HISTORY OF PRESENT ILLNESS: 68-year-old female with a history of coronary artery disease with 1 stent, peripheral vascular disease, hypertension, diabetes , and intermittent atrial fibrillation presents reporting that over the last 2- 3 days she has been in and out of AFib. This is not uncommon for her, and she can typically tell when she develops atrial fibrillation secondary to a sensation of palpitations. However, today she developed chest pressure which is unusual for her. Described 5/10 chest pressure associated with intermittent diaphoresis. Some lightheadedness. No significant shortness of breath. Patient takes warfarin daily and last INR was 1.9. She has also been taking regular doses of ibuprofen secondary to some arthritis in her hand. Denies fevers or chills. Denies cough, vomiting, diarrhea, urinary complaints, lightheadedness, or syncope. REVIEW OF SYSTEMS: A comprehensive 10 system review of systems was reviewed and is otherwise negative aside from elements mentioned in the history of present illness and medical decision making. PAST MEDICAL HISTORY: Diabetes, peripheral vascular disease, coronary artery disease, hypertension, history of DVTs, intermittent atrial fibrillation SOCIAL HISTORY: Here with her daughter. Primary care physician is in [place] although she has been seen numerous times at [facility]. VITAL SIGNS initial heart rate at triage a noted by the nursing staff to be irregularly irregular, atrial fibrillation. Patient was noted to only have frequent PVCs on the monitor during my examination. Blood pressure 220/100. GENERAL: Well-developed, well-nourished, complaining of chest pressure, 5/10. HEENT: Atraumatic. Eyes: No icterus, no injection. Mouth: moist mucous membranes. No erythema or lesions. Neck: supple with no adenopathy. No JVD. LUNGS: Clear to auscultation bilaterally, no wheezes, rhonchi or rales. CARDIAC: Irregular, no rubs murmurs or gallops. ABDOMEN: Soft, nontender, nondistended, bowel sounds normal. BACK: No CVA tenderness. EXTREMITIES: No trauma. No edema. Range of motion is normal throughout. NEURO: Alert and oriented, grossly nonfocal. SKIN: Warm and dry, no rash. PSYCHIATRIC: Normal mentation, no agitation. - Personal History Current Tetanus/Diphtheria Vaccine: Yes Current Tetanus Diphtheria and Acellular Pertussis (TDAP): Yes Tetanus Vaccine Date: 2009 - Medical/Surgical History Hx Asthma: No Hx Chronic Respiratory Disease: Yes Hx Diabetes: Yes Hx Cardiac Disease: Yes Hx Renal Disease: No Hx Cirrhosis: No Hx Alcoholism: No Hx HIV/AIDS: No Hx Splenectomy or Spleen Trauma: No Other PMH: cad, pvd, smoker, HTN, diabetes, bilateral femerol stents, A-FIB, depression/anxiety, R shoulder replacement, hysterectomy, R distal leg - dvt, cardiac stent - Social History Smoking Status: Heavy smoker Constitutional: Initial Vital Signs Temperature (C) 36.7 C 03/10/18 20:07 Heart Rate 70 03/10/18 20:07 Respiratory Rate 16 03/10/18 20:07 Blood Pressure 220/100 H 03/10/18 20:07 O2 Sat (%) 92 03/10/18 20:07 O2 Delivery Mode Room Air O2 (L/minute) 2 Allergies/Adverse Reactions: azithromycin Allergy (Verified 10/08/17 20:39) Diarrhea cephalexin monohydrate [From Keflex] Allergy (Verified 10/08/17 20:39) Abdominal Pain ciprofloxacin [From Cipro] Allergy (Verified 10/08/17 20:39) SEVERE GI ISSUES ciprofloxacin HCl [From Cipro] Allergy (Verified 10/08/17 20:39) metformin Allergy (Verified 10/08/17 20:39) Diarrhea morphine Allergy (Verified 10/08/17 20:39) BEHAVIORAL CHANGES Home Medications: Medication Instructions Recorded Ibuprofen [Motrin (*)] 200 - 600 mg PO DAILY PRN 03/22/17 Metoprolol Tartrate 75 mg PO BID #60 tablet 03/23/17 Insulin NPH Human Isophane 8 unit SQ DAILY 07/17/17 [Novolin N] Lisinopril [Zestril 10 mg (*)] 10 mg PO DAILY 07/17/17 busPIRone [Buspar (*)] 7.5 mg PO BID 07/17/17 Cyanocobalamin [Vitamin B12 (*)] 1,000 mcg PO DAILY 08/13/17 Insulin NPH Human Isophane 12 unit SQ HS 08/13/17 [Novolin N] PARoxetine HCL [Paxil 20mg (*)] 40 mg PO BID 10/09/17 Warfarin Sodium [Coumadin 5MG (*)] 5 mg PO DAILY #30 tab 10/11/17 Gabapentin 03/10/18 Medical Decision Making - Diagnostics EKG Interpretation: 12-LEAD EKG: Please see the full report in [facility]. My interpretation: Sinus rhythm, multiple premature atrial complexes. Imaging Results: Imaging Impressions Chest X-Ray 03/10/18 20:35 Impression: 1. Mild pulmonary venous prominence may suggest low-grade congestive heart failure. 2. Query airways disease. 3. See above report for additional findings. Xray: Chest x-ray was obtained. I viewed the images myself on the PACS system. My interpretation of the images is: No significant cardiopulmonary findings. The radiology interpretation is: Pending. I discussed the results with the patient. ED Course/Re-evaluation: 68-year-old female with multiple comorbidities presents with chest pressure and intermittent atrial fibrillation. The EKG has no acute ischemic changes. Patient received aspirin 324 mg by mouth. She was started on nitroglycerin sublingually. Pain decreased to 3/10 with the 1st nitroglycerin, and was resolved with the 2nd nitroglycerin. Bedside point of care troponin was negative. Patient's other laboratory evaluation demonstrates a PT of 31 and INR 2.6. Patient potassium was slightly low at 3.0 patient received 40 mEq KCL by mouth to help with the cardiac irregularities. Chest x-ray demonstrates no acute findings. Patient's course was discussed with the hospitalist service, Dr. Valdez. Patient will be admitted to the [facility] for further evaluation of her chest discomfort. EMTALA form was signed by the patient. Differential Diagnosis: After history and physical examination, the differential for chest pain was considered, including but not limited to, myocardial ischemia, acute coronary syndrome, pulmonary embolus, chest wall pain, pleural inflammation and pulmonary infectious causes. Consult/Admit Bed Type: Dr. Leroy Pate, U - Data Points Laboratory Results: 03/10/18 03/10/18 20:51 20:50 POC Sodium 145 mEq/L mEq/L (135-145) POC Potassium 3.0 mEq/L L mEq/L (3.3-5.0) POC Chloride 101.0 mEq/L mEq/L (97-110) POC Total CO2 28 mEq/L mEq/L (22-31) POC BUN 19 mg/dL mg/dL (7-23) POC Creatinine 1.0 mg/dL mg/dL (0.6-1.0) POC Glucose 174 mg/dL H mg/dL (70-100) POC Calcium 9.6 mg/dL mg/dL (8.5-10.4) POC Troponin I 0.00 ng/mL ng/mL (0.00-0.08) Medications Given: Nitroglycerin (Nitrostat) 0.4 mg SL Q5M PRN PRN Reason: Chest Pain Last Admin: 03/10/18 21:19 Dose: 1 tab Discontinued Medications Aspirin (Aspirin) 324 mg PO EDNOW ONE Stop: 03/10/18 20:35 Last Admin: 03/10/18 20:49 Dose: 324 mg Potassium Chloride (Klor-Con) 40 meq PO ONCE ONE Stop: 03/10/18 21:18 Last Admin: 03/10/18 21:21 Dose: 40 meq Point of Care Test Results: CBC CBC Collection Date 03/10/18 CBC Collection Time 20:41 WBC 6.3 RBC 4.74 HGB 15.2 HCT 42.7 PLT 195 Neut # 3.5 Neut 56.5 LYMPH # 2.3 LYMPH 36.3 Other WBC # 0.5 Other WBC 7.2 MCV 90.1 Chemistry 03/10/18 03/10/18 20:51 20:50 POC Sodium 145 mEq/L mEq/L (135-145) POC Potassium 3.0 mEq/L L mEq/L (3.3-5.0) POC Chloride 101.0 mEq/L mEq/L (97-110) POC Total CO2 28 mEq/L mEq/L (22-31) POC BUN 19 mg/dL mg/dL (7-23) POC Creatinine 1.0 mg/dL mg/dL (0.6-1.0) POC Glucose 174 mg/dL H mg/dL (70-100) POC Calcium 9.6 mg/dL mg/dL (8.5-10.4) POC Troponin I 0.00 ng/mL ng/mL (0.00-0.08) Departure - Departure Disposition: [facility] Inpatient Acute Clinical Impression: Chest pain Qualifiers: Chest pain type: unspecified Qualified Code(s): R07.9 - Chest pain, unspecified Atrial fibrillation Qualifiers: Atrial fibrillation type: paroxysmal Qualified Code(s): I48.0 - Paroxysmal atrial fibrillation Condition: Fair
[2018-03-11] MEDS ORDERED: ONDANSETRON 4 MG/2 ML VIAL IVP PRN (00:26)
[2018-03-11] MEDS ORDERED: ONDANSETRON DISINTEGRATING 4 MG TAB PO PRN (00:26)
[2018-03-11] MEDS ORDERED: ACETAMINOPHEN 325 MG TAB PO PRN (00:26)
[2018-03-11] MEDS ORDERED: D50W 25 GM/50 ML SYR IVP PRN (00:34)
--- NOTE | 2018-03-11 01:22 | PDGENHP ---
History and Physical - Chief Complaint Chest pain - History of Present Illness 68 yo F w/ hx of CAD, PAD, AF, and IDDM presents with chest pain. The patient experienced an episode of chest pressure this afternoon. She rated it as a 5/10 severity. She denies associated symptoms. The pain lasted several hours until she arrived at the [facility] [place]. The pain improved with the first tab of nitroglycerin and completely resolved with the second tab. She remains chest pain free. Her initial evaluation for ACS was negative. She is being admitted for further work- up. At the time of my evaluation she denies other symptoms. Case discussed with Dr. Pate; records reviewed and summarized above. History Information - Allergies/Home Medication List Allergies/Adverse Reactions: azithromycin Allergy (Verified 10/08/17 20:39) Diarrhea cephalexin monohydrate [From Keflex] Allergy (Verified 10/08/17 20:39) Abdominal Pain ciprofloxacin [From Cipro] Allergy (Verified 10/08/17 20:39) SEVERE GI ISSUES ciprofloxacin HCl [From Cipro] Allergy (Verified 10/08/17 20:39) metformin Allergy (Verified 10/08/17 20:39) Diarrhea morphine Allergy (Verified 10/08/17 20:39) BEHAVIORAL CHANGES Home Medications: Ibuprofen [Motrin (*)] 200 - 600 mg PO DAILY PRN 03/22/17 [Last Taken 03/22/17] Insulin NPH Human Isophane [Novolin N] 8 unit SQ DAILY 07/17/17 [Last Taken ] Lisinopril [Zestril 10 mg (*)] 10 mg PO DAILY 07/17/17 [Last Taken 1 Week Ago ~ 10/02/17] busPIRone [Buspar (*)] 7.5 mg PO BID 07/17/17 [Last Taken 10/08/17 09:00] Cyanocobalamin [Vitamin B12 (*)] 1,000 mcg PO DAILY 08/13/17 [Last Taken ] Insulin NPH Human Isophane [Novolin N] 12 unit SQ HS 08/13/17 [Last Taken ] PARoxetine HCL [Paxil 20mg (*)] 40 mg PO BID 10/09/17 [Last Taken 10/08/17 09:00 ] Gabapentin 03/10/18 [Last Taken Unknown] I have personally reviewed and updated: family history, medical history - Past Medical History coronary artery disease, COPD, diabetes type 2, peripheral artery disease - Surgical History Reports: hysterectomy, coronary stent Additional surgical history: R shoulder arthroplasty. Multiple peripheral stents - Family History Additional family history: Denies family history of blood clots - Social History Smoking Status: Heavy smoker Review of Systems Review of Systems: ROS: 10pt was reviewed & negative except for what was stated in HPI & below Physical Exam Physical Exam: Temp Pulse Resp BP Pulse Ox 36.7 C 65 15 142/70 H 98 03/10/18 20:07 03/11/18 00:10 03/11/18 00:10 03/11/18 00:10 03/11/18 00:10 O2 (L/minute) 2 Constitutional: no apparent distress, not in pain Eyes: PERRL, EOMI Ears, Nose, Mouth, Throat: moist mucous membranes, no oral mucosal ulcers Cardiovascular: regular rate and rhythym, no murmur, rub, or gallop Respiratory: no respiratory distress, clear to auscultation Gastrointestinal: normoactive bowel sounds, soft, non-tender abdomen Skin: warm, normal color Musculoskeletal: full muscle strength, no muscle tenderness Neurologic: AAOx3, CN II-XII Intact Psychiatric: interacting appropriately, not anxious Lab Data & Imaging Review POC Sodium 145 mEq/L (135-145) 03/10/18 20:50 POC Potassium 3.0 mEq/L (3.3-5.0) L 03/10/18 20:50 POC Chloride 101.0 mEq/L (97-110) 03/10/18 20:50 POC Total CO2 28 mEq/L (22-31) 03/10/18 20:50 POC BUN 19 mg/dL (7-23) 03/10/18 20:50 POC Creatinine 1.0 mg/dL (0.6-1.0) 03/10/18 20:50 POC Glucose 174 mg/dL (70-100) H 03/10/18 20:50 POC Calcium 9.6 mg/dL (8.5-10.4) 03/10/18 20:50 POC Troponin I 0.00 ng/mL (0.00-0.08) 03/10/18 20:51 Imaging Review: Imaging Impressions Chest X-Ray 03/10/18 20:35 Impression: 1. Mild pulmonary venous prominence may suggest low-grade congestive heart failure. 2. Query airways disease. 3. See above report for additional findings. Visualized and Interpreted EKG results: Yes EKG Interpretation: Positive for: normal sinsus rhythm, other (PACs) Assessment & Plan Assessment: 68 yo F w/ hx of CAD, PAD, AF, and DM presents with chest pain. Plan: 1. Chest pain - Moderate central chest pressure present for several hours and resolved with nitroglycerin. ECG (personally reviewed/interpreted) does not reveal acute ischemia and additional troponin is negative. She does have a history of TX and stent placement in 2009. HEART score of 5 denoting need for further testing. - Observe in PCU - Monitor on telemetry, trend cardiac enzymes - S/p ASA 324 mg x1; NTG PRN for chest pain - Per chest pain protocol, will further evaluate with Lexiscan stress w/ MPI noting hx of prior revascularization and inability to exercise (per patient) 2. Hx CAD - Patient suffered an TX in 2009 and was treated with an LAD stent at that time. - On BB and MCKENZIE as outpatient, continue pending reconciliation - Acute management as above 3. AF - In NSR during my evaluation; she is on warfarin chronically for this. - Continue warfarin, pharmacy to dose - Monitor on telemetry - Daily INR 4. IDDM - She takes insulin NPH 11/8 AM/PM as outpatient. - NPH 11/28 for now noting NPO for stress test, increase as indicated - Monitor BG ACHS; D50 IV PRN for hypoglycemia 5. PAD - S/p multiple interventions in the past, denies symptoms currently. Diet - NPO Code - Full Ppx - warfarin Dispo - Admit under observation status
[2018-03-11] MEDS ORDERED: NITROGLYCERIN 0.4 MG BTL SL PRN (01:28)
[2018-03-11 04:32] LABS: PLATELET COUNT 172 10^3/uL (150-400)
[2018-03-11 04:40] LABS: INR 2.17 (0.83-1.16); PROTIME(PATIENT) 24.2 SEC (12.0-15.0)
[2018-03-11] MEDS ORDERED: INSULIN NPH HUMAN 100 UNITS/ML SYR SC SCH (07:30)
--- NOTE | 2018-03-11 08:43 | ASMTLACE ---
QUIQUE Comorbidities - select Answers: Coronary Artery Disease all that apply Diabetes (uncontrolled or controlled) Opioid dependence / Chronic pain Peripheral vascular disease Other Notes: AFib; HTN; Hx of DVTs # of Emergency department Answers: 3-4 visits in the last 6 months Social determinants Answers: Mental health diagnosis (anxiety, depression, pers onality disorders, etc.) Score: 15 Date Signed: 03/11/2018 08:42 AM Electronically Signed By:Samantha Akhtar
[2018-03-11] MEDS ORDERED: PARoxetine HCL 20 MG TAB PO SCH (09:00)
[2018-03-11] MEDS ORDERED: busPIRone 5 MG TAB PO SCH (09:00)
[2018-03-11] MEDS ORDERED: CYANO/VITAMIN B12 1000 MCG TAB PO SCH (09:00)
[2018-03-11] MEDS ORDERED: LISINOPRIL 10 MG TAB PO SCH (09:00)
[2018-03-11] MEDS ORDERED: METOPROLOL TARTRATE 50 MG TAB PO SCH (09:00)
[2018-03-11] MEDS ORDERED: GABAPENTIN 300 MG CAP PO SCH ×2 (12:00→21:00)
[2018-03-11] MEDS ORDERED: REGADENOSON 0.4 MG/5 ML SYR IVP ONE (12:56)
--- NOTE | 2018-03-11 15:17 | ASMTCMCOM ---
CM Note CM Note Notes: CM met with pt to discuss home care needs. Pt recently had [facility] for medication management and closed off. Pt does not feel it is necessary to re-initiate services with [facility] at this time as pt feels family is appropriately supportive and she is not currently home bound. CM available should something change. Plan: Independent Date Signed: 03/11/2018 03:15 PM Electronically Signed By:Liza Richardson RN
[2018-03-11 15:19] VITALS: BP 156/74
[2018-03-11] MEDS ORDERED: WARFARIN SODIUM 5 MG TAB PO SCH (16:00)
--- NOTE | 2018-03-11 16:26 | ASMTLACE ---
LACE Length of stay for Answers: Less than 1 day current admission Acuity / Level of Answers: No Care: Did the patient have an inpatient admission? Comorbidities - select Answers: Coronary Artery Disease all that apply Diabetes (uncontrolled or controlled) Opioid dependence / Chronic pain Peripheral vascular disease Other Notes: AFib; HTN; Hx of DVTs # of Emergency department Answers: 3-4 visits in the last 6 months Social determinants Answers: Mental health diagnosis (anxiety, depression, pers onality disorders, etc.) Score: 15 Date Signed: 03/11/2018 04:26 PM Electronically Signed By:Liza Richardson RN
--- NOTE | 2018-03-11 17:00 | CPR ---
DATE OF PROCEDURE: 03/11/2018 PROCEDURE: Lexiscan nuclear stress test. ORDERING PHYSICIAN: . REASON FOR TEST: Chest pain. Resting EKG shows a sinus bradycardia with a rate of 58. Resting bloo d pressure initially 190/80, oxygen saturation 96%. Recheck 170/80. STRESS PORTION: Lexiscan nuclear stress test. Lexiscan was injected rapidly, followed by saline flush. Cardiolite was then injected, followed by s favian flush. She did have a headache and chest discomfort. Her stomach was hurting. She then did h ave an emesis. Blood pressure 160/82, heart rate 65. There were no EKG changes. RECOVERY: She did spontaneously recover. Resting blood pressure 150/86, oxygen saturation 96%, hear t rate 72. Caffeine was given and all symptoms did dissipate. At this time she currently is stable for nuclear imaging. /[id number]/MODL
--- NOTE | 2018-03-11 17:36 | PDDCSUM ---
Discharge Summary Discharge Summary: Date of Admission: 03/10/2018 Date of Discharge: 03/11/2018 Studies: 1. Lexiscan stress test with MPI Discharge Diagnoses: 1. Chest pain, likely GI in etiology 2. CAD/AL s/p LAD stent in 2009 3. Atrial fibrillation on warfarin 4. Insulin dependent diabetes 5. PAD s/p remote revascularizations 6. Tobacco use Brief Hospital Course: 68 yo F w/ hx of CAD, PAD, AF, and DM presented with one episode chest pain. Trop/ecgs negative. Underwent lexiscan stress with MPI which showed minimal area of possible reversible ischemia at apex; discussed with cardiology who did not feel that this was significant. Telemetry remained quiet and she was chest pain free after admission. Her symptoms seemed more consistent with esophageal spasm vs reflux. She is already on plavix, statin, beta ismael for her CAD/ PAD. Medications: Please refer to EMR for complete list. No changes made this admission. Follow Up Plan: 1. She needs to re-establish with a cloth washer (she has been lost to follow up ). Her PCP is currently referring her for this. 2. Strongly recommended tobacco cessation. Physical Exam: Vitals and telemetry reviewed, stable. Alert and oriented, RRR without murmur, lungs clear, abdomen soft, no edema or JVD.
--- NOTE | 2018-03-11 19:57 | CPEKG ---
Test Reason : OPEN Blood Pressure : / mmHG Vent. Rate : 073 BPM Atrial Rate : 074 BPM P-R Int : 127 ms QRS Dur : 082 ms QT Int : 443 ms P-R-T Axes : 069 073 084 degrees QTc Int : 489 ms Sinus rhythm Atrial premature complexes Probable left atrial enlargement Nonspecific T abnormalities, lateral leads Borderline prolonged QT interval Confirmed by Lisa Gaspar [id number] on 03/11/2018 7:57:45 PM Referred By: Confirmed By:Lisa Gaspar
[2018-03-11] MEDS ORDERED: WARFARIN SODIUM 2.5 MG TAB PO SCH (21:00)
[2018-03-11] MEDS ORDERED: CLOPIDOGREL BISULFATE 75 MG TAB PO SCH (21:00)
[2018-03-16] MEDS ORDERED: WARFARIN SODIUM 5 MG TAB PO SCH (21:00)
== END 2018-03-11 16:31 | disposition home or self-care (01) ==
LOC: CED 20:01 → F2W 23:42
PROVIDERS: ADMIT Internal Medicine; ATTEND Internal Medicine
DX: R07.9 Chest pain, unspecified (principal); I25.10 Atherosclerotic heart disease of native coronary artery without angina pectoris; I48.0 Paroxysmal atrial fibrillation; E11.9 Type 2 diabetes mellitus without complications; I73.9 Peripheral vascular disease, unspecified; J44.9 Chronic obstructive pulmonary disease, unspecified; F17.200 Nicotine dependence, unspecified, uncomplicated; Z79.01 Long term (current) use of anticoagulants; Z95.5 Presence of coronary angioplasty implant and graft
CPT/HCPCS: 71046; 78452; 93005; 93017; 99285; A9500; G0378; J1815; J2785; 80048-PO; 84484-PO

== ENCOUNTER 2018-05-13 10:05 | Emergency (ER) | payer OTHER ==
[2018-05-13] MEDS ORDERED: SULFAMETHOX/TMP 800/160 MG 1 TAB PO ONE (10:49)
--- NOTE | 2018-05-13 11:17 | EDPHY ---
H & P Time Seen by Provider: 05/13/18 10:08 HPI/ROS: CHIEF COMPLAINT: Blood in urine HISTORY OF PRESENT ILLNESS: Patient presents with complaints of dysuria, frequency, urgency since Sunday afternoon. She states it has gotten worse. She denies back pain, fevers, chills, nausea, vomiting. She did notice some blood on the toilet paper when she urinated this morning. Otherwise has had no blood in her urine. She states there is a little bit of lower abdominal discomfort but no significant abdominal pain. States that she used to have frequent UTIs but nothing recently. She states that she does not check her blood sugars daily and that her last A1c was 8.2. Contents of 10 point review of systems otherwise negative except for what is mentioned in HPI. General Appearance: Alert, no distress. Eyes: Pupils equal and round no pallor or injection. ENT, Mouth: Mucous membranes moist. Respiratory: There are no retractions, lungs are clear to auscultation. Cardiovascular: Regular rate and rhythm. Gastrointestinal: Abdomen is soft and nontender, no masses, bowel sounds normal. Neurological: Awake, alert, no focal neurologic deficits. Skin: Warm and dry, no rashes. Musculoskeletal: Neck is supple nontender. Extremities are symmetrical, full range of motion, no edema. Ecchymosis noted to the right lateral CVA region. Unknown trauma. Psychiatric: Patient is oriented X 3, there is no agitation. Medical/surgical history: Coronary artery disease, peripheral vascular disease , hypertension, insulin-dependent diabetes, atrial fibrillation, depression, anxiety, DVT. Procedures include vascular stenting bilateral femoral, right shoulder replacement, hysterectomy, cardiac stenting. Social history: Heavy smoker. Smoking Status: Heavy smoker Constitutional: Initial Vital Signs Temperature (C) 36.2 C 05/13/18 10:13 Heart Rate 63 05/13/18 10:13 Respiratory Rate 16 05/13/18 10:13 Blood Pressure 154/77 H 05/13/18 10:13 O2 Sat (%) 93 05/13/18 10:13 O2 Delivery Mode Room Air Allergies/Adverse Reactions: azithromycin Allergy (Verified 05/13/18 10:22) Diarrhea cephalexin monohydrate [From Keflex] Allergy (Verified 05/13/18 10:22) Abdominal Pain ciprofloxacin [From Cipro] Allergy (Verified 05/13/18 10:22) SEVERE GI ISSUES ciprofloxacin HCl [From Cipro] Allergy (Verified 05/13/18 10:22) metformin Allergy (Verified 05/13/18 10:22) Diarrhea morphine Allergy (Verified 05/13/18 10:22) BEHAVIORAL CHANGES Home Medications: Medication Instructions Recorded Metoprolol Tartrate 75 mg PO BID #60 tablet 03/23/17 Insulin NPH Human Isophane 11 unit SQ DAILY 07/17/17 [Novolin N] Lisinopril [Zestril 10 mg (*)] 10 mg PO DAILY 07/17/17 busPIRone [Buspar (*)] 7.5 mg PO BID 07/17/17 Cyanocobalamin [Vitamin B12 (*)] 1,000 mcg PO DAILY 08/13/17 Insulin NPH Human Isophane 8 unit SQ HS 08/13/17 [Novolin N] PARoxetine HCL [Paxil 20mg (*)] 40 mg PO DAILY 10/09/17 Gabapentin [Neurontin 300 MG (*)] 300 mg PO BID@,03/10/18 Clopidogrel Bisulfate [Plavix (*)] 75 mg PO HS 03/11/18 Gabapentin [Neurontin 300 MG (*)] 600 mg PO HS 03/11/18 Warfarin Sodium [Coumadin 2.5MG 2.5 mg PO MOTUWETHFR@03/11/18 (*)] Warfarin Sodium [Coumadin 5MG (*)] 5 mg PO SUSA@03/11/18 Sulfamethox/Tmp 800/160 mg 1 tab PO BID #14 tab 05/13/18 [Bactrim Ds] Medical Decision Making Differential Diagnosis: Differential diagnosis includes urinary tract infection, pyelonephritis, vaginitis, diabetic ketoacidosis. After evaluation suspect acute urinary tract infection without evidence of upper tract disease. No fevers, nausea, vomiting , inability to use oral antibiotics. Patient with several medication allergies so chose to treat with Bactrim as she has tolerated this in the past. Electrolytes were checked with no signs of , DKA, hyperkalemia, renal failure but recommended she follow up with her primary care doctor later this week for potassium recheck in the context of Bactrim given with warfarin/[id number]. Also recommended she stay well hydrated and to try to maintain better glucose control. Urine culture sent as well. Understands follow-up and return precautions. Stable for discharge. - Data Points Laboratory Results: 05/13/18 11:14 POC Sodium 140 mEq/L mEq/L (135-145) POC Potassium 4.4 mEq/L mEq/L (3.3-5.0) POC Chloride 101.0 mEq/L mEq/L (97-110) POC Total CO2 28 mEq/L mEq/L (22-31) POC BUN 13 mg/dL mg/dL (7-23) POC Creatinine 0.9 mg/dL mg/dL (0.6-1.0) POC Glucose 266 mg/dL H mg/dL (70-100) POC Calcium 9.0 mg/dL mg/dL (8.5-10.4) Medications Given: Discontinued Medications Trimethoprim/Sulfamethoxazole (Bactrim Ds) 1 ea PO EDNOW ONE PRN Reason: Protocol Stop: 05/13/18 10:50 Last Admin: 05/13/18 11:33 Dose: 1 ea Point of Care Test Results: Chemistry 05/13/18 11:14 POC Sodium 140 mEq/L mEq/L (135-145) POC Potassium 4.4 mEq/L mEq/L (3.3-5.0) POC Chloride 101.0 mEq/L mEq/L (97-110) POC Total CO2 28 mEq/L mEq/L (22-31) POC BUN 13 mg/dL mg/dL (7-23) POC Creatinine 0.9 mg/dL mg/dL (0.6-1.0) POC Glucose 266 mg/dL H mg/dL (70-100) POC Calcium 9.0 mg/dL mg/dL (8.5-10.4) Urine Dip Collection Date 05/13/18 Collection Time 10:25 Specific [place] (1.002-1.030) 1.030 PH (5.0-7.5) 6.0 Leukocytes (Negative) 1+ Nitrites (Negative) Negative Protein (Negative) 3+ Glucose (Negative) 1+ Ketones (Negative) Negative Urobilnogen (0.2-1.0 EU) 1.0 Bilirubin (Negative) Negative Blood (Negative) 3+ Departure - Departure Disposition: Home, Routine, Self-Care Clinical Impression: Urinary tract infection Qualifiers: Urinary tract infection type: site unspecified Hematuria presence: with hematuria Qualified Code(s): N39.0 - Urinary tract infection, site not specified Condition: Fair Instructions: Sulfamethoxazole/Trimethoprim (By mouth), Urinary Tract Infection in Women (ED) Additional Instructions: Stay well-hydrated, drink plenty of water. Be careful with your blood sugars and keep them under control. You should be seen by your primary care physician by the end of the week to have your urine cultures checked an your electrolytes rechecked. If you developed vomiting, fever, worsening symptoms you should return to the emergency department for re-evaluation. Referrals: Gabby Osborn [Student [facility]] - As per Instructions Prescriptions: Sulfamethox/Tmp 800/160 mg [Bactrim Ds] 1 tab PO BID #14 tab
[2018-05-13 11:59] VITALS: BP 160/67
== END 2018-05-13 12:05 | disposition home or self-care (01) ==
LOC: CED 10:05
DX: N30.91 Cystitis, unspecified with hematuria (principal); E11.9 Type 2 diabetes mellitus without complications; I25.10 Atherosclerotic heart disease of native coronary artery without angina pectoris; I73.9 Peripheral vascular disease, unspecified
CPT/HCPCS: 80048-ER; 99283-ER

== ENCOUNTER 2018-06-11 15:07 | Emergency (ER) | payer OTHER ==
[2018-06-11 16:18] LABS: PLATELET COUNT 187 10^3/uL (150-400)
[2018-06-11] MEDS ORDERED: IOPAMIDOL (ISOVUE-300) 100 ML BTL ONE (16:37)
[2018-06-11 16:40] LABS: INR 2.24 (0.83-1.16); PROTIME(PATIENT) 24.8 SEC (12.0-15.0)
[2018-06-11] MEDS ORDERED: HYDROmorphONE/DILAUDID 2 MG/ML INJ IVP ONE (17:33)
[2018-06-11 18:20] VITALS: BP 180/84
--- NOTE | 2018-06-11 18:25 | EDPHY ---
H & P Stated Complaint: RUQ ABD PAIN X 1 MONTH WORSE LAST FEW DAYS/NAUSEA Time Seen by Provider: 06/11/18 15:53 HPI/ROS: CHIEF COMPLAINT: Chronic abdominal pain HISTORY OF PRESENT ILLNESS: The patient presents the ED with complaints of 1 month of chronic right-sided abdominal pain. Patient was diagnosed with a possible urinary tract infection early in the course of this illness. She took antibiotics without significant improvement of her symptoms. The patient denies any hematemesis, melena or hematuria. The patient denies any history of fall or trauma. The patient denies any recent abdominal surgery. She reports her pain is moderate in nature. It is worsened with palpation and movement. REVIEW OF SYSTEMS: A comprehensive 10 point review of systems is otherwise negative aside from elements mentioned in the history of present illness. Source: Patient Exam Limitations: No limitations - Personal History Current Tetanus Diphtheria and Acellular Pertussis (TDAP): Yes Tetanus Vaccine Date: 2009 - Medical/Surgical History Hx Asthma: No Hx Chronic Respiratory Disease: Yes Hx Diabetes: Yes Hx Cardiac Disease: Yes Hx Renal Disease: No Hx Cirrhosis: No Hx Alcoholism: No Hx HIV/AIDS: No Hx Splenectomy or Spleen Trauma: No Other PMH: cad, pvd, smoker, HTN, diabetes, bilateral femerol stents, A-FIB, depression/anxiety, R shoulder replacement, hysterectomy, R distal leg - dvt, cardiac stent - Social History Smoking Status: Heavy smoker - Physical Exam Exam: General Appearance: Alert, no distress Eyes: Pupils equal and round no pallor or injection ENT, Mouth: Mucous membranes moist Respiratory: There are no retractions, lungs are clear to auscultation Cardiovascular: Regular rate and rhythm Gastrointestinal: Minimal epigastric tenderness, normal bowel sounds, no distention Neurological: A&O, normal motor function, normal sensory exam, normal cranial nerves Skin: Warm and dry, no rashes, specifically no evidence of zoster Musculoskeletal: Neck is supple nontender Extremities: symmetrical, full range of motion Psychiatric: Patient is oriented X 3, there is no agitation Constitutional: Initial Vital Signs Temperature (C) 36.6 C 06/11/18 15:11 Heart Rate 63 06/11/18 15:11 Respiratory Rate 17 06/11/18 15:11 Blood Pressure 213/83 H 06/11/18 15:11 O2 Sat (%) 94 06/11/18 15:11 O2 Delivery Mode Nasal Cannula O2 (L/minute) 2 Allergies/Adverse Reactions: azithromycin Allergy (Verified 06/11/18 15:09) Diarrhea cephalexin monohydrate [From Keflex] Allergy (Verified 06/11/18 15:09) Abdominal Pain ciprofloxacin [From Cipro] Allergy (Verified 06/11/18 15:09) SEVERE GI ISSUES ciprofloxacin HCl [From Cipro] Allergy (Verified 06/11/18 15:09) metformin Allergy (Verified 06/11/18 15:09) Diarrhea morphine Allergy (Verified 06/11/18 15:09) BEHAVIORAL CHANGES Home Medications: Medication Instructions Recorded Metoprolol Tartrate 75 mg PO BID #60 tablet 03/23/17 Insulin NPH Human Isophane 11 unit SQ DAILY 07/17/17 [Novolin N] Lisinopril [Zestril 10 mg (*)] 10 mg PO DAILY 07/17/17 busPIRone [Buspar (*)] 7.5 mg PO BID 07/17/17 Cyanocobalamin [Vitamin B12 (*)] 1,000 mcg PO DAILY 08/13/17 Insulin NPH Human Isophane 8 unit SQ HS 08/13/17 [Novolin N] PARoxetine HCL [Paxil 20mg (*)] 40 mg PO DAILY 10/09/17 Gabapentin [Neurontin 300 MG (*)] 300 mg PO BID@03/10/18 Clopidogrel Bisulfate [Plavix (*)] 75 mg PO HS 03/11/18 Gabapentin [Neurontin 300 MG (*)] 600 mg PO HS 03/11/18 Warfarin Sodium [Coumadin 2.5MG 2.5 mg PO MOTUWETHFR@03/11/18 (*)] Warfarin Sodium [Coumadin 5MG (*)] 5 mg PO SUSA@03/11/18 Medical Decision Making - Diagnostics Imaging Results: Imaging Impressions Abdomen CT 06/11/18 16:33 Impression: 1. Moderate uncomplicated diverticulosis sigmoid colon without diverticulitis. 2. No CT evidence of appendicitis, abscess or bowel obstruction. 3. Stable atherosclerotic calcification of the abdominal aorta and branch vessels as detailed above. Findings discussed with Todd Groves M.D. at 17:17 hour, 06/11/2018. ED Course/Re-evaluation: The patient presents the ED for evaluation of 1 month of ongoing abdominal pain which is localized to the right mid quadrant and right upper quadrant. The patient had unremarkable laboratory testing, urinalysis and CT scan performed in the emergency department. The patient was noted to be hypertensive in the emergency department however this improved with pain medications. The patient underwent serial examinations in the ED. At this point time I see no evidence of an obvious emergency condition causing her abdominal pain. I do feel the patient should follow up with Gastroenterology for further workup and management of her symptoms. The patient has been instructed to also follow up with her primary care provider for a blood pressure recheck this week. The patient should return to the ED for markedly worsening symptoms or other concerns. Differential Diagnosis: Differential diagnosis considered includes perforation, obstruction, pancreatitis, cholecystitis, appendicitis, diverticulitis - Data Points Laboratory Results: Laboratory Results 06/11/18 16:00 06/11/18 16:00 06/11/18 06/11/18 06/11/18 16:40 16:20 16:00 WBC RBC Hgb Hct MCV MCH MCHC RDW Plt Count MPV Neut % (Auto) Lymph % (Auto) [place] % (Auto) Eos % (Auto) Baso % (Auto) Nucleat RBC Rel Count Absolute Neuts (auto) Absolute Lymphs (auto) Absolute Monos (auto) Absolute Eos (auto) Absolute Basos (auto) Absolute Nucleated RBC Immature Gran % Immature Gran # PT 24.8 SEC H SEC (12.0-15.0) INR 2.24 H (0.83-1.16) APTT 36.6 SEC SEC (23.0-38.0) Sodium 138 mEq/L mEq/L (135-145) Potassium 4.3 mEq/L mEq/L (3.5-5.2) Chloride 105 mEq/L mEq/L (97-110) Carbon Dioxide 27 mEq/l mEq/l (22-31) Anion Gap 6 mEq/L mEq/L (6-14) BUN 12 mg/dL mg/dL (7-23) Creatinine 0.5 mg/dL L mg/dL (0.6-1.0) Estimated GFR > 60 Glucose 181 mg/dL H mg/dL (70-100) Calcium 8.5 mg/dL mg/dL (8.5-10.4) Total Bilirubin 0.4 mg/dL mg/dL (0.1-1.4) Conjugated Bilirubin 0.4 mg/dL mg/dL (0.0-0.5) Unconjugated Bilirubin 0.0 mg/dL mg/dL (0.0-1.1) AST 20 IU/L IU/L (14-46) ALT 16 IU/L IU/L (9-52) Alkaline Phosphatase 85 IU/L IU/L (38-126) Total Protein 6.7 g/dL g/dL (6.3-8.2) Albumin 4.0 g/dL g/dL (3.5-5.0) Lipase 50 IU/L IU/L (23-300) Urine Color YELLOW Urine Appearance CLEAR Urine pH 7.0 (5.0-7.5) Ur Specific [place] 1.014 (1.002-1.030) Urine Protein 1+ H (NEGATIVE) Urine Ketones NEGATIVE (NEGATIVE) Urine Blood NEGATIVE (NEGATIVE) Urine Nitrate NEGATIVE (NEGATIVE) Urine Bilirubin NEGATIVE (NEGATIVE) Urine Urobilinogen 2.0 EU H EU (0.2-1.0) Ur Leukocyte Esterase NEGATIVE (NEGATIVE) Urine RBC 1-3 /hpf /hpf (0-3) Urine WBC 1-3 /hpf /hpf (0-3) Ur Epithelial Cells TRACE /lpf /lpf (NONE-1+) Urine Bacteria TRACE /hpf H /hpf (NONE SEEN) Urine Mucus TRACE /lpf /lpf (NONE-1+) Urine Glucose 1+ H (NEGATIVE) 06/11/18 16:00 WBC 6.48 10^3/uL 10^3/uL (3.80-9.50) RBC 5.03 10^6/uL 10^6/uL (4.18-5.33) Hgb 15.4 g/dL g/dL (12.6-16.3) Hct 45.4 % % (38.0-47.0) MCV 90.3 fL fL (81.5-99.8) MCH 30.6 pg pg (27.9-34.1) MCHC 33.9 g/dL g/dL (32.4-36.7) RDW 13.9 % % (11.5-15.2) Plt Count 187 10^3/uL 10^3/uL (150-400) MPV 9.9 fL fL (8.7-11.7) Neut % (Auto) 51.0 % % (39.3-74.2) Lymph % (Auto) 38.1 % % (15.0-45.0) [place] % (Auto) 6.2 % % (4.5-13.0) Eos % (Auto) 3.9 % % (0.6-7.6) Baso % (Auto) 0.5 % % (0.3-1.7) Nucleat RBC Rel Count 0.0 % % (0.0-0.2) Absolute Neuts (auto) 3.31 10^3/uL 10^3/uL (1.70-6.50) Absolute Lymphs (auto) 2.47 10^3/uL 10^3/uL (1.00-3.00) Absolute Monos (auto) 0.40 10^3/uL 10^3/uL (0.30-0.80) Absolute Eos (auto) 0.25 10^3/uL 10^3/uL (0.03-0.40) Absolute Basos (auto) 0.03 10^3/uL 10^3/uL (0.02-0.10) Absolute Nucleated RBC 0.00 10^3/uL 10^3/uL (0-0.01) Immature Gran % 0.3 % % (0.0-1.1) Immature Gran # 0.02 10^3/uL 10^3/uL (0.00-0.10) PT INR APTT Sodium Potassium Chloride Carbon Dioxide Anion Gap BUN Creatinine Estimated GFR Glucose Calcium Total Bilirubin Conjugated Bilirubin Unconjugated Bilirubin AST ALT Alkaline Phosphatase Total Protein Albumin Lipase Urine Color Urine Appearance Urine pH Ur Specific [place] Urine Protein Urine Ketones Urine Blood Urine Nitrate Urine Bilirubin Urine Urobilinogen Ur Leukocyte Esterase Urine RBC Urine WBC Ur Epithelial Cells Urine Bacteria Urine Mucus Urine Glucose Medications Given: Discontinued Medications Hydromorphone HCl (Dilaudid) 0.5 mg IVP EDNOW ONE Stop: 06/11/18 17:34 Last Admin: 06/11/18 17:36 Dose: 0.5 mg Morphine Sulfate (Morphine) 4 mg IVP EDNOW ONE Stop: 06/11/18 17:31 Last Admin: 06/11/18 17:32 Dose: Not Given Departure - Departure Disposition: Home, Routine, Self-Care Clinical Impression: Abdominal pain Condition: Good Instructions: Acute Abdominal Pain (ED) Additional Instructions: Please follow-up with your primary care provider for a blood pressure recheck this week. Sometimes we are unable to diagnose an obvious cause of abdominal pain in the Emergency Department. Based upon our evaluation today, we see no obvious explanation for your pain. Because more serious conditions can be difficult to diagnose early in the course of their presentation, we ask that you return to the Emergency Department in 8-12 hours for a recheck if you are still having pain. This is necessary to exclude the development of a more serious condition such as appendicitis or other intra-abdominal emergency. In the event your pain markedly increases before that time or you develop intractable vomiting or fever return to the Emergency Department immediately. I do recommend following up with Gastroenterology for further evaluation of your symptoms. You have been given the number of our on-call director of workforce development who would be happy to see you in follow-up. Referrals: MEGAN MIRELES [Other] - As per Instructions Todd Jones MD [[facility] [place] Primary Care Provider] - As per Instructions
== END 2018-06-11 18:45 | disposition home or self-care (01) ==
DX: R10.11 Right upper quadrant pain (principal); K57.30 Diverticulosis of large intestine without perforation or abscess without bleeding; E11.51 Type 2 diabetes mellitus with diabetic peripheral angiopathy without gangrene; I25.10 Atherosclerotic heart disease of native coronary artery without angina pectoris; I10 Essential (primary) hypertension; I48.91 Unspecified atrial fibrillation; F32.9 Major depressive disorder, single episode, unspecified; F41.9 Anxiety disorder, unspecified; F17.200 Nicotine dependence, unspecified, uncomplicated; Z79.01 Long term (current) use of anticoagulants; Z86.718 Personal history of other venous thrombosis and embolism; Z96.611 Presence of right artificial shoulder joint; Z95.5 Presence of coronary angioplasty implant and graft; Z90.710 Acquired absence of both cervix and uterus
CPT/HCPCS: 74177; 96374; 99285; J1170; Q9967

== ENCOUNTER 2018-08-08 22:00 | Emergency (ER) | payer OTHER ==
[2018-08-08] MEDS ORDERED: TDAP ADULT 0.5 ML INJ (BOOSTRIX) IM ONE (22:17)
--- NOTE | 2018-08-08 22:25 | EDPHY ---
H & P Time Seen by Provider: 08/08/18 22:07 HPI/ROS: HPI Left index finger laceration. 68-year-old female by private vehicle with her daughter. This patient is right- hand dominant. She was using a hand-held assistant food service director device and slipped and got her left index finger caught in the blade of the device. She sustained a jagged and macerated laceration to the distal radial aspect finger pad. No other injury or complaint. She cannot remember the last time she had a tetanus shot. ROS: Constitutional: No fever, no chills. No weakness. Musculoskeletal: As above. Skin: As above. Neurological: No focal weakness or altered sensation. Past medical history: Coronary artery disease, hypertension, type 1 diabetes, atrial fibrillation, bilateral femoral stents, depression and anxiety, hysterectomy, right leg DVT. She is on both Coumadin and Plavix. Social history: Smoker. Here with daughter. No alcohol. Physical Exam: General Appearance: Alert, no distress. This patient is responding to questions appropriately and in full sentences. This patient appears well- hydrated and well-nourished. Eyes: Pupils equal and round no pallor or injection. No lid edema, erythema or injection. Left hand/index finger exam: significant for a macerated jagged laceration measuring approximately 2.5 cm radial aspect of the distal finger pad. The nail is not involved. There is a smaller nonsuturable abrasion measuring about 3 mm in length ulnar aspect of the distal finger pad. The left index finger is neurovascularly intact. Please see wound care note for further details. Neurological: Motor sensory function is grossly intact. Cranial nerves are normal. Gait is normal. Skin: Warm and dry, as above. Extremities are symmetrical except noted. All joints range without pain or impingement. Psychiatric: No agitation. No depression. Database: EKG: Imaging: Procedures: Procedure: Laceration repair. Verbal consent was obtained from the patient. The 2.5 cm laceration on the radial aspect distal finger pad left index finger was anesthetized in the usual fashion by digital block with 0.5% bupivacaine without epinephrine. Excellent anesthesia was obtained. The wound was irrigated, draped and explored to its base with a gloved finger. There were no deep structures involved. No tendon injury was identified. No foreign body was identified on gross exploration. The wound was repaired with 12, 4.0 Ethilon sutures placed in interrupted fashion. The wound repair was tolerated well and there were no complications. The procedure was performed by myself. Emergency department course: Triage vital signs reviewed. The patient has a history of hypertension. She is hypertensive here. She has no complaint of chest pain, shortness of breath. She is not confused. I feel this is likely transient secondary to anxiety and pain. The patient was given a Boostrix vaccine. After suture repair, the wound is properly dressed, wound care was discussed with the patient and her daughter. She feels comfortable going home with her daughter. Follow-up and return to emergency department precautions reviewed. All of their questions were answered. The patient was discharged in good condition with her daughter. Differential Diagnosis: The differential diagnosis on this patient includes but is not limited to left index finger laceration. Retained foreign body, tendon injury, significant neurovascular injury unlikely. This represents a partial list of diagnoses considered. These considerations are based on history, physical exam, past history, reassessment and diagnostic testing. Smoking Status: Heavy smoker Constitutional: Initial Vital Signs Temperature (C) 36.8 C 08/08/18 22:07 Heart Rate 74 08/08/18 22:07 Respiratory Rate 16 08/08/18 22:07 Blood Pressure 191/56 H 08/08/18 22:07 O2 Sat (%) 94 08/08/18 22:07 O2 Delivery Mode Room Air Allergies/Adverse Reactions: azithromycin Allergy (Verified 08/08/18 22:13) Pt reports Diarrhea cephalexin monohydrate [From Keflex] Allergy (Verified 08/08/18 22:13) Pt reports Abdominal Pain ciprofloxacin [From Cipro] Allergy (Verified 08/08/18 22:13) Pt reports SEVERE GI ISSUES ciprofloxacin HCl [From Cipro] Allergy (Verified 08/08/18 22:13) Pt reports GI issues metformin Allergy (Verified 08/08/18 22:13) Pt reports Diarrhea morphine Allergy (Verified 08/08/18 22:13) Pt reports BEHAVIORAL CHANGES Home Medications: Medication Instructions Recorded Clopidogrel 08/08/18 Gabapentin 08/08/18 Lisinopril 08/08/18 Metoprolol Tartrate 08/08/18 Novolin 70/30 (*) 08/08/18 Paroxetine Cr 08/08/18 Warfarin Sodium 08/08/18 busPIRone 08/08/18 Medical Decision Making - Data Points Medications Given: Discontinued Medications Diphtheria/Tetanus/Acell Pertussis (Boostrix) 0.5 ml IM .ONCE ONE Stop: 08/08/18 22:18 Last Admin: 08/08/18 22:25 Dose: 0.5 ml Departure - Departure Disposition: Home, Routine, Self-Care Clinical Impression: Laceration of finger of left hand Condition: Good Instructions: Care For Your Stitches (ED), Laceration (ED) Additional Instructions: Read and follow provided instructions. Sutures are to be removed in 10-12 days. Return here to have the sutures removed. Follow-up with your primary care physician on Sunday for wound check and re- evaluation. Keep wound area dry and clean. The dressing should stay in place until follow- up on Sunday. Continue taking your medication as prescribed. Return to the emergency department for worsening pain, bleeding, swelling, discoloration, signs of infection as noted in instructions or other serious concerns.
[2018-08-08 23:31] VITALS: BP 151/75
== END 2018-08-08 23:31 | disposition home or self-care (01) ==
LOC: CED 22:00
PROC: 0HQGXZZ Repair Left Hand Skin, External Approach (ICD-10-PCS; principal; 2018-08-08)
DX: S61.211A Laceration without foreign body of left index finger without damage to nail, initial encounter (principal); Z23 Encounter for immunization; W26.8XXA Contact with other sharp object(s), not elsewhere classified, initial encounter; Y93.G1 Activity, food preparation and clean up
CPT/HCPCS: 90471-ER; 99283-ER